=== PATIENT | male | born 1930 | race Caucasian/White ===

== ENCOUNTER 2018-06-09 07:13 | Observation (INO) | payer MEDICARE, BC ==
[2018-06-09] MEDS ORDERED: ASPIRIN 81 MG CHEWABLE TABLET PO ONE (07:22)
[2018-06-09] MEDS ORDERED: IPRATROPIUM/ALBUTEROL (0.5MG/3MG) NEB INH ONE (07:25)
--- NOTE | 2018-06-09 07:25 | Emergency Department Record ---
History of Present Illness - General Chief Complaint: Difficulty Breathing Stated Complaint: SHORTNESS AND BREATH Time Seen by Provider: 06/09/18 07:22 Source: Patient, RN notes reviewed - History of Present Illness Initial Comments: patient suddenly SOB this am and he said maybe slightly SOB last night and he recently had pneumonia and treated at [facility] and than to [facility] rehab and discharged from there one week ago to [facility]. Patient has a pacemaker but he is not sure if it a pacer defibrillator. Athletic Monitor Dr. Romero and primary is Dr whitney. Patient denies chest pain and abdominal pain and denies leg pain and no pedal edema but he has had pedal edema in the past and his DrMelissa wanted to double his lasix use to 20 mg BID form once a day. PMH CHF and COPD and he was given a script of doxy 100 mg bid which was stared last night. - Related Data Home Medications Medication Instructions Recorded Confirmed Last Taken Acetaminophen 325 mg PO Q6H PRN 06/09/18 06/09/18 Unknown Apixaban [Eliquis] 5 mg PO BID 06/09/18 06/09/18 06/08/18 20:00 Aspirin 81 mg PO DAILY 06/09/18 06/09/18 06/08/18 08:00 Atorvastatin Calcium 20 mg PO QHS 06/09/18 06/09/18 06/08/18 20:00 Diltiazem HCl [Diltiazem 12Hr ER] 120 mg PO DAILY 06/09/18 06/09/18 06/08/18 08: 00 Doxycycline Monohydrate 100 mg PO BID 06/09/18 06/09/18 Unknown Furosemide [Lasix] 20 mg PO BIDDIUR 06/09/18 06/09/18 06/08/18 14:00 Levothyroxine Sodium 112 mcg PO DAILY 06/09/18 06/09/18 06/08/18 06:00 Magnesium Hydroxide [Milk of 15 ml PO DAILY PRN 06/09/18 06/09/18 Unknown Magnesia] Melatonin 3 mg PO QHS 06/09/18 06/09/18 06/06/18 20:00 Metoprolol Tartrate 50 mg PO BID 06/09/18 06/09/18 06/08/18 20:00 Nitroglycerin 0.4MG [Nitrostat 0.4 mg SL Q5MIN PRN 06/09/18 06/09/18 Unknown 0.4MG] Olanzapine [Zyprexa] 2.5 mg PO BID 06/09/18 06/09/18 06/08/18 20:00 Trolamine Salicylate/Aloe Vera 1 applic TOP TID PRN 06/09/18 06/09/18 Unknown [Aspercreme 10% Cream] Allergies Allergy/AdvReac Type Severity Reaction Status Date / Time No Known Drug Allergies Allergy Verified 06/09/18 07:27 Review of Systems Reviewed: No additional complaints except as noted below Constitutional: Reports: As per HPI. Denies: Chills, Fever, Malaise, Night sweats, Weakness, Weight change Eyes: Reports: As per HPI. Denies: Eye discharge, Eye pain, Photophobia, Vision change ENT: Reports: As per HPI. Denies: Congestion, Dental pain, Ear pain, Epistaxis , Hearing loss, Throat pain Respiratory: Reports: As per HPI, Dyspnea. Denies: Cough, Hemoptysis, Stridor, Wheezes Cardiovascular: Reports: As per HPI. Denies: Arrhythmia, Chest pain, Dyspnea on exertion, Edema, Murmurs, Orthopnea, Palpitations, Paroxysmal nocturnal dyspnea, Rheumatic Fever, Syncope Endocrine: Reports: As per HPI. Denies: Fatigue, Heat or cold intolerance, Polydipsia, Polyuria Gastrointestinal: Reports: As per HPI. Denies: Abdominal pain, Constipation, Diarrhea, Hematemesis, Hematochezia, Melena, Nausea, Vomiting Genitourinary: Reports: As per HPI. Denies: Dysuria, Frequency, Hematuria, Incontinence, Retention, Testicular pain, Testicular mass, Urgency Musculoskeletal: Reports: As per HPI. Denies: Arthralgia, Back pain, Gout, Joint swelling, Myalgia, Neck pain Skin: Reports: As per HPI. Denies: Bruising, Change in color, Change in hair/ nails, Lesions, Pruritus, Rash Neurological: Reports: As per HPI. Denies: Abnormal gait, Confusion, Headache, Numbness, Paresthesias, Seizure, Tingling, Tremors, Vertigo, Weakness Psychiatric: Reports: As per HPI. Denies: Anxiety, Auditory hallucinations, Depression, Homicidal thoughts, Suicidal thoughts, Visual hallucinations Hematological/Lymphatic: Reports: As per HPI. Denies: Anemia, Blood Clots, Easy bleeding, Easy bruising, Swollen glands Physical Exam - General General Appearance: Alert, Oriented x3, Cooperative, Mild distress - Head Head exam: Normal inspection - Eye Eye exam: Normal appearance, PERRL Pupils: Normal accommodation - ENT ENT exam: Normal exam, Mucous membranes moist, Normal external ear exam, Normal orophraynx, TM's normal bilaterally Ear exam: Normal external inspection. negative: External canal tenderness Nasal Exam: Normal inspection. negative: Discharge, Sinus tenderness Mouth exam: Normal external inspection, Tongue normal Teeth exam: Normal inspection. negative: Dental caries Throat exam: Normal inspection. negative: Tonsillar erythema, Tonsillar exudate - Neck Neck exam: Normal inspection, Full ROM. negative: Tenderness - Respiratory Respiratory exam: Decreased breath sounds (more on the right side, no wheezing heard). negative: Respiratory distress - Cardiovascular Cardiovascular Exam: Regular rate, Normal rhythm, Normal heart sounds - GI/Abdominal GI/Abdominal exam: Soft, Normal bowel sounds. negative: Tenderness - Rectal Rectal exam: Deferred - exam: Deferred - Extremities Extremities exam: Normal inspection, Full ROM, Normal capillary refill. negative: Tenderness - Back Back exam: Reports: Normal inspection, Full ROM. Denies: Muscle spasm, Rash noted, Tenderness - Neurological Neurological exam: Alert, Normal gait, Oriented X3, Reflexes normal - Psychiatric Psychiatric exam: Normal affect, Normal mood - Skin Skin exam: Dry, Intact, Normal color, Warm Course - Reevaluation(s) Reevaluation #1: patient is breathing better when back from Xray. 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 Talked with patient anddaughter about doing a CTA with contrast and the use of dye and he has chronic kidney disease. He already is getting treated for a PE now with elliquis and with his kidney don't want to cause his kidney function to get worse. daughter and patient in agreement. Will discus with his bed rubber Dr Romero and daughter also said he had 1.5 liters of fluid removed from his lungs when in [facility] may . 06/09/18 09:29 06/09/18 11:17 Reevaluation #2: discussed case with Dr. Renato ARREGUIN and he recommended treating him here and if worse transfer to [facility]. No beds available 06/09/18 10:42 06/09/18 11:20 No chest pain and he states his breathing is back to normal. Reevaluation #3: talked to daughter and patient and they are willing to stay here and if worse they want to go to [facility]. 06/09/18 11:22 Reevaluation #4: discussed case with Franck LaAIDA and she acceppted to the floor. 06/09/18 11:31 Medical Decision Making - Data Complexity MDM Data: Labs Ordered and/or Reviewed (trop t .06, d dimer 5.42,bnp 7558), X- Ray Ordered and/or Reviewed (bilateral pleural effusion right moderate left mild and some are space disease and mild pulmonary congestion consistent with CHF) - Lab Data Result diagrams: 06/09/18 07:30 06/09/18 07:30 Disposition Clinical Impression: Pleural effusion, Infiltrate of lung present on chest x-ray, Troponin level elevated, D-dimer, elevated Dyspnea Qualifiers: Dyspnea type: shortness of breath Qualified Code(s): R06.02 - Shortness of breath; R06.00 - Dyspnea, unspecified; R06.01 - Orthopnea CHF (congestive heart failure) Qualifiers: Heart failure type: systolic Heart failure chronicity: acute Qualified Code(s) : I50.21 - Acute systolic (congestive) heart failure COPD (chronic obstructive pulmonary disease) Qualifiers: COPD type: COPD with acute exacerbation Qualified Code(s): J44.1 - Chronic obstructive pulmonary disease with (acute) exacerbation Atrial fibrillation Qualifiers: Atrial fibrillation type: chronic Qualified Code(s): I48.2 - Chronic atrial fibrillation CKD (chronic kidney disease) Qualifiers: Chronic kidney disease stage: stage 2 (mild) Qualified Code(s): N18.2 - Chronic kidney disease, stage 2 (mild) Decision to Admit: Admit from ER Condition: (1) Good Forms: Patient Portal Access Time of Disposition: 11:22 Quality - Quality Measures Quality Measures: N/A - Blood Pressure Screening Does Patient Have Any of the Following: No, Active Dx of HTN Blood Pressure Classification: Hypertensive Reading Systolic Measurement: 127 Diastolic Measurement: 97 Screening for High Blood Pressure: Patient Exclusion, Hx of HTN [G9744]
[2018-06-09] MEDS ORDERED: FUROSEMIDE IV 40MG/4ML VIAL IVP ONE (07:42)
[2018-06-09 08:01] LABS: BASO % 0.4 % (0-6); EOS % 5.2 % (0-6); GRAN % 70.9 % (47-80); HEMATOCRIT 42.5 % (42.0-52.0); HEMOGLOBIN 13.7 gm/dl (14.0-18.0); LYMPH % 12.8 % (16-45); MEAN CORPUSCULAR HEMOGLOBIN 31.2 pg (27-33); MEAN CORPUSCULAR HGB CONC 32.2 g/dl (32-36); MEAN PLATELET VOLUME 10.3 fl (7.4-10.4); MONO % 10.7 % (0-9); PLATELET COUNT 252 K/uL (130-400); RED BLOOD COUNT 4.38 M/uL (4.40-5.70); RED CELL DISTRIBUTION WIDTH 15.4 % (11.5-14.5); WHITE BLOOD COUNT W/O DIFF 7.8 K/uL (4.2-12.2)
[2018-06-09 08:09] LABS: CREATININE 1.3 mg/dL (0.7-1.2)
[2018-06-09 08:13] LABS: INFLUENZA A NEGATIVE (NEGATIVE); INFLUENZA B NEGATIVE (NEGATIVE)
[2018-06-09 08:18] LABS: INR 1.2; PARTIAL THROMBOPLASTIN TIME 32.5 SECONDS (24.5-39.1)
[2018-06-09] MEDS ORDERED: AZITHROMYCIN 500 MG TABLET PO ONE (10:41)
[2018-06-09] MEDS ORDERED: CEFTRIAXONE SODIUM 1 GM in 0.9 % SODIUM CHLORIDE 100ML 100 ML IVPB ONE (10:41)
[2018-06-09] MEDS ORDERED: NITROGLYCERIN 0.4MG SL TABLET #25 BTL SL PRN (11:45)
[2018-06-09] MEDS ORDERED: ACETAMINOPHEN 325 MG TAB PO PRN (12:14)
[2018-06-09] MEDS: LEVOTHYROXINE SOD 112 MCG TAB PO SCH (13:30)
[2018-06-09] MEDS: APIXABAN 5MG TABLET PO SCH ×2 (13:49→21:13)
[2018-06-09] MEDS: METOPROLOL TART 50 MG TABLET PO SCH ×2 (13:50→21:04)
[2018-06-09] MEDS: DILTIAZEM HCL 120 MG ER CAPSULE PO SCH (13:50)
[2018-06-09] MEDS: OLANZAPINE 5MG TABLET PO SCH ×2 (13:51→21:05)
[2018-06-09] MEDS ORDERED: LIDOCAINE 4% TOP PRN (14:16)
[2018-06-09] MEDS ORDERED: FUROSEMIDE IV 20MG/2ML VIAL IVP SCH (16:00)
[2018-06-09] MEDS ORDERED: ATORVASTATIN 20 MG TABLET PO SCH (22:00)
[2018-06-09] MEDS ORDERED: MELATONIN 5 MG TABLET PO SCH (22:00)
[2018-06-10] MEDS: LEVOTHYROXINE SOD 112 MCG TAB PO SCH (06:11)
[2018-06-10 06:45] LABS: BLOOD UREA NITROGEN 18 mg/dL (8-23); CREATININE 1.2 mg/dL (0.7-1.2); EST GLOMERULAR FILTRATION RATE > 60 mL/min; GLUCOSE,RANDOM 87 mg/dL (74-109)
--- NOTE | 2018-06-10 07:27 | RADIOLOGY REPORT ---
EXAM: CHEST, TWO VIEWS HISTORY: SHORTNESS OF BREATH THIS MORNING. DIAGNOSED WITH PNEUMONIA ONE WEEK AGO. TECHNIQUE: Upright AP and lateral views of the chest were obtained. Comparison: None. FINDINGS: A dual lead transvenous cardiac stimulator is in place via the left subclavian approach with lead tips in the right atrium and right ventricle respectively. There is opacification of the lower right hemithorax with costophrenic angle blunting consistent with moderate size pleural effusion. There is associated underlying air space disease. These obscure the right heart border limiting evaluation for heart size. Mild air space disease in the retrocardiac left lung base is also suggested associated with a small pleural effusion. The pulmonary vasculature is mildly prominent. No pneumothorax. IMPRESSION: 1. BILATERAL PLEURAL EFFUSIONS, MODERATE IN SIZE ON THE RIGHT AND SMALL ON THE LEFT. THERE IS ASSOCIATED AIR SPACE DISEASE IN EACH LUNG BASE CONSISTENT WITH ATELECTASIS OR INFILTRATE. 2. THE HEART SIZE IS DIFFICULT TO EVALUATE THE RIGHT HEART BORDER IS OBSCURED. THE PULMONARY VASCULATURE APPEARS MILDLY PROMINENT. A COMPONENT OF FLUID OVERLOAD/CHF CANNOT BE EXCLUDED. JOB NUMBER: [id number] [facility]
--- NOTE | 2018-06-10 09:44 | History & Physical ---
History of Present Illness - Date of Service Date of Service for History & Physical: 06/10/18 - History of Present Illness Admitting Diagnosis: chf. dyspnea. copd. right pleural effussion. trop t elevated. CKD History of Present Illness: Sd Bowen is an 87 y.o. male who presented to the [facility] ED on 2018 d/t worsening SOB. On 06/07/18, he was started on Doxycycline 100mg BID and was told to double his lasix dose to 20mg BID from daily by his PCP. His PCP also advised him to present to the ED should he develop a fever, SOB or chills. In the ED, pt denied having chest pain, abdominal pain or leg pain. Reports that recently he was treated for PNA as [facility]. From the hospital, he went to [facility] in [place] for therapy and then just moved to [facility] approximately 1 week ago. Pt reports that he follows with Dr. Glasgow at [facility] cardiology and was actually scheduled to have a RAVI on 06/10/18 at [facility] to monitor a thrombus in his atrial appendage for which he is on Eliquis 5mg BID. PMHx includes CHF, COPD and CKD. Reports having had 1.5L of Fluid removed from his lungs in the past. PCP: Dr. Kingsley Lozano Brokerage Coordinator: Dr. Stalin Glasgow ED Course: Vitals: T 97.1, BP 127/97, HR 102, RR 32, 92% on RA, wt. 141 EKG: Paced Rhythm, underlying Atrial Fibrillation CXR: Bilateral Pleural Effusions, likely atelectasis or infiltrate, CHF could not be excluded D-Dimer: 5.42, Creatinine 1.3, GFR 56, Troponin 0.060, Pro-BNP 7578 06/10/18: Today, pt is resting upright in bed, with daughter August at the bedside. He reports that he is no longer SOB. Denies having any chest pain or abdominal pain. Is able to discuss his medications and medical conditions without difficulty or lack of understanding. He and daughter report that he used to be on 40mg of Lasix daily but was taken off of it while at [facility] and then he filled up with fluid again. His biggest concern this morning is his neuropathic pain. States that his PCP took him off of his Gabapentin and was given a cream but is very unsure as to how often he should put the cream on and who is going to do it for him as he has trouble bending over to reach his feet. Travel Screening - Travel/Exposure Within Last 30 Days Have you traveled within the last 30 days?: No - Travel/Exposure Within Last Year Have you traveled outside the [place] in the last year?: No - Additonal Travel Details Have you been exposed to anyone with a communicable illness?: No - Travel Symptoms Symptom Screening: None Review of Systems Constitutional: Reports: As per HPI. Denies: Chills, Fever, Malaise, Night sweats, Weakness, Weight change Eyes: Reports: As per HPI. Denies: Eye discharge, Eye pain, Photophobia, Vision change ENT: Reports: As per HPI. Denies: Congestion, Dental pain, Ear pain, Epistaxis , Hearing loss, Throat pain Respiratory: Reports: As per HPI. Denies: Cough, Dyspnea, Hemoptysis, Stridor, Wheezes Cardiovascular: Reports: As per HPI. Denies: Arrhythmia, Chest pain, Dyspnea on exertion, Edema, Murmurs, Orthopnea, Palpitations, Syncope Endocrine: Reports: As per HPI. Denies: Fatigue, Heat or cold intolerance, Polydipsia, Polyuria Gastrointestinal: Reports: As per HPI. Denies: Abdominal pain, Constipation, Diarrhea, Hematemesis, Hematochezia, Melena, Nausea, Vomiting Genitourinary: Reports: As per HPI. Denies: Dysuria, Frequency, Hematuria, Incontinence, Retention, Testicular pain, Testicular mass, Urgency Musculoskeletal: Reports: As per HPI. Denies: Arthralgia, Back pain, Gout, Joint swelling, Myalgia, Neck pain Skin: Reports: As per HPI. Denies: Bruising, Change in color, Change in hair/ nails, Lesions, Pruritus, Rash Neurological: Reports: As per HPI. Denies: Abnormal gait, Confusion, Headache, Numbness, Paresthesias, Seizure, Tingling, Tremors, Vertigo, Weakness Psychiatric: Reports: As per HPI. Denies: Anxiety, Auditory hallucinations, Depression, Homicidal thoughts, Suicidal thoughts, Visual hallucinations Hematological/Lymphatic: Reports: As per HPI, Blood Clots (in atrial appendage) . Denies: Anemia, Easy bleeding, Easy bruising, Swollen glands Past Medical History - SOCIAL HISTORY Smoking Status: Former smoker - RESPIRATORY Hx Respiratory Disorders: Yes Hx Bronchitis: Yes Hx Dyspnea: Yes Hx Pneumonia: Yes - CARDIOVASCULAR Hx Abnormal EKG: Yes Hx Chest Pain: Yes Hx CHF: Yes Hx Irregular Heartbeat: Yes (A-fib) - NEURO Hx Neuro Disorders: No - GI Hx GI Disorders: No - Hx Genitourinary Disorders: No - ENDOCRINE Hx Endocrine Disorders: Yes Hx Thyroid Disease: Yes - MUSCULOSKELETAL Hx Musculoskeletal Disorders: Yes Comment:: increased weakness and decreased mobility - PSYCH Hx Psych Problems: Yes Hx Anxiety: Yes Comment:: restless at night - HEMATOLOGY/ONCOLOGY Hx Hematology/Oncology Disorders: No Family Medical History Any Significant Family History?: No Family Hx Comment (NOT TO BE USED IN PLACE OF ITEMS BELOW): Pt not sure H&P Meds/Allergies - Allergies Allergies: Allergies Allergy/AdvReac Type Severity Reaction Status Date / Time No Known Drug Allergies Allergy Verified 06/09/18 07:27 - Home Medications Home Medications Medication Instructions Recorded Confirmed Last Taken Acetaminophen 325 mg PO Q6H PRN 06/09/18 06/09/18 Unknown Apixaban [Eliquis] 5 mg PO BID 06/09/18 06/09/18 06/08/18 20:00 Aspirin 81 mg PO DAILY 06/09/18 06/09/18 06/08/18 08:00 Atorvastatin Calcium 20 mg PO QHS 06/09/18 06/09/18 06/08/18 20:00 Diltiazem HCl [Diltiazem 12Hr ER] 120 mg PO DAILY 06/09/18 06/09/18 06/08/18 08: 00 Doxycycline Monohydrate 100 mg PO BID 06/09/18 06/09/18 Unknown Furosemide [Lasix] 20 mg PO BIDDIUR 06/09/18 06/09/18 06/08/18 14:00 Levothyroxine Sodium 112 mcg PO DAILY 06/09/18 06/09/18 06/08/18 06:00 Magnesium Hydroxide [Milk of 15 ml PO DAILY PRN 06/09/18 06/09/18 Unknown Magnesia] Melatonin 3 mg PO QHS 06/09/18 06/09/18 06/06/18 20:00 Metoprolol Tartrate 50 mg PO BID 06/09/18 06/09/18 06/08/18 20:00 Nitroglycerin 0.4MG [Nitrostat 0.4 mg SL Q5MIN PRN 06/09/18 06/09/18 Unknown 0.4MG] Olanzapine [Zyprexa] 2.5 mg PO BID 06/09/18 06/09/18 06/08/18 20:00 Trolamine Salicylate/Aloe Vera 1 applic TOP TID PRN 06/09/18 06/09/18 Unknown [Aspercreme 10% Cream] Previous Rx's Medication Instructions Recorded Furosemide [Lasix] 20 mg PO BIDDIUR tablet 06/10/18 - Active Medications Active Medications: Current Medications Acetaminophen (Tylenol 325mg) 325 mg PO Q6H PRN PRN Reason: PAIN - MILD (1-4) Apixaban (Eliquis) 5 mg PO BID [facility] Last Admin: 06/09/18 21:13 Dose: 5 mg Aspirin (Ecotrin (Ec)) 325 mg PO DAILY [facility] Atorvastatin Calcium (Lipitor) 20 mg PO QHS [facility] Last Admin: 06/09/18 21:04 Dose: 20 mg Diltiazem HCl (Cardizem Cd) 120 mg PO DAILY [facility] Last Admin: 06/09/18 13:50 Dose: 120 mg Furosemide (Lasix) 20 mg PO BIDDIUR [facility] Levothyroxine Sodium (Synthroid) 112 mcg PO DAILYTHY [facility] Last Admin: 06/10/18 06:11 Dose: 112 mcg Melatonin (Melatonin) 2.5 mg PO QHS [facility] Last Admin: 06/09/18 21:05 Dose: 2.5 mg Metoprolol Tartrate (Lopressor) 50 mg PO BID [facility] Last Admin: 06/09/18 21:04 Dose: 50 mg Nitroglycerin (Nitrostat 0.4mg) 0.4 mg SL Q5MIN PRN PRN Reason: CHEST PAIN Olanzapine (Zyprexa) 2.5 mg PO BID [facility] Last Admin: 06/09/18 21:05 Dose: 2.5 mg Patient Own Med: (Lidocaine 4% Cream) 1 each TOP TID PRN PRN Reason: NEUROPATHIC PAIN Physical Exam - Vital Signs Vital Signs: Vital Signs - Last 24 Hrs Temp Pulse Pulse Pulse Pulse Resp BP 06/10/18 08:00 97.7 F 92 H 14 06/10/18 04:00 98 H 18 06/09/18 23:55 89 18 06/09/18 21:00 16 06/09/18 20:00 97.1 F L 74 16 06/09/18 15:10 84 20 06/09/18 14:54 18 06/09/18 14:40 97.8 F 69 16 06/09/18 13:14 98.2 F 95 H 16 06/09/18 12:57 93 H 16 104/66 06/09/18 09:57 101 H 21 BP Pulse Ox 06/10/18 08:00 129/77 95 06/10/18 04:00 133/86 94 L 06/09/18 23:55 122/78 92 L 06/09/18 21:00 06/09/18 20:00 111/63 96 06/09/18 15:10 98 06/09/18 14:54 06/09/18 14:40 97/59 98 06/09/18 13:14 112/63 97 06/09/18 12:57 98 06/09/18 09:57 109/68 96 - General General Appearance: Alert, Oriented x3, Cooperative, No acute distress - Head Head exam: Normal inspection - Eye Eye exam: Normal appearance, PERRL Pupils: Normal accommodation - ENT ENT exam: Normal exam, Mucous membranes moist Ear exam: Normal external inspection. negative: External canal tenderness Nasal Exam: Normal inspection. negative: Discharge, Sinus tenderness Mouth exam: Normal external inspection, Tongue normal Teeth exam: Normal inspection. negative: Dental caries Throat exam: Normal inspection. negative: Tonsillar erythema, Tonsillar exudate - Neck Neck exam: Normal inspection, Full ROM. negative: Tenderness - Respiratory Respiratory exam: Normal lung sounds bilaterally. negative: Accessory muscle use, Respiratory distress - Cardiovascular Cardiovascular Exam: Regular rate, Normal rhythm, Normal heart sounds - GI/Abdominal GI/Abdominal exam: Soft, Normal bowel sounds. negative: Tenderness - Rectal Rectal exam: Deferred - exam: Deferred - Extremities Extremities exam: Normal inspection, Full ROM, Normal capillary refill. negative: Pedal edema, Tenderness - Back Back exam: Reports: Normal inspection, Full ROM. Denies: Muscle spasm, Rash noted, Tenderness - Neurological Neurological exam: Alert, Oriented X3, Reflexes normal - Psychiatric Psychiatric exam: Normal affect, Normal mood - Skin Skin exam: Dry, Intact, Normal color, Warm Results - Labs Result Diagrams: 06/09/18 07:30 06/10/18 06:19 Labs Last 24 Hours: Laboratory Results - last 24 hr 06/09/18 06/09/18 06/10/18 15:44 23:40 06:19 Sodium Potassium Chloride Carbon Dioxide Anion Gap BUN Creatinine Estimated GFR Random Glucose Calcium Troponin T 0.057 H 0.056 H 0.064 H 06/10/18 06:19 Sodium 141 Potassium 3.8 Chloride 100 Carbon Dioxide 28.0 Anion Gap 13.0 BUN 18 Creatinine 1.2 Estimated GFR > 60 Random Glucose 87 Calcium 8.9 Troponin T - Imaging and Cardiology CT scan - chest Status: Report reviewed VTE H&P Assessment - Risk for VTE Risk for VTE: Yes Risk Level: High Risk Assessment Date: 06/10/18 Risk Assessment Time: 11:36 VTE Orders Placed or Will Be Placed: Yes Plan - Detailed Diagnosis and Plan (1) Dyspnea Current Visit: Yes Status: Acute Qualifiers: Dyspnea type: shortness of breath Qualified Code(s): R06.02 - Shortness of breath; R06.00 - Dyspnea, unspecified; R06.01 - Orthopnea Base Code: R06.00 - DYSPNEA, UNSPECIFIED Comment: 06/10/18: -RR 18, HR 98, BP 133/86, Temp 97.1, SpO2 -CXR: Bilateral pleural effusions, atelectasis or infiltrate in each lung base, CHF cannot be excluded -Received Lasix 40mg IV x 2 -BUN and Creatinine improved from 20 to 18 and 1.3 to 1.2 -Potassium stable at 3.8 -Lasix changed to 20mg PO BID (2) DVT prophylaxis Current Visit: Yes Status: Acute Base Code: SED9157 - Comment: 06/10/18: -High Risk -Already anticoagulated with Eliquis 5mg PO BID, will continue (3) Full code status Current Visit: Yes Status: Acute Base Code: Z78.9 - OTHER SPECIFIED HEALTH STATUS Comment: 06/10/18: -Full Code this admission (4) CKD (chronic kidney disease) Current Visit: Yes Status: Acute Qualifiers: Chronic kidney disease stage: stage 2 (mild) Qualified Code(s): N18.2 - Chronic kidney disease, stage 2 (mild) Base Code: N18.9 - CHRONIC KIDNEY DISEASE, UNSPECIFIED Comment: 06/10/18: -Creatinine improved from 1.3 to 1.2, GFR improved from 56 to >60 -[facility] records indicate Creatinine 1.4 - 1.5, GFR 45-50 -Reduce Lasix from 40mg IV BID to 20mg PO BID (5) D-dimer, elevated Current Visit: Yes Status: Acute Base Code: R79.89 - OTHER SPECIFIED ABNORMAL FINDINGS OF BLOOD CHEMISTRY Comment: 06/10/18: -Ddimer: 5.42 -Known thrombus on atrial appendage, D-dimer likely elevated d/t this -CTA declined in ER as risk with contrast dye to great -Was to have RAVI with [facility] cardiology today, pt to reschedule -Continue Eliquis 5mg PO BID (as per Cardiology) (6) Pleural effusion Current Visit: Yes Status: Acute Base Code: J90 - PLEURAL EFFUSION, NOT ELSEWHERE CLASSIFIED Comment: 06/10/18: -Hx of Pleural Effusion, has had 1.5 L removed -Lasix 40mg IV x 2 doses received -Changed to Lasix 20mg PO BID -RR 16 and 98% on RA with no reports of SOB (7) Troponin level elevated Current Visit: Yes Status: Acute Base Code: R74.8 - ABNORMAL LEVELS OF OTHER SERUM ENZYMES Comment: 06/10/18: -Hx of elevated troponins per [facility] records (0.08 on 05/17/18) -Trops x 4 remained stable and at baseline -Denies CP or SOB (8) CHF (congestive heart failure) Current Visit: Yes Status: Acute Qualifiers: Heart failure type: systolic Heart failure chronicity: acute Qualified Code(s): I50.21 - Acute systolic (congestive) heart failure Base Code: I50.9 - HEART FAILURE, UNSPECIFIED Comment: 06/10/18: -CXR: Unable to r/o CHF -Pro-BNP: 7578 on 06/09/18 -Weight loss of 4 lbs overnight -Lasix 40mg IV x 2 doses given, switched to Lasix 20mg PO BID -Potassium stable
[2018-06-10] MEDS: DILTIAZEM HCL 120 MG ER CAPSULE PO SCH (09:55)
[2018-06-10] MEDS: METOPROLOL TART 50 MG TABLET PO SCH (09:55)
[2018-06-10] MEDS: APIXABAN 5MG TABLET PO SCH (09:56)
[2018-06-10] MEDS ORDERED: ASPIRIN 325 MG TAB ENTERIC-COATED PO SCH (10:00)
[2018-06-10] MEDS ORDERED: FUROSEMIDE 20 MG TABLET PO SCH (10:00)
[2018-06-10] MEDS: OLANZAPINE 5MG TABLET PO SCH (10:03)
--- NOTE | 2018-06-10 10:33 | Discharge Summary ---
Providers Discharge Summary Date: 06/10/18 Date of admission: 06/09/18 12:24 Attending physician: PAT DOWNS Primary care physician: JANET LOZANO M.D. Physical Exam - Vital Signs Vital Signs: Vital Signs - Last 24 Hrs Temp Pulse Pulse Pulse Resp BP BP 06/10/18 08:00 97.7 F 92 H 14 129/77 06/10/18 04:00 98 H 18 133/86 06/09/18 23:55 89 18 122/78 06/09/18 21:00 16 06/09/18 20:00 97.1 F L 74 16 111/63 06/09/18 15:10 84 20 06/09/18 14:54 18 06/09/18 14:40 97.8 F 69 16 97/59 06/09/18 13:14 98.2 F 95 H 16 112/63 06/09/18 12:57 93 H 16 104/66 Pulse Ox 06/10/18 08:00 95 06/10/18 04:00 94 L 06/09/18 23:55 92 L 06/09/18 21:00 06/09/18 20:00 96 06/09/18 15:10 98 06/09/18 14:54 06/09/18 14:40 98 06/09/18 13:14 97 06/09/18 12:57 98 - General General Appearance: Alert, Oriented x3, Cooperative, No acute distress - Head Head exam: Normal inspection - Eye Eye exam: Normal appearance, PERRL Pupils: Normal accommodation - ENT ENT exam: Normal exam, Mucous membranes moist Ear exam: Normal external inspection. negative: External canal tenderness Nasal Exam: Normal inspection. negative: Discharge, Sinus tenderness Mouth exam: Normal external inspection, Tongue normal Teeth exam: Normal inspection. negative: Dental caries Throat exam: Normal inspection. negative: Tonsillar erythema, Tonsillar exudate - Neck Neck exam: Normal inspection, Full ROM. negative: Tenderness - Respiratory Respiratory exam: Normal lung sounds bilaterally. negative: Respiratory distress - Cardiovascular Cardiovascular Exam: Regular rate, Normal rhythm, Normal heart sounds Peripheral Pulses: 2+: Radial (R), Radial (L), Dorsalis Pedis (R), Dorsalis Pedis (L) - GI/Abdominal GI/Abdominal exam: Soft, Normal bowel sounds. negative: Tenderness - Rectal Rectal exam: Deferred - exam: Deferred - Extremities Extremities exam: Normal inspection, Full ROM, Normal capillary refill. negative: Pedal edema, Tenderness - Back Back exam: Reports: Normal inspection, Full ROM. Denies: Muscle spasm, Rash noted, Tenderness - Neurological Neurological exam: Alert, Normal gait, Oriented X3, Reflexes normal - Psychiatric Psychiatric exam: Normal affect, Normal mood - Skin Skin exam: Dry, Intact, Normal color, Warm Hospitalization - Hospitalization Admission Diagnosis: chf. dyspnea. copd. right pleural effussion. trop t elevated. CKD - Problem List/Discharge Diagnosis (1) Dyspnea Status: Acute Discharge Diagnosis: Dyspnea type: shortness of breath Qualified Code(s): R06.02 - Shortness of breath; R06.00 - Dyspnea, unspecified; R06.01 - Orthopnea Base Code: R06.00 - DYSPNEA, UNSPECIFIED Comment: 06/10/18: -RR 18, HR 98, BP 133/86, Temp 97.1, SpO2 -Received Lasix 40mg IV x 2, changed to Oral Lasix -Was prescribed Lasix 20mg PO BID by PCP on Thursday06/07/18, advised pt to return to this dose -BUN and Creatinine improved from 20 to 18 and 1.3 to 1.2 -Potassium stable at 3.8 -Instructed to F/u with PCP in 1 week (2) D-dimer, elevated Status: Acute Base Code: R79.89 - OTHER SPECIFIED ABNORMAL FINDINGS OF BLOOD CHEMISTRY Comment: 06/10/18: -Ddimer: 5.42 -Known thrombus on atrial appendage, D-dimer likely elevated d/t this -CTA declined in ER as risk with contrast dye to great -Was to have RAVI with [facility] today, pt to reschedule -Continue Eliquis 5mg PO BID (as per Cardiology) (3) DVT prophylaxis Status: Acute Base Code: MBS2906 - Comment: 06/10/18: -High Risk -Already anticoagulated with Eliquis 5mg PO BID, will continue (4) Full code status Status: Acute Base Code: Z78.9 - OTHER SPECIFIED HEALTH STATUS Comment: : -Full Code this admission (5) Pleural effusion Status: Acute Base Code: J90 - PLEURAL EFFUSION, NOT ELSEWHERE CLASSIFIED Comment: 06/10/18: -Hx of Pleural Effusion, has had 1.5 L removed -Lasix 40mg IV x 2 doses received -Changed to Lasix 20mg PO BID -RR 16 and 98% on RA with no reports of SOB - Hospitalization Course Disposition: Snf Facility Procedures: Imaging and X-Rays 06/09/18 07:33 CHEST 2 VIEWS [RAD] Stat Cardiology Procedures 06/09/18 07:22 EKG NOW 06/09/18 11:40 Board Winder .Continuous 06/09/18 11:43 EKG QDX2@0600 Abnormal Labs: Abnormal Lab Results 06/09/18 06/09/18 06/09/18 Range/Units 07:30 07:30 07:30 RBC 4.38 L (4.40-5.70) M/uL Hgb 13.7 L (14.0-18.0) gm/dl RDW 15.4 H (11.5-14.5) % Lymphocytes % 12.8 L (16-45) % Monocytes % 10.7 H (0-9) % D-Dimer 5.42 H (0-0.59) mg/L FEU Creatinine 1.3 H (0.7-1.2) mg/dL Troponin T 0.060 H (0-0.010) ng/mL NT-Pro-B Natriuret Pep 7578.00 H (<450) pg/mL 06/09/18 06/09/18 06/10/18 Range/Units 15:44 23:40 06:19 RBC (4.40-5.70) M/uL Hgb (14.0-18.0) gm/dl RDW (11.5-14.5) % Lymphocytes % (16-45) % Monocytes % (0-9) % D-Dimer (0-0.59) mg/L FEU Creatinine (0.7-1.2) mg/dL Troponin T 0.057 H 0.056 H 0.064 H (0-0.010) ng/mL NT-Pro-B Natriuret Pep (<450) pg/mL Condition at Discharge: (1) Good Discharge Medications - Discharge Medications Home Medications: Ambulatory Orders Acetaminophen 325 mg PO Q6H PRN 06/09/18 [Last Taken Unknown] Apixaban [Eliquis] 5 mg PO BID 06/09/18 [Last Taken 06/08/18 20:00] Aspirin 81 mg PO DAILY 06/09/18 [Last Taken 06/08/18 08:00] Atorvastatin Calcium 20 mg PO QHS 06/09/18 [Last Taken 06/08/18 20:00] Diltiazem HCl [Diltiazem 12Hr ER] 120 mg PO DAILY 06/09/18 [Last Taken 06/08/18 08:00] Doxycycline Monohydrate 100 mg PO BID 06/09/18 [Last Taken Unknown] Furosemide [Lasix] 20 mg PO BIDDIUR 06/09/18 [Last Taken 06/08/18 14:00] Levothyroxine Sodium 112 mcg PO DAILY 06/09/18 [Last Taken 06/08/18 06:00] Magnesium Hydroxide [Milk of Magnesia] 15 ml PO DAILY PRN 06/09/18 [Last Taken Unknown] Melatonin 3 mg PO QHS 06/09/18 [Last Taken 06/06/18 20:00] Metoprolol Tartrate 50 mg PO BID 06/09/18 [Last Taken 06/08/18 20:00] Nitroglycerin 0.4MG [Nitrostat 0.4MG] 0.4 mg SL Q5MIN PRN 06/09/18 [Last Taken Unknown] Olanzapine [Zyprexa] 2.5 mg PO BID 06/09/18 [Last Taken 06/08/18 20:00] Trolamine Salicylate/Aloe Vera [Aspercreme 10% Cream] 1 applic TOP TID PRN 06/09 [Last Taken Unknown] Furosemide [Lasix] 20 mg PO BIDDIUR tablet 06/10/18 [Last Taken Unknown] Discharge Plan - Discharge Instructions Activity at Discharge: Increase Activity as Tolerated, Resume Usual Activities As Tolerated Diet at Discharge: Advance to Usual Diet Additional Instructions: 2 Activity: Increase Activity as Tolerated Resume Usual Activities As Tolerated 2 Diet: Advance to Usual Diet 2 2 Follow Up: Follow up with your Primary Care Physician, Dr. Lozano, within the next week. Reschedule your RAVI appointment with Dr. Glasgow at [facility] 2 2 Additional: [Can use Lidocaine 4% cream prescribed during hospital visit at home , apply to affected areas twice a day Should your symptoms worsen again, return to the Emergency Department] Quality Measures - Quality Measures Quality Measures: Atrial Fibrillation & Atrial Flutter: Chronic Anticoagulation Therapy, Advance Directives, Documentation of Current Medications in Medical Record, Elder Maltreatment Screen and Follow-Up Plan, Heart Failure, Screening for High Blood Pressure and F/U Documented - Current Medications Quality Measure: Measure #130: Documentation of Current Medications Documentation of Current Medications: <Current Medications Documented/Reviewed> [V3663] - Blood Pressure Screening Quality Measure: Screening for High Blood Pressure and Follow-Up Documented Does Patient Have Any of the Following: No Blood Pressure Classification: Normal BP Reading Systolic Measurement: 104 Diastolic Measurement: 66 Screening for High Blood Pressure: < Normal BP, F/U Not Required > [G8783] - Atrial Fibrillation and Atrial Flutter Quality Measure: Atrial Fibrillation & Atrial Flutter: Chronic Anticoagulation Therapy Does Patient Have Any of the Following: No CHADS2 Risk Stratification: Age 75 or Greater, Heart Failure or Impaired LVSF Risk Stratification Summary: One or more high risk factors OR more than one moderate risk factor exists. [G8972] Anticoagulation Therapy: <Oral anticoagulant Prescribed> [P8937] - Heart Failure (PAT/ARB Therapy) Quality Measure: Heart Failure Left Ventricular Systolic Function: Unknown PAT Inhibitor or ARB Therapy for LVSD: Not Eligible - Heart Failure (Beta-antolin Therapy) Quality Measure: Heart Failure Left Ventricular Systolic Function: Unknown Beta-Antolin Therapy for LVEF < 40%: Not Eligible - Advance Directives Quality Measure: Measure #47: Care Plan Advance Directives Established: No Advance Directives Information Provided To Patient: Declined Advance Directives on File: Yes Advance Care Planning: <Care Plan/Decision Maker Documented; Discussed & Documented> [9873M] - Elder Abuse Suspicion Index Screening: Elder Abuse Suspicion Index Screening Rely on people for bathing, dressing, shopping, banking, etc: No Prevented from getting food, clothes, medication, etc: No Made to feel shamed or threatened by someone: No Forced to sign papers or use money against will: No Feel afraid, touched in ways not wanted or hurt physically: No Poor eye contact, withdrawn, malnourished, cuts or bruises: No Screening Result: Negative result EASI Reference Information: Elham WU, Sharif Palomino, Osvaldo Richards, Jose Juan David.Development and validation of a tool to assist physicians identification of elder abuse: The Elder Abuse Suspicion Index (EASI ). Journal of Elder Abuse and Neglect, 2008; 20 (3): 276-300. - Elder Maltreatment Screen Quality Measures: Elder Maltreatment Screen and Follow-Up Plan Elder Maltreatment Screen: <Negative, No Follow-Up Plan Required> [G8736]
== END 2018-06-10 12:25 ==
LOC: ER 07:13 → MEDSURG 12:24
PROVIDERS: ADMIT Internal Medicine; ATTEND Internal Medicine
DX: I50.21 Acute systolic (congestive) heart failure (principal); R06.02 Shortness of breath; J44.9 Chronic obstructive pulmonary disease, unspecified; J90 Pleural effusion, not elsewhere classified; N18.2 Chronic kidney disease, stage 2 (mild); R79.89 Other specified abnormal findings of blood chemistry; R74.8 Abnormal levels of other serum enzymes
CPT/HCPCS: 71046; 80048; 83880; 84484; 85025; 85379; 85610; 85730; 87400; 93005; 93010; 94640; 96365; 96366; 96374; 99220; 99285; J1940

== ENCOUNTER 2018-07-26 05:43 | Emergency (ER) | payer MEDICARE, BC ==
[2018-07-26] MEDS ORDERED: TRANEXAMIC ACID 1,000 MG/10 ML ML TOP ONE (05:44)
--- NOTE | 2018-07-26 06:11 | Emergency Department Record ---
History of Present Illness - General Chief complaint: Nosebleed/epistaxis Stated complaint: NOSE BLEED Time Seen by Provider: 07/26/18 05:44 Source: Patient Mode of Arrival: Ambulatory Limitations: No limitations - History of Present Illness Initial comments: 87 yo male presents with left sided nose bleed since 4:30am for [facility]. He is on Eliquis. Direct pressure [facility] the [facility] was unsuccessful in stopping the bleeding. He states his last nose bleed was 4 years ago. He is on Eliquis for his atrial fibrillation. MD complaint: Epistaxis Onset/Timin -: Hour(s) Location: Nose Severity: Moderate Quality: Other Consistency: Other Improves with: None Worsens with: None Context-Epistaxis: Other (Eliquis) Context- Ear: Other Associated Symptoms: Other - Related Data Home Medications Medication Instructions Recorded Confirmed Last Taken Furosemide [Lasix] 20 mg PO 1200 07/26/18 07/26/18 Unknown Allergies Allergy/AdvReac Type Severity Reaction Status Date / Time No Known Drug Allergies Allergy Verified 06/09/18 07:27 Travel Screening - Travel/Exposure Within Last 30 Days Have you traveled within the last 30 days?: No Review of Systems Constitutional: Denies: Chills, Fever, Malaise, Weakness Eyes: Denies: Eye discharge, Eye pain, Photophobia, Vision change ENT: Reports: Epistaxis. Denies: Congestion, Throat pain Respiratory: Denies: Cough Cardiovascular: Denies: Chest pain, Palpitations, Syncope Endocrine: Denies: Fatigue Gastrointestinal: Denies: Abdominal pain, Diarrhea, Nausea, Vomiting Genitourinary: Denies: Dysuria, Frequency Musculoskeletal: Denies: Arthralgia, Back pain, Myalgia Skin: Denies: Bruising, Change in color, Rash Neurological: Denies: Headache Psychiatric: Denies: Anxiety Hematological/Lymphatic: Denies: Easy bleeding, Easy bruising Past Medical History - SOCIAL HISTORY Smoking Status: Former smoker Alcohol Use: None Drug Use: None - RESPIRATORY Hx Respiratory Disorders: Yes Hx Bronchitis: Yes Hx Dyspnea: Yes Hx Pneumonia: Yes - CARDIOVASCULAR Hx Abnormal EKG: Yes Hx Chest Pain: Yes Hx CHF: Yes Hx Irregular Heartbeat: Yes (A-fib) - NEURO Hx Neuro Disorders: No - GI Hx GI Disorders: No - Hx Genitourinary Disorders: No - ENDOCRINE Hx Endocrine Disorders: Yes Hx Thyroid Disease: Yes - MUSCULOSKELETAL Hx Musculoskeletal Disorders: Yes Comment:: increased weakness and decreased mobility - PSYCH Hx Psych Problems: Yes Hx Anxiety: Yes Comment:: restless at night - HEMATOLOGY/ONCOLOGY Hx Hematology/Oncology Disorders: No Family Medical History Any Significant Family History?: No Family Hx Comment (NOT TO BE USED IN PLACE OF ITEMS BELOW): Pt not sure Physical Exam - General General Appearance: Alert, Oriented x3, Cooperative, No acute distress Limitations: No limitations - Head Head exam: Atraumatic, Normal inspection - Eye Eye exam: Normal appearance. negative: Conjunctival injection, Scleral icterus - ENT ENT exam: Normal exam Ear exam: Normal external inspection Nasal Exam: Active bleeding. negative: Dried blood Mouth exam: Normal external inspection Teeth exam: Normal inspection Throat exam: negative: Normal inspection (blood noted in the back of the throat) - Neck Neck exam: Normal inspection - Respiratory Respiratory exam: Normal lung sounds bilaterally - Cardiovascular Cardiovascular Exam: Regular rate Peripheral Pulses: 2+: Radial (R), Radial (L) - Extremities Extremities exam: negative: Normal inspection (scattered bruising) - Neurological Neurological exam: Alert, Oriented X3 - Psychiatric Psychiatric exam: Normal affect, Normal mood - Skin Skin exam: Dry, Intact, Normal color, Warm Course - Reevaluation(s) Reevaluation #1: The left nostril was noted to have brisk bleeding Cotton soaked in TXA was placed in the left nostril with pressure This continued to be ineffective after several minutes This was repeated with fresh TXA soaked cotton A Rhinorocket balloon soaked in TXA was placed 07/26/18 06:05 07/26/18 06:29 96% on room air. He is tolerating the Rhinorocket well but some persistent oozing 07/26/18 06:46 The patient continues to bleed in spite of rhinorocket and packing TXA soaked cotton in as well [facility] call contacted given [facility] will not be able to admit without ENT I TOMMIE Matta regarding ED to ED transfer for ENT consult if the bleeding does not stop No posterior pharynx bleeding at this time 07/26/18 06:51 Hgb is 10.7 He was 11.7 on 07/07/18 07/26/18 06:57 Medical Decision Making - Lab Data Result diagrams: 07/26/18 06:15 07/26/18 06:15 Disposition Disposition: Transfer Clinical Impression: Epistaxis Disposition: Acute Care Hospital Transfer Transfer To: [facility] Reason For Transfer: Uncontrolled epistaxis Accepting Physician: Paxton Andrew Discussed w/Accepting Physician: 06:51 Condition: (2) Stable Forms: Patient Portal Access Time of Disposition: 06:51 Quality - Quality Measures Quality Measures: N/A - Blood Pressure Screening Does Patient Have Any of the Following: No Blood Pressure Classification: Pre-Hypertensive BP Reading Systolic Measurement: 123 Diastolic Measurement: 75 Screening for High Blood Pressure: < Pre-Hypertensive BP, F/U Documented > [ G8950] Pre-Hypertensive Follow-up Interventions: Referral to alternative/primary care provider.
[2018-07-26 06:54] LABS: BASO % 0.4 % (0-6); EOS % 2.5 % (0-6); GRAN % 75.7 % (47-80); HEMATOCRIT 34.8 % (42.0-52.0); HEMOGLOBIN 10.7 gm/dl (14.0-18.0); MEAN CELL VOLUME 98.9 fl (81-97); MEAN CORPUSCULAR HEMOGLOBIN 30.3 pg (27-33); MEAN CORPUSCULAR HGB CONC 30.7 g/dl (32-36); MONO % 10.4 % (0-9); PLATELET COUNT 278 K/uL (130-400); RED BLOOD COUNT 3.52 M/uL (4.40-5.70); RED CELL DISTRIBUTION WIDTH 15.2 % (11.5-14.5); WHITE BLOOD COUNT W/O DIFF 9.2 K/uL (4.2-12.2)
[2018-07-26 07:00] LABS: CREATININE 1.3 mg/dL (0.7-1.2)
[2018-07-26 07:14] LABS: INR 1.2; PARTIAL THROMBOPLASTIN TIME 32.8 SECONDS (24.5-39.1); PROTHROMBIN TIME (PATIENT) 11.9 SECONDS (9.5-12.1)
== END 2018-07-26 07:30 | disposition short-term general hospital (02) ==
LOC: ER 05:43
DX: R04.0 Epistaxis (principal); I48.91 Unspecified atrial fibrillation; I50.9 Heart failure, unspecified; Z87.891 Personal history of nicotine dependence; Z79.01 Long term (current) use of anticoagulants
CPT/HCPCS: 30903; 80048; 85025; 85610; 85730; 99285

== ENCOUNTER 2018-08-14 12:04 | Emergency (ER) | payer MEDICARE, BC ==
--- NOTE | 2018-08-14 12:28 | Emergency Department Record ---
History of Present Illness - General Chief complaint: Weakness Stated complaint: FEELING FAINT Source: Patient Mode of Arrival: EMS Limitations: No limitations - History of Present Illness Initial comments: The patient is here due to generalized weakness about a half hour ago that now is better. The patient is on Eliquis and did have a nosebleed this AM. He went to [facility] at 4 am and had his nose cauterized. Since he had been doing well. The patient did have lab work done that was WNL's for him. Prior to coming to the ER he had weakness at [facility]. The patient and his brother state the weakness is a chronic issue for him and was no worse today than he normally has. The [facility] staff then sent him to the ER against his wishes. Presently the patient feels back to normal. He had no CP, SOB, MATHEW, SIFUENTES, AP or any further bleeding. 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 He does have a chronic R lung effusion on an xray 10 days ago. MD Complaint: Generalized weakness, Lack of energy Onset/Timin -: Minutes(s) Improves with: None Worsens with: None Associated Symptoms: Denies other symptoms - [place] Coma Scale Eye Response: (4) Open spontaneously Motor Response: (6) Obeys commands Verbal Response: (5) Oriented [place] Total: 15 - Related Data Home Medications Medication Instructions Recorded Confirmed Last Taken Apixaban [Eliquis] 5 g PO DAILY 08/14/18 08/14/18 08/14/18 Atorvastatin Calcium [Lipitor] 20 mg PO DAILY 08/14/18 08/14/18 08/14/18 Clopidogrel Bisulfate [Clopidogrel] 75 mg PO DAILY 08/14/18 08/14/18 08/14/18 Furosemide [Lasix] 20 mg PO DAILY 08/14/18 08/14/18 08/14/18 Omeprazole 40 mg PO DAILY 08/14/18 08/14/18 08/14/18 Allergies Allergy/AdvReac Type Severity Reaction Status Date / Time No Known Drug Allergies Allergy Verified 08/14/18 12:07 Travel Screening - Travel/Exposure Within Last 30 Days Have you traveled within the last 30 days?: No - Travel/Exposure Within Last Year Have you traveled outside the [place] in the last year?: No - Additonal Travel Details Have you been exposed to anyone with a communicable illness?: No - Travel Symptoms Symptom Screening: None Review of Systems Constitutional: Denies: Chills, Fever Eyes: Denies: Eye discharge ENT: Denies: Congestion Respiratory: Denies: Cough, Dyspnea Cardiovascular: Denies: Arrhythmia, Chest pain Endocrine: Reports: Fatigue Gastrointestinal: Denies: Nausea Genitourinary: Denies: Hematuria Musculoskeletal: Denies: Arthralgia Skin: Denies: Bruising Past Medical History - SOCIAL HISTORY Smoking Status: Former smoker Alcohol Use: None Drug Use: None - RESPIRATORY Hx Respiratory Disorders: Yes Hx Bronchitis: Yes Hx Dyspnea: Yes Hx Pneumonia: Yes - CARDIOVASCULAR Hx Abnormal EKG: Yes Hx Chest Pain: Yes Hx CHF: Yes Hx Irregular Heartbeat: Yes (A-fib) - NEURO Hx Neuro Disorders: No - GI Hx GI Disorders: No - Hx Genitourinary Disorders: No - ENDOCRINE Hx Endocrine Disorders: Yes Hx Thyroid Disease: Yes - MUSCULOSKELETAL Hx Musculoskeletal Disorders: Yes Comment:: increased weakness and decreased mobility - PSYCH Hx Psych Problems: Yes Hx Anxiety: Yes Comment:: restless at night - HEMATOLOGY/ONCOLOGY Hx Hematology/Oncology Disorders: No Family Medical History Any Significant Family History?: No Family Hx Comment (NOT TO BE USED IN PLACE OF ITEMS BELOW): Pt not sure Physical Exam - General General Appearance: Alert, Oriented x3, Cooperative, No acute distress - Head Head exam: Atraumatic, Normocephalic, Normal inspection - Eye Eye exam: Normal appearance, PERRL - ENT Nasal Exam: negative: Active bleeding Throat exam: Normal inspection. negative: Tonsillar erythema, Tonsillar exudate - Neck Neck exam: Normal inspection, Full ROM. negative: Tenderness - Respiratory Respiratory exam: Decreased breath sounds (R lower 1/2 of the lung (chronic) The patient has a known pleural effusion.). negative: Normal lung sounds bilaterally, Respiratory distress - Cardiovascular Cardiovascular Exam: Irregular rhythm. negative: Regular rate, Normal rhythm, Normal heart sounds - GI/Abdominal GI/Abdominal exam: Soft, Normal bowel sounds. negative: Tenderness - Extremities Extremities exam: Normal inspection, Full ROM, Normal capillary refill. negative: Tenderness - Neurological Neurological exam: Alert, Normal gait (The patient is ambulating with his walker normally with no problems or weakness.), Oriented X3. negative: Abnormal gait, Motor sensory deficit Course Vital Signs 08/14/18 12:17 Temperature 97.5 F L Pulse Rate 93 H Respiratory 20 Rate Blood Pressure 116/76 Pulse Ox 96 - Reevaluation(s) Reevaluation #1: The patient is doing very well at this time. He is at his baseline and states the weakness is NOT a new thing. Since he just had lab work 7 hours ago and his bleeding has stopped I see no need to repeat those tests. The patient states he would like to go home so we will facilitate that request. The patient does have a hx of a chronic R lung effusion on an xray 10 days ago. He is encouraged to see his PCP for recheck and to get scheduled for a pleuralcentesis. 08/14/18 12:36 08/14/18 13:01 Medical Decision Making - Data Complexity MDM Data: EKG Ordered and/or Reviewed - EKG Data -: EKG Interpreted by Me EKG: No Acute Changes, Unchanged From Previous Disposition Disposition: Discharge Clinical Impression: Weakness Disposition: Home, Self-Care Condition: (2) Stable Instructions: Weakness (ED) Additional Instructions: Please continue your regular medicines and return to the ER for any problems. Please see your doctor on about getting your R lung drained again. Forms: Patient Portal Access Time of Disposition: 12:38 Quality - Quality Measures Quality Measures: N/A - Blood Pressure Screening View Details: Yes Does Patient Have Any of the Following: Active Dx of HTN Blood Pressure Classification: Hypertensive Reading Systolic Measurement: 144 Diastolic Measurement: 71 Screening for High Blood Pressure: Patient Exclusion, Hx of HTN [G9744]
== END 2018-08-14 12:49 | disposition home or self-care (01) ==
LOC: ER 12:04
DX: R53.1 Weakness (principal); R42 Dizziness and giddiness; J91.8 Pleural effusion in other conditions classified elsewhere; I48.91 Unspecified atrial fibrillation; I50.9 Heart failure, unspecified; I10 Essential (primary) hypertension; Z87.891 Personal history of nicotine dependence; Z79.01 Long term (current) use of anticoagulants
CPT/HCPCS: 93005; 93010; 99284

== ENCOUNTER 2018-08-18 12:16 | Inpatient (IN) | payer MEDICARE, BC ==
--- NOTE | 2018-08-18 12:36 | Emergency Department Record ---
History of Present Illness - General Chief complaint: Fatigue and Weakness Stated complaint: WEAKNESS,MATHEW Time Seen by Provider: 08/18/18 12:26 Source: Patient, Family Mode of Arrival: Wheelchair Limitations: No limitations - History of Present Illness Initial comments: The patient is here due to weakness over the last 2 years with NINO. The symptoms seem to be getting worse. He was here in the ER 4 days ago and had a large R sided pleural effusion. He was instructed to go to [facility] for pluralcentesis which he has had there in the past if he gets worse but he decided to come here. 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 The patient denies any CP, fever, or chills, but he has had a cough. MD Complaint: Generalized weakness Onset/Timin -: Year(s) Location: Generalized Improves with: Other Worsens with: None - [place] Coma Scale Eye Response: (4) Open spontaneously Motor Response: (6) Obeys commands Verbal Response: (5) Oriented [place] Total: 15 - Related Data Allergies Allergy/AdvReac Type Severity Reaction Status Date / Time No Known Drug Allergies Allergy Verified 08/14/18 12:07 Travel Screening - Travel/Exposure Within Last 30 Days Have you traveled within the last 30 days?: No - Travel/Exposure Within Last Year Have you traveled outside the [place] in the last year?: No - Travel Symptoms Symptom Screening: Fatigue Review of Systems Constitutional: Denies: Chills, Fever, Malaise Eyes: Denies: Eye discharge ENT: Denies: Congestion Respiratory: Reports: Dyspnea. Denies: Cough Cardiovascular: Reports: Dyspnea on exertion. Denies: Arrhythmia, Chest pain Endocrine: Reports: Fatigue Gastrointestinal: Denies: Nausea Genitourinary: Denies: Dysuria Musculoskeletal: Denies: Arthralgia Skin: Denies: Bruising Past Medical History - SOCIAL HISTORY Smoking Status: Former smoker - RESPIRATORY Hx Respiratory Disorders: Yes Hx Bronchitis: Yes Hx Dyspnea: Yes Hx Pneumonia: Yes - CARDIOVASCULAR Hx Abnormal EKG: Yes Hx Chest Pain: Yes Hx CHF: Yes Hx Irregular Heartbeat: Yes (A-fib) - NEURO Hx Neuro Disorders: No - GI Hx GI Disorders: No - Hx Genitourinary Disorders: No - ENDOCRINE Hx Endocrine Disorders: Yes Hx Thyroid Disease: Yes - MUSCULOSKELETAL Hx Musculoskeletal Disorders: Yes Comment:: increased weakness and decreased mobility - PSYCH Hx Psych Problems: Yes Hx Anxiety: Yes Comment:: restless at night - HEMATOLOGY/ONCOLOGY Hx Hematology/Oncology Disorders: No Family Medical History Any Significant Family History?: No Family Hx Comment (NOT TO BE USED IN PLACE OF ITEMS BELOW): Pt not sure Physical Exam - General General Appearance: Alert, Oriented x3, Cooperative, No acute distress - Head Head exam: Atraumatic, Normocephalic, Normal inspection - Eye Eye exam: Normal appearance, PERRL - ENT Throat exam: Normal inspection. negative: Tonsillar erythema, Tonsillar exudate - Neck Neck exam: Normal inspection, Full ROM. negative: Tenderness - Respiratory Respiratory exam: Decreased breath sounds (R lower 2/3.). negative: Normal lung sounds bilaterally - Cardiovascular Cardiovascular Exam: Irregular rhythm - GI/Abdominal GI/Abdominal exam: Soft, Normal bowel sounds. negative: Tenderness - Extremities Extremities exam: Normal inspection, Full ROM, Normal capillary refill. negative: Tenderness - Neurological Neurological exam: Alert. negative: Motor sensory deficit Course Vital Signs 08/18/18 12:23 Temperature 97.6 F Pulse Rate 81 Respiratory 18 Rate Blood Pressure 101/59 Pulse Ox 93 L - Reevaluation(s) Reevaluation #1: The patient is doing better at this time on oxygen. I did discuss the need for diuresis and a thoracentesis but the patient will need to be off the Plavix and Eliquis for the appropriate amount of time before it can get done. I did discuss the need for admission overnight here and the patient does agree. I then did discuss the case with Lisa and she does agree to the plan to admit. 08/18/18 14:03 Medical Decision Making - Data Complexity MDM Data: Labs Ordered and/or Reviewed, X-Ray Ordered and/or Reviewed, EKG Ordered and/or Reviewed - Lab Data Result diagrams: 08/18/18 12:25 08/18/18 12:25 - EKG Data -: EKG Interpreted by Me (Vent paced at 70.) - Radiology Data Radiology results: Report reviewed (CXR: Large R sided effusion.) Disposition Disposition: Admit Clinical Impression: Dyspnea Qualifiers: Dyspnea type: unspecified Qualified Code(s): R06.00 - Dyspnea, unspecified CHF (congestive heart failure) Qualifiers: Heart failure type: unspecified Heart failure chronicity: unspecified Qualified Code(s): I50.9 - Heart failure, unspecified Disposition: Still a Patient at [facility] Decision to Admit: Admit from ER Decision to Admit Date: 08/18/18 Decision to Admit Time: 14:05 Accepting Physician: Amy Andrew Discussed w/Accepting Physician: 14:05 Condition: (2) Stable Forms: Patient Portal Access Time of Disposition: 14:05 Quality - Quality Measures Quality Measures: N/A - Blood Pressure Screening View Details: Yes Does Patient Have Any of the Following: No Blood Pressure Classification: Normal BP Reading Systolic Measurement: 101 Diastolic Measurement: 59 Screening for High Blood Pressure: < Normal BP, F/U Not Required > [[id number]]
[2018-08-18 12:49] LABS: BASO % 0.2 % (0-6); EOS % 0.5 % (0-6); HEMATOCRIT 35.1 % (42.0-52.0); HEMOGLOBIN 10.4 gm/dl (14.0-18.0); LYMPH % 7.3 % (16-45); MEAN CELL VOLUME 100.6 fl (81-97); MEAN CORPUSCULAR HEMOGLOBIN 29.7 pg (27-33); MEAN CORPUSCULAR HGB CONC 29.6 g/dl (32-36); MEAN PLATELET VOLUME 9.9 fl (7.4-10.4); PLATELET COUNT 293 K/uL (130-400); RED BLOOD COUNT 3.49 M/uL (4.40-5.70); RED CELL DISTRIBUTION WIDTH 16.4 % (11.5-14.5); WHITE BLOOD COUNT W/O DIFF 9.8 K/uL (4.2-12.2)
[2018-08-18 12:59] LABS: INR 1.4; PARTIAL THROMBOPLASTIN TIME 33.8 SECONDS (24.5-39.1); PROTHROMBIN TIME (PATIENT) 14.3 SECONDS (9.5-12.1)
[2018-08-18 13:09] LABS: CREATININE 1.9 mg/dL (0.7-1.2)
[2018-08-18] MEDS ORDERED: FUROSEMIDE IV 40MG/4ML VIAL IVP ONE (13:23)
[2018-08-18] MEDS ORDERED: ACETAMINOPHEN 325 MG TAB PO PRN (15:44)
[2018-08-18] MEDS: PANTOPRAZOLE SODIUM IV 40 MG VIAL IVP SCH (17:39)
[2018-08-18] MEDS: FUROSEMIDE IV 40MG/4ML VIAL IVP SCH (17:39)
[2018-08-18] MEDS: METOPROLOL TART 50 MG TABLET PO SCH (21:31)
[2018-08-18] MEDS: MELATONIN 5 MG TABLET PO SCH (21:31)
[2018-08-18] MEDS: OLANZAPINE 5MG TABLET PO SCH (21:31)
[2018-08-18] MEDS: DOCUSATE SODIUM 100 MG CAPSULE PO SCH (21:31)
[2018-08-19] MEDS: LEVOTHYROXINE SOD 112 MCG TAB PO SCH (06:38)
[2018-08-19] MEDS: BENZONATATE 100 MG CAPSULE PO PRN ×2 (06:38→20:30)
[2018-08-19 06:39] LABS: BASO % 0.3 % (0-6); EOS % 1.3 % (0-6); GRAN % 73.8 % (47-80); HEMOGLOBIN 9.8 gm/dl (14.0-18.0); MEAN CORPUSCULAR HGB CONC 29.7 g/dl (32-36); MEAN PLATELET VOLUME 10.1 fl (7.4-10.4); MONO % 14.6 % (0-9); PLATELET COUNT 241 K/uL (130-400); RED CELL DISTRIBUTION WIDTH 16.1 % (11.5-14.5)
[2018-08-19 06:44] LABS: MEAN CORPUSCULAR HEMOGLOBIN 29.6 pg (27-33)
[2018-08-19 06:50] LABS: CREATININE 1.6 mg/dL (0.7-1.2)
--- NOTE | 2018-08-19 07:20 | RADIOLOGY REPORT ---
EXAM: CHEST, TWO VIEWS HISTORY: WEAKNESS. DIFFICULTY IN BREATHING AND COUGH. TECHNIQUE: Upright PA and lateral views of the chest were obtained. Comparison: Two view chest radiographic examination dated 08/04/18. FINDINGS: A dual lead transvenous cardiac stimulator remains in place via the left subclavian approach with lead tips in the right atrium and right ventricle respectively. There is opacification of the lower half of the right hemithorax with costophrenic angle blunting consistent with pleural effusion and underlying air space disease. This pattern is stable. There is persistent lateral and apical pleural stripe thickening. Mild left costophrenic angle blunting persists consistent with small pleural effusion. Mild left apical pleural and parenchymal scarring. No pulmonary venous hypertension. IMPRESSION: 1. GROSSLY STABLE RADIOGRAPHIC APPEARANCE OF THE CHEST SINCE 08/04/18. 2. MODERATE TO LARGE RIGHT PLEURAL EFFUSION AND SMALL LEFT PLEURAL EFFUSION REDEMONSTRATED. 3. UNDERLYING RIGHT BASILAR AIR SPACE DISEASE IS AGAIN SUSPECTED. 4. RIGHT APICAL AND LATERAL PLEURAL STRIPE THICKENING PERSISTS CONSISTENT WITH FLUID OR SCARRING. 5. THE SUBTLE OPACITY AT THE MID LEFT HEMITHORAX LEVEL ON THE PRIOR EXAMINATION APPEARS LESS PRONOUNCED AND MAY JUST RELATED TO SUPERIMPOSITION OF NORMAL SHADOWS. JOB NUMBER: [id number] [facility]
[2018-08-19] MEDS: ALBUTEROL SULFATE (0.083%) 2.5 MG/3 ML NEB INH PRN ×2 (08:30→13:23)
[2018-08-19] MEDS: FUROSEMIDE IV 40MG/4ML VIAL IVP SCH ×2 (09:58→16:15)
[2018-08-19] MEDS: DOCUSATE SODIUM 100 MG CAPSULE PO SCH ×2 (09:58→21:39)
[2018-08-19] MEDS: ATORVASTATIN 20 MG TABLET PO SCH (09:58)
[2018-08-19] MEDS: METOPROLOL TART 50 MG TABLET PO SCH ×2 (09:58→21:40)
[2018-08-19] MEDS: PANTOPRAZOLE SODIUM IV 40 MG VIAL IVP SCH (09:59)
[2018-08-19] MEDS ORDERED: Non-Formulary MISC (Omeprazole [Omeprazole] 40 MG) PO SCH (10:00)
[2018-08-19] MEDS ORDERED: MAGNESIUM HYDROXIDE 30 ML UDC PO ONE (16:14)
--- NOTE | 2018-08-19 16:22 | History & Physical ---
History of Present Illness - Date of Service Date of Service for History & Physical: 08/19/18 - History of Present Illness Admitting Diagnosis: 1. Acute CHF with Dyspnea. History of Present Illness: Mr. Bowen presented to the ED on 08/18/18 for c/o weakness over the last 2 years with NINO. The symptoms seem to be getting worse. He was here in the ER 4 days ago and had a large R sided pleural effusion. He was instructed to go to [facility] for plural centesis which he has had there in the past if he gets worse but he decided to come here. 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 The patient denies any CP, fever, or chills, but he has had a cough. In the ED, his BP was 101/59, HR 81, RR 18, 93% on room air T 97.6F. He was placed on 2L and reported improved breathing. EKG demonstrated vent paced, rate 70. Labs revealed BNP 14,508, troponin 0.035, Hgb Pt. was informed that he needs diuresis and thoracentesis, but Dr. Oakley was told by admitting [facility] physician that pt would need to be off of eliquis for 2 days and plavix for 5 days. Plan to admit for observation for diuresis. 08/19/18: Pt. is sitting up in bed this morning, he verbalizes that he is irritated, frustrated with work of breathing. RR 16, 98% on 2L, started albuterol nebs q2h. Wt. loss of 5 pounds since admission weight. Plan to continue 40mg lasix IV, will continue to monitor. PCP: Dr. Lozano Travel Screening - Travel/Exposure Within Last 30 Days Have you traveled within the last 30 days?: No - Travel/Exposure Within Last Year Have you traveled outside the [place] in the last year?: No - Additonal Travel Details Have you been exposed to anyone with a communicable illness?: No - Travel Symptoms Symptom Screening: Fatigue Review of Systems Constitutional: Denies: Chills, Fever, Malaise Eyes: Denies: Eye discharge ENT: Denies: Congestion Respiratory: Reports: Dyspnea. Denies: Cough Cardiovascular: Reports: Dyspnea on exertion. Denies: Arrhythmia, Chest pain Endocrine: Reports: Fatigue Gastrointestinal: Denies: Nausea Genitourinary: Denies: Dysuria Musculoskeletal: Denies: Arthralgia Skin: Denies: Bruising Past Medical History - SOCIAL HISTORY Smoking Status: Former smoker - RESPIRATORY Hx Respiratory Disorders: Yes Hx Bronchitis: Yes Hx Dyspnea: Yes Hx Pneumonia: Yes - CARDIOVASCULAR Hx Abnormal EKG: Yes Hx Chest Pain: Yes Hx CHF: Yes Hx Irregular Heartbeat: Yes (A-fib) - NEURO Hx Neuro Disorders: No - GI Hx GI Disorders: No - Hx Genitourinary Disorders: No - ENDOCRINE Hx Endocrine Disorders: Yes Hx Thyroid Disease: Yes - MUSCULOSKELETAL Hx Musculoskeletal Disorders: Yes Comment:: increased weakness and decreased mobility - PSYCH Hx Psych Problems: Yes Hx Anxiety: Yes Comment:: restless at night - HEMATOLOGY/ONCOLOGY Hx Hematology/Oncology Disorders: No Family Medical History Any Significant Family History?: No Family Hx Comment (NOT TO BE USED IN PLACE OF ITEMS BELOW): Pt not sure H&P Meds/Allergies - Allergies Allergies: Allergies Allergy/AdvReac Type Severity Reaction Status Date / Time No Known Drug Allergies Allergy Verified 08/14/18 12:07 - Home Medications Home Medications Medication Instructions Recorded Confirmed Last Taken Aspirin 81 mg PO DAILY 08/18/18 08/18/18 Unknown Diltiazem HCl [Diltiazem ER] 120 mg PO DAILY 08/18/18 08/18/18 Unknown Hydrocodone/Acetaminophen 1 - 2 each PO Q4H PRN 08/18/18 08/18/18 Unknown [Hydrocodone-Acetamin 5-325 mg] Lidocaine 1 gm TP TID PRN 08/18/18 08/18/18 Unknown Magnesium Hydroxide [Milk of 1,200 mg PO BID PRN 08/18/18 08/18/18 Unknown Magnesia] - Active Medications Active Medications: Current Medications Acetaminophen (Tylenol 325mg) 650 mg PO Q6H PRN PRN Reason: PAIN - MILD(1-4)/FEVER Albuterol Sulfate (Albuterol Sulfate) 2.5 mg INH RESP.Q4H.WA PRN PRN Reason: DIFFICULTY IN BREATHING Last Admin: 08/19/18 13:23 Dose: 2.5 mg Atorvastatin Calcium (Lipitor) 20 mg PO DAILY SEVERIANO Last Admin: 08/19/18 09:58 Dose: 20 mg Benzonatate (Tessalon) 100 mg PO TID PRN PRN Reason: COUGH Last Admin: 08/19/18 06:38 Dose: 100 mg Docusate Sodium (Colace) 100 mg PO BID [facility] Last Admin: 08/19/18 09:58 Dose: 100 mg Furosemide (Lasix Iv) 40 mg IVP BIDDIUR [facility] Last Admin: 08/19/18 09:58 Dose: 40 mg Levothyroxine Sodium (Synthroid) 112 mcg PO DAILYTHY [facility] Last Admin: 08/19/18 06:38 Dose: 112 mcg Melatonin (Melatonin) 2.5 mg PO QHS [facility] Last Admin: 08/18/18 21:31 Dose: 2.5 mg Metoprolol Tartrate (Lopressor) 50 mg PO BID [facility] Last Admin: 08/19/18 09:58 Dose: 50 mg Olanzapine (Zyprexa) 5 mg PO QHS [facility] Last Admin: 08/18/18 21:31 Dose: 5 mg Pantoprazole Sodium (Protonix Iv) 40 mg IVP DAILY [facility] Last Admin: 08/19/18 09:59 Dose: 40 mg Physical Exam - Vital Signs Vital Signs: Vital Signs - Last 24 Hrs Temp Pulse Pulse Pulse Resp BP BP 08/19/18 15:44 98.3 F 118/65 08/19/18 13:26 82 24 08/19/18 13:25 76 24 08/19/18 12:00 98.3 F 87 18 118/65 08/19/18 09:00 16 08/19/18 08:30 97.8 F 97 H 93 H 28 H 114/72 08/19/18 04:07 97.9 F 107 H 20 97/59 08/19/18 00:40 81 16 120/78 08/18/18 21:00 70 16 08/18/18 20:00 97.9 F 81 18 122/65 08/18/18 17:44 97.7 F 87 16 108/65 Pulse Ox 08/19/18 15:44 08/19/18 13:26 98 08/19/18 13:25 98 08/19/18 12:00 98 08/19/18 09:00 08/19/18 08:30 98 08/19/18 04:07 93 L 08/19/18 00:40 96 08/18/18 21:00 08/18/18 20:00 97 08/18/18 17:44 99 - General General Appearance: Alert, Oriented x3, Cooperative, No acute distress Limitations: No limitations - Head Head exam: Atraumatic, Normocephalic, Normal inspection - Eye Eye exam: Normal appearance, PERRL - ENT Throat exam: Normal inspection. negative: Tonsillar erythema, Tonsillar exudate - Neck Neck exam: Normal inspection, Full ROM. negative: Tenderness - Respiratory Respiratory exam: Decreased breath sounds (R lower 2/3.), Wheezes. negative: Normal lung sounds bilaterally - Cardiovascular Cardiovascular Exam: Irregular rhythm - GI/Abdominal GI/Abdominal exam: Soft, Normal bowel sounds. negative: Tenderness - Extremities Extremities exam: Normal inspection, Full ROM, Normal capillary refill. negative: Tenderness - Neurological Neurological exam: Alert. negative: Motor sensory deficit Results - Labs Result Diagrams: 08/19/18 06:22 08/19/18 06:22 Labs Last 24 Hours: Laboratory Results - last 24 hr 08/19/18 08/19/18 06:22 06:22 WBC 8.0 RBC 3.30 L Hgb 9.8 L Hct 33.0 L MCV 100.0 H MCH 29.6 MCHC 29.7 L RDW 16.1 H Plt Count 241 MPV 10.1 Gran % 73.8 Lymphocytes % 10.0 L Monocytes % 14.6 H Eosinophils % 1.3 Basophils % 0.3 Sodium 139 Potassium 3.7 Chloride 97 L Carbon Dioxide 29.0 Anion Gap 13.0 BUN 48 H Creatinine 1.6 H Estimated GFR 44 Random Glucose 86 Calcium 8.7 L - Imaging and Cardiology Chest x-ray Status: Report reviewed, Image reviewed (Mod to large R pleural effusion, small L pleural effusion, underlying basilar air space disease) VTE H&P Assessment - Risk for VTE Risk for VTE: Yes Risk Level: Low Risk Assessment Date: 08/19/18 Risk Assessment Time: 16:23 VTE Orders Placed or Will Be Placed: No VTE Reason for No Prophylaxis: Contraindicated (holding for procedure) Plan - Detailed Diagnosis and Plan (1) Pleural effusion Current Visit: No Status: Acute Base Code: J90 - PLEURAL EFFUSION, NOT ELSEWHERE CLASSIFIED Comment: 08/19/18: -Hx of Pleural Effusion, has had 1.5 L removed -Lasix 40mg IV x 2 doses received -Plan to change to Lasix 20mg PO BID -RR 16 and 98% on RA -Holding anticoagulants for planned pleurocentesis (outside location) (2) CHF (congestive heart failure) Current Visit: Yes Status: Acute Qualifiers: Heart failure type: unspecified Heart failure chronicity: unspecified Qualified Code(s): I50.9 - Heart failure, unspecified Base Code: I50.9 - HEART FAILURE, UNSPECIFIED Comment: 08/19/18: -CXR: Unable to r/o CHF -Pro-BNP: 14,000 on 08/18 -Weight loss of 5 lbs overnight -Lasix 40mg IV x 2 doses given -Potassium stable (3) DVT prophylaxis Current Visit: No Status: Acute Base Code: [id number] - Comment: 08/19/18 -holding anticoagulation for procedure (plavix needs to be stopped for 5 days) (4) Do not resuscitate Current Visit: Yes Status: Acute Base Code: Z66 - DO NOT RESUSCITATE Comment: 08/19/18: Pt. is a DNR
[2018-08-19] MEDS: OLANZAPINE 5MG TABLET PO SCH (21:39)
[2018-08-19] MEDS: MELATONIN 5 MG TABLET PO SCH (21:39)
[2018-08-20 06:50] LABS: BASO % 0.2 % (0-6); EOS % 2.3 % (0-6); GRAN % 75.2 % (47-80); HEMATOCRIT 32.4 % (42.0-52.0); HEMOGLOBIN 9.6 gm/dl (14.0-18.0); LYMPH % 10.1 % (16-45); MEAN CELL VOLUME 99.1 fl (81-97); MEAN CORPUSCULAR HGB CONC 29.6 g/dl (32-36); MEAN PLATELET VOLUME 9.9 fl (7.4-10.4); MONO % 12.2 % (0-9); PLATELET COUNT 248 K/uL (130-400); RED BLOOD COUNT 3.27 M/uL (4.40-5.70); RED CELL DISTRIBUTION WIDTH 15.9 % (11.5-14.5); WHITE BLOOD COUNT W/O DIFF 8.7 K/uL (4.2-12.2)
[2018-08-20] MEDS: BENZONATATE 100 MG CAPSULE PO PRN (06:56)
[2018-08-20] MEDS: LEVOTHYROXINE SOD 112 MCG TAB PO SCH (06:56)
[2018-08-20 06:57] LABS: MEAN CORPUSCULAR HEMOGLOBIN 29.3 pg (27-33)
[2018-08-20 07:03] LABS: CREATININE 1.6 mg/dL (0.7-1.2)
[2018-08-20 07:04] LABS: ALB/GLOB RATIO 0.8 (1.1-1.8); ALBUMIN 2.9 g/dL (4.0-5.0); BILIRUBIN,TOTAL 0.6 mg/dL (0.2-1.0); TOTAL PROTEIN 6.4 g/dL (6.6-8.7)
[2018-08-20] MEDS: ALBUTEROL SULFATE (0.083%) 2.5 MG/3 ML NEB INH PRN (09:34)
[2018-08-20] MEDS: OXYMETAZOLINE HCL 15 ML BTL NASAL PRN ×2 (10:26→16:20)
[2018-08-20] MEDS: ATORVASTATIN 20 MG TABLET PO SCH (10:31)
[2018-08-20] MEDS: METOPROLOL TART 50 MG TABLET PO SCH (10:31)
[2018-08-20] MEDS: DOCUSATE SODIUM 100 MG CAPSULE PO SCH (10:31)
[2018-08-20] MEDS: PANTOPRAZOLE SODIUM IV 40 MG VIAL IVP SCH (10:31)
[2018-08-20] MEDS: FUROSEMIDE 20 MG TABLET PO SCH ×2 (10:31→16:16)
[2018-08-20] MEDS ORDERED: MORPHINE SULFATE 4 MG/ML VIAL IVP PRN (13:54)
--- NOTE | 2018-08-20 14:17 | RADIOLOGY REPORT ---
EXAM: CHEST, TWO VIEWS HISTORY: SHORTNESS OF BREATH. RIGHT PLEURAL EFFUSION. TECHNIQUE: Upright PA and lateral views of the chest were obtained. Comparison: Two view chest radiographic examination dated 08/18/18. FINDINGS: A dual lead transvenous cardiac stimulator remains in place via the left subclavian approach with lead tips in the right atrium. and right ventricle respectively. There is again noted opacification of the lower half of the right hemithorax with costophrenic angle blunting consistent with pleural effusion and underlying air space disease. This remains stable. There is associated lateral and apical pleural stripe thickening on the right as well , stable. Minor left costophrenic angle blunting persists consistent with small basilar pleural effusion. No left lung consolidation seen. Mild left apical pleural and parenchymal scarring redemonstrated. The right heart border remains obscured. No pulmonary venous hypertension is seen. IMPRESSION: STABLE RADIOGRAPHIC APPEARANCE OF THE CHEST WITH MULTIPLE FINDINGS DETAILED ABOVE. JOB NUMBER: [id number] MTDD
--- NOTE | 2018-08-20 17:56 | Discharge Summary ---
Providers Discharge Summary Date: 08/20/18 Date of admission: 08/20/18 14:42 Expected Date of Discharge: 08/20/18 Attending physician: PAT DOWNS Primary care physician: JANET LOZANO M.D. Physical Exam - Vital Signs Vital Signs: Vital Signs - Last 24 Hrs Temp Pulse Pulse Resp BP Pulse Ox 08/20/18 14:00 97.9 F 90 20 119/74 96 08/20/18 09:35 71 18 99 08/20/18 09:00 97.7 F 98 H 26 H 133/86 08/20/18 06:00 97.7 F 90 20 97/64 96 08/20/18 00:00 97.7 F 90 20 124/83 97 08/19/18 20:00 98.2 F 98 H 20 116/68 98 - General General Appearance: Alert, Oriented x3, Cooperative, Mild distress Limitations: No limitations - Head Head exam: Atraumatic, Normocephalic, Normal inspection - Eye Eye exam: Normal appearance, PERRL - ENT Throat exam: Normal inspection. negative: Tonsillar erythema, Tonsillar exudate - Neck Neck exam: Normal inspection, Full ROM. negative: Tenderness - Respiratory Respiratory exam: Decreased breath sounds (R lower 2/3.), Wheezes. negative: Normal lung sounds bilaterally - Cardiovascular Cardiovascular Exam: Irregular rhythm - GI/Abdominal GI/Abdominal exam: Soft, Normal bowel sounds. negative: Tenderness - Extremities Extremities exam: Normal inspection, Full ROM, Normal capillary refill. negative: Tenderness - Neurological Neurological exam: Alert. negative: Motor sensory deficit Hospitalization - Hospitalization Admission Diagnosis: 1. Acute CHF with Dyspnea. - Problem List/Discharge Diagnosis (1) Pleural effusion Current Visit: No Status: Acute Base Code: J90 - PLEURAL EFFUSION, NOT ELSEWHERE CLASSIFIED Comment: 08/20/18: -Hx of Pleural Effusion, has had 1.6 L removed -Lasix 20mg BID -RR 26 and 96% on 1L NC -Holding anticoagulants for potential throacentesis (outside location) (2) CHF (congestive heart failure) Current Visit: Yes Status: Acute Discharge Diagnosis: Heart failure type: unspecified Heart failure chronicity: unspecified Qualified Code(s): I50.9 - Heart failure, unspecified Base Code: I50.9 - HEART FAILURE, UNSPECIFIED Comment: 4/19/19: -Pro-BNP: 14,000 on 08/18 -Weight loss of 8 lbs overnight -lasix 20mg bid -Potassium stable (3) DVT prophylaxis Current Visit: No Status: Acute Base Code: [id number] - Comment: 08/20/18 -holding anticoagulation for procedure (plavix needs to be stopped for 5 days) (4) Do not resuscitate Current Visit: Yes Status: Acute Base Code: Z66 - DO NOT RESUSCITATE Comment: 08/20/18: Pt. is a DNR - Disposition Transfer to [facility]- Dr. Spencer to accept - Hospitalization Course Disposition: Acute Care Hospital Transfer Hospital Course: Mr. Bowen presented to the ED on 08/18/18 for c/o weakness over the last 2 years with NINO. The symptoms seem to be getting worse. He was here in the ER 4 days ago and had a large R sided pleural effusion. He was instructed to go to [facility] for plural centesis which he has had there in the past if he gets worse but he decided to come here. 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 The patient denies any CP, fever, or chills, but he has had a cough. In the ED, his BP was 101/59, HR 81, RR 18, 93% on room air T 97.6F. He was placed on 2L and reported improved breathing. EKG demonstrated vent paced, rate 70. Labs revealed BNP 14,508, troponin 0.035, Hgb Pt. was informed that he needs diuresis and thoracentesis, but Dr. Oakley was told by admitting [facility] physician that pt would need to be off of eliquis for 2 days and plavix for 5 days. Plan to admit for observation for diuresis. 08/19/18: Pt. is sitting up in bed this morning, he verbalizes that he is irritated, frustrated with work of breathing. RR 16, 98% on 2L, started albuterol nebs q2h. Wt. loss of 5 pounds since admission weight. Plan to continue 40mg lasix IV, will continue to monitor. 08/20/18: Pt. is resting in bed, he reports no improvement in his cough and work of breathing. Sats 96% on 1L NC, continuing lasix 20mg bid. Repeat chest xray demonstrates no further resolution of large right pleural effusion and small left pleural effusion. Due to no improvement in bilateral pleural effusions with 2 days of diuresis and 8lb wt. loss- will transfer to higher level of acuity. Dr. Spencer at [facility] to accept transfer. PCP: Dr. Lozano Procedures: Imaging and X-Rays 08/18/18 12:31 CHEST 2 VIEWS [RAD] Stat 08/20/18 11:48 CHEST 2 VIEWS [RAD] Stat Cardiology Procedures 08/18/18 12:39 EKG NOW 08/18/18 15:44 Distribution System Operator .Continuous EKG QDX2@0600 Abnormal Labs: Abnormal Lab Results 08/18/18 08/18/18 08/18/18 Range/Units 12:25 12:25 12:25 RBC 3.49 L (4.40-5.70) M/uL Hgb 10.4 L (14.0-18.0) gm/dl Hct 35.1 L (42.0-52.0) % MCV 100.6 H (81-97) fl MCHC 29.6 L (32-36) g/dl RDW 16.4 H (11.5-14.5) % Lymphocytes % 7.3 L (16-45) % Monocytes % 12.0 H (0-9) % PT 14.3 H (9.5-12.1) SECONDS Potassium 4.8 H (3.4-4.5) mmol/L Chloride 95 L (98-107) mmol/L Carbon Dioxide (22-29) mmol/L Anion Gap 18.0 H (7-16) BUN 48 H (8-23) mg/dL Creatinine 1.9 H (0.7-1.2) mg/dL Random Glucose 129 H (74-109) mg/dL Calcium (8.8-10.2) mg/dL Alkaline Phosphatase (40-129) U/L Troponin T (0-0.010) ng/mL NT-Pro-B Natriuret Pep 22825.00 H (<450) pg/mL Total Protein (6.6-8.7) g/dL Albumin (4.0-5.0) g/dL Albumin/Globulin Ratio (1.1-1.8) 08/18/18 08/19/18 08/19/18 Range/Units 12:25 06:22 06:22 RBC 3.30 L (4.40-5.70) M/uL Hgb 9.8 L (14.0-18.0) gm/dl Hct 33.0 L (42.0-52.0) % MCV 100.0 H (81-97) fl MCHC 29.7 L (32-36) g/dl RDW 16.1 H (11.5-14.5) % Lymphocytes % 10.0 L (16-45) % Monocytes % 14.6 H (0-9) % PT (9.5-12.1) SECONDS Potassium (3.4-4.5) mmol/L Chloride 97 L (98-107) mmol/L Carbon Dioxide (22-29) mmol/L Anion Gap (7-16) BUN 48 H (8-23) mg/dL Creatinine 1.6 H (0.7-1.2) mg/dL Random Glucose (74-109) mg/dL Calcium 8.7 L (8.8-10.2) mg/dL Alkaline Phosphatase (40-129) U/L Troponin T 0.035 H (0-0.010) ng/mL NT-Pro-B Natriuret Pep (<450) pg/mL Total Protein (6.6-8.7) g/dL Albumin (4.0-5.0) g/dL Albumin/Globulin Ratio (1.1-1.8) 08/20/18 08/20/18 Range/Units 06:28 06:28 RBC 3.27 L (4.40-5.70) M/uL Hgb 9.6 L (14.0-18.0) gm/dl Hct 32.4 L (42.0-52.0) % MCV 99.1 H (81-97) fl MCHC 29.6 L (32-36) g/dl RDW 15.9 H (11.5-14.5) % Lymphocytes % 10.1 L (16-45) % Monocytes % 12.2 H (0-9) % PT (9.5-12.1) SECONDS Potassium 3.3 L (3.4-4.5) mmol/L Chloride 94 L (98-107) mmol/L Carbon Dioxide 32.0 H (22-29) mmol/L Anion Gap (7-16) BUN 42 H (8-23) mg/dL Creatinine 1.6 H (0.7-1.2) mg/dL Random Glucose (74-109) mg/dL Calcium 8.6 L (8.8-10.2) mg/dL Alkaline Phosphatase 137 H (40-129) U/L Troponin T (0-0.010) ng/mL NT-Pro-B Natriuret Pep (<450) pg/mL Total Protein 6.4 L (6.6-8.7) g/dL Albumin 2.9 L (4.0-5.0) g/dL Albumin/Globulin Ratio 0.8 L (1.1-1.8) Condition at Discharge: (3) Guarded Discharge Diagnosis: Bilateral pleural effusions, CHF VTE Discharge VTE Reason For No Overlap Therapy: Contraindicated Discharge Medications - Discharge Medications Home Medications: Ambulatory Orders Acetaminophen 650 mg PO Q6H PRN 06/09/18 [Last Taken Unknown] Levothyroxine Sodium 112 mcg PO DAILY 06/09/18 [Last Taken 08/14/18] Melatonin 3 mg PO QHS 06/09/18 [Last Taken 08/14/18] Metoprolol Tartrate 50 mg PO BID 06/09/18 [Last Taken 08/14/18] Nitroglycerin 0.4MG [Nitrostat 0.4MG] 0.4 mg SL Q5MIN PRN 06/09/18 [Last Taken 08/14/18] Olanzapine [Zyprexa] 5 mg PO QHS 06/09/18 [Last Taken 08/14/18] Atorvastatin Calcium [Lipitor] 20 mg PO DAILY 08/14/18 [Last Taken 08/14/18] Omeprazole 40 mg PO DAILYAC 08/14/18 [Last Taken 08/14/18] Diltiazem HCl [Diltiazem 24Hr ER] 120 mg PO DAILY 08/18/18 [Last Taken Unknown] Hydrocodone/Acetaminophen [Hydrocodone-Acetamin 5-325 mg] 1 - 2 each PO Q4H PRN 08/18/18 [Last Taken Unknown] Lidocaine 1 gm TP TID PRN 08/18/18 [Last Taken Unknown] Magnesium Hydroxide [Milk of Magnesia] 1,200 mg PO BID PRN 08/18/18 [Last Taken Unknown] Acetaminophen [Tylenol 325Mg] 650 mg PO Q6H PRN tablet 08/20/18 [Last Taken Unknown] Albuterol Sulfate 0.083% [Neb] [Albuterol Sulfate] 2.5 mg INH RESP.Q4H.WA PRN nebulization solution 08/20/18 [Last Taken Unknown] Benzonatate [Tessalon Perles] 100 mg PO TID PRN capsule 08/20/18 [Last Taken Unknown] Docusate Sodium [Colace] 100 mg PO BID cap 08/20/18 [Last Taken Unknown] Furosemide [Lasix] 20 mg PO BIDDIUR tablet 08/20/18 [Last Taken Unknown] Morphine Sulfate 2 mg IVP Q4H PRN vial 08/20/18 [Last Taken Unknown] Oxymetazoline HCl [Afrin] 15 ml NA Q12H PRN btl 08/20/18 [Last Taken Unknown] Discharge Plan - Discharge Instructions Activity at Discharge: As Per Physical Therapy Diet at Discharge: Other (fluid restriction) Quality Measures - Quality Measures Quality Measures: Atrial Fibrillation & Atrial Flutter: Chronic Anticoagulation Therapy, Advance Directives, Documentation of Current Medications in Medical Record, Elder Maltreatment Screen and Follow-Up Plan, Heart Failure, Screening for High Blood Pressure and F/U Documented - Current Medications Quality Measure: Measure #130: Documentation of Current Medications Documentation of Current Medications: <Current Medications Documented/Reviewed> [G8460] - Blood Pressure Screening Quality Measure: Screening for High Blood Pressure and Follow-Up Documented Does Patient Have Any of the Following: Active Dx of HTN Blood Pressure Classification: Normal BP Reading Systolic Measurement: 118 Diastolic Measurement: 65 Screening for High Blood Pressure: Patient Exclusion, Hx of HTN [G9744] - Atrial Fibrillation and Atrial Flutter Quality Measure: Atrial Fibrillation & Atrial Flutter: Chronic Anticoagulation Therapy Does Patient Have Any of the Following: No CHADS2 Risk Stratification: Age 75 or Greater, Heart Failure or Impaired LVSF Risk Stratification Summary: One or more high risk factors OR more than one moderate risk factor exists. [G8972] Anticoagulation Therapy: Not Prescribed for Medical Reason [K8968] Medical Reason for NOT Prescribing Anticoagulant: Other Medical Reason - Heart Failure (PAT/ARB Therapy) Quality Measure: Heart Failure Left Ventricular Systolic Function: LV Ejection Fraction less than 40% [3021F] PAT Inhibitor or ARB Therapy for LVSD: Not Prescribed for Medical Reason [4010F with 1P] Medical Reason for NOT Prescribing: Other Medical Reason - Heart Failure (Beta-antolin Therapy) Quality Measure: Heart Failure Left Ventricular Systolic Function: LV Ejection Fraction less than 40% [3021F] Beta-Antolin Therapy for LVEF < 40%: <Beta-Antolin Therapy Prescribed> [M3804] - Advance Directives Quality Measure: Measure #47: Care Plan Advance Directives Established: No Advance Directives Information Provided To Patient: Declined Advance Directives on File: Yes Living Will: No Power of Television Reporter: No Advance Care Planning: <Care Plan/Decision Maker Documented; Discussed & Documented> [4593F] - Elder Abuse Suspicion Index Screening: Elder Abuse Suspicion Index Screening Rely on people for bathing, dressing, shopping, banking, etc: Yes Prevented from getting food, clothes, medication, etc: No Made to feel shamed or threatened by someone: No Forced to sign papers or use money against will: No Feel afraid, touched in ways not wanted or hurt physically: No Poor eye contact, withdrawn, malnourished, cuts or bruises: No Screening Result: Negative result EASI Reference Information: Elham WU, Sharif C, Osvaldo D, Jose Juan David.Development and validation of a tool to assist physicians identification of elder abuse: The Elder Abuse Suspicion Index (EASI ). Journal of Elder Abuse and Neglect, 2008; 20 (3): 276-300. - Elder Maltreatment Screen Quality Measures: Elder Maltreatment Screen and Follow-Up Plan Elder Maltreatment Screen: <Negative, No Follow-Up Plan Required> [G5639]
== END 2018-08-20 19:06 | disposition short-term general hospital (02) | DRG 292 ==
LOC: ER 12:16 → MEDSURG 14:27 → OBSVTOIN 08-20 14:42
PROVIDERS: ADMIT Internal Medicine; ATTEND Internal Medicine
DX: I50.9 Heart failure, unspecified (principal); J90 Pleural effusion, not elsewhere classified; R06.02 Shortness of breath; E03.9 Hypothyroidism, unspecified; I48.91 Unspecified atrial fibrillation; Z79.01 Long term (current) use of anticoagulants; Z66 Do not resuscitate; Z95.0 Presence of cardiac pacemaker
CPT/HCPCS: 71046; 80048; 80053; 83880; 84484; 85025; 85610; 85730; 93005; 93010; 94640; 94760; 94761; 96374; 99220; 99239; 99285; C9113; J1940; J7613

== ENCOUNTER 2018-08-30 13:49 | Inpatient (IN) | payer MEDICARE, BC ==
[2018-08-30] MEDS ORDERED: HYDROCODONE/APAP 5/325MG TABLET PO PRN (20:15)
[2018-08-30] MEDS: MELATONIN 5 MG TABLET PO SCH (21:40)
[2018-08-30] MEDS: ATORVASTATIN 20 MG TABLET PO SCH (21:41)
[2018-08-30] MEDS: CEPHALEXIN 250 MG CAPSULE PO SCH (21:42)
[2018-08-30] MEDS: METOPROLOL TART 50 MG TABLET PO SCH (21:42)
[2018-08-30] MEDS: SODIUM CHLORIDE NASAL SPRAY SCH (21:42)
[2018-08-30] MEDS: OLANZAPINE 5MG TABLET PO SCH (21:42)
[2018-08-30] MEDS ORDERED: ACETAMINOPHEN 325 MG TAB PO PRN (21:58)
[2018-08-30] MEDS ORDERED: [UNRECOGNIZED DRUG - OTHER] TOP SCH (22:00)
[2018-08-30] MEDS ORDERED: PETROLATUM TOP SCH (22:00)
[2018-08-30] MEDS: ACETAMINOPHEN 325 MG TAB PO PRN (22:05)
[2018-08-31] MEDS: SODIUM CHLORIDE NASAL SPRAY SCH ×8 (00:01→21:35)
[2018-08-31] MEDS ORDERED: 0.9 % SODIUM CHLORIDE 1,000 ML BAG IV ONE (03:00)
[2018-08-31] MEDS ORDERED: BENZONATATE 100 MG CAPSULE PO PRN (05:49)
[2018-08-31] MEDS ORDERED: NITROGLYCERIN 0.4MG SL TABLET #25 BTL SL PRN (05:51)
[2018-08-31] MEDS: PANTOPRAZOLE SODIUM 40 MG TABLET PO SCH (06:58)
[2018-08-31] MEDS: CEPHALEXIN 250 MG CAPSULE PO SCH ×3 (06:58→22:06)
[2018-08-31 07:39] LABS: HEMATOCRIT 31.6 % (42.0-52.0); HEMOGLOBIN 9.5 gm/dl (14.0-18.0); MEAN CELL VOLUME 98.8 fl (81-97); MEAN CORPUSCULAR HGB CONC 30.1 g/dl (32-36); MEAN PLATELET VOLUME 9.6 fl (7.4-10.4); PLATELET COUNT 309 K/uL (130-400); RED CELL DISTRIBUTION WIDTH 15.9 % (11.5-14.5); WHITE BLOOD COUNT W/O DIFF 13.4 K/uL (4.2-12.2)
[2018-08-31 07:40] LABS: MEAN CORPUSCULAR HEMOGLOBIN 29.6 pg (27-33)
[2018-08-31 07:55] LABS: CREATININE 1.6 mg/dL (0.7-1.2)
[2018-08-31] MEDS: LEVOTHYROXINE SOD 112 MCG TAB PO SCH (08:28)
[2018-08-31] MEDS: POTASSIUM CHLORIDE 10 MEQ TAB PO SCH (10:11)
[2018-08-31] MEDS: METOPROLOL TART 50 MG TABLET PO SCH ×2 (10:11→22:01)
[2018-08-31] MEDS: PETROLATUM TOP SCH ×2 (10:12→22:01)
[2018-08-31] MEDS: [UNRECOGNIZED DRUG - OTHER] TOP SCH ×2 (10:12→22:01)
[2018-08-31] MEDS: DILTIAZEM HCL 120 MG ER CAPSULE PO SCH (10:12)
[2018-08-31] MEDS: FUROSEMIDE 20 MG TABLET PO SCH ×2 (10:12→17:08)
--- NOTE | 2018-08-31 12:44 | Rehab Evaluation ---
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 PMH - Respiratory Hx Respiratory Disorders Yes Hx Bronchitis Yes Hx Dyspnea Yes Hx Pneumonia Yes Comment: CHF; PLEURAL EFFUSIONS PMH - Cardiovascular Hx Cardiovascular Disorders Yes Hx Abnormal EKG Yes Hx Chest Pain Yes Hx Congestive Heart Failure Yes Hx Irregular Heartbeat Yes: A-fib Hx Pacemaker/Defibrillator Yes: PACEMAKER PMH - Neuro Hx Neurological Disorders No PMH - GI Hx Gastrointestinal Disorders Yes Hx Gastroesophageal Reflux Yes PMH - Hx Genitourinary Disorders No PMH - Endocrine Hx Endocrine Disorders Yes Hx Diabetes No Hx Thyroid Disease Yes PMH - Musculoskeletal Hx Musculoskeletal Disorders Yes Comment: increased weakness and decreased mobility PMH - Psych Hx Psychiatric Problems Yes Hx Anxiety Yes Hx Depression Yes Comment: restless at night PMH - Hematology/Oncology Hx Hematology/Oncology No Disorders Comment: RECENT NOSE BLEEDS Premorbid Status: Detail (Pt lives in [facility] (assisted living). He has a walk in shower with a seat and grab bar and a standard height toilet with a grab bar. He has assist for self cares if needed but he would like to be Ind. Staff are responsible for all home mgmt, meal prep and laundry. He does ambulate to the dining room and uses a 4 wheeled walker.) Social History: Detail (Supportive daughter was present during evaluation.) Precautions: [place], Fall - Time With Patient Total Time Spent With Patient (Min): 30 Treatment Procedures: Detail (OT eval low complexity) Subjective Information - Subjective Information Per Patient, Other (Per daughter) Objective Data - Pain Pain Present: No - Mental Status Patient Orientation: Oriented x3 - Visual Perception Appears within normal limits for therapeutic activities (Pt does not wear glasses) - ROM Not within normal limits (Vaughn UE AROM WNL with exception of right shoulder which had a rotator cuff injury many years ago.) - Strength/Tone Not within normal limits (Vaughn UE strength 4/5 with exception of right shoulder which was 3-/5 due to premorbid rotator cuff injury.) - Coordination Appears within normal limits for therapeutic activities - Bed Mobility Independent (Ind with supine to sit) - Transfers Independent (Ind with sit to stand from EOB) - Balance Balance Sitting: Good Balance Standing: Fair - Sensation Deficit (Pt reports right hand IF and LF numbness which has been longstanding even after carpal tunnel surgery.) - Gait Detail (Pt ambulated several feet with 2 wheeled walker and CG assist.) - ADL's/IADL's Detail (Pt able to complete doffing of hospital pants and shirt and donning of PJ bottoms and shirt Indly although he was very short of breath and required rest breaks.) Therapy Assessment - Therapy Assessment Detail (Pt presents with significant shortness of breath and decreased endurance needed for safe and Ind ADLs and mobility.) Problem List - Problem List Occupational Therapy Problem List: Detail (1. Decreased activity tolerance needed for safe and Ind self cares. 2. Decreased Ind with total body showering.) Goals - Goals Occupational Therapy Goals: 1. Pt will demonstrate improved activity tolerance to allow safe and Ind self cares. 2. Pt will be safe and Ind with total body showering in sitting and standing. 3. Pt will be safe and Ind with functional mobility needed for ADLs. Prognosis - Prognosis Good Plan - Plan Occupational Therapy Plan: OT 2-4 days per week to address goals and problem list as above.
--- NOTE | 2018-08-31 14:28 | Rehab Evaluation ---
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 PMH - Respiratory Hx Respiratory Disorders Yes Hx Bronchitis Yes Hx Dyspnea Yes Hx Pneumonia Yes Comment: CHF; PLEURAL EFFUSIONS PMH - Cardiovascular Hx Cardiovascular Disorders Yes Hx Abnormal EKG Yes Hx Chest Pain Yes Hx Congestive Heart Failure Yes Hx Irregular Heartbeat Yes: A-fib Hx Pacemaker/Defibrillator Yes: PACEMAKER PMH - Neuro Hx Neurological Disorders No PMH - GI Hx Gastrointestinal Disorders Yes Hx Gastroesophageal Reflux Yes PMH - Hx Genitourinary Disorders No PMH - Endocrine Hx Endocrine Disorders Yes Hx Diabetes No Hx Thyroid Disease Yes PMH - Musculoskeletal Hx Musculoskeletal Disorders Yes Comment: increased weakness and decreased mobility PMH - Psych Hx Psychiatric Problems Yes Hx Anxiety Yes Hx Depression Yes Comment: restless at night PMH - Hematology/Oncology Hx Hematology/Oncology No Disorders Comment: RECENT NOSE BLEEDS Premorbid Status: Detail (Pt lives in [facility] (assisted living). He has a walk in shower with a seat and grab bar and a standard height toilet with a grab bar. He has assist for self cares if needed but he would like to be Ind. Staff are responsible for all home mgmt, meal prep and laundry. He does ambulate to the dining room and uses a 4 wheeled walker.) Social History: Detail (Supportive daughter was present during evaluation.) Precautions: [place], Fall - Time With Patient Total Time Spent With Patient (Min): 30 Treatment Procedures: Detail (Initial Evaluation) Subjective Information - Subjective Information Per Patient (The patient had no complaints of pain. The patient complained of fatigue with activity.) Objective Data - Mental Status Patient Orientation: Oriented x3 - Visual Perception Appears within normal limits for therapeutic activities - ROM Within normal limits (LE AROM is WNL.) - Strength/Tone Not within normal limits ( Bilateral LE strength: hip flexors 4-/5, hip abductors/adductors 4/5, knee extensors, knee flexors 4+/5, ankle musculature 4 + to 5/5 (seated)) - Bed Mobility Independent (The patient was independent with supine to and from sit transfer.) - Transfers Independent (The patient was independent/supervision with sit to and from stand transfer.) - Balance Balance Sitting: Good Balance Standing: Fair (The patient's balance using the Tinetti Assessment Tool is 18/28 which is in the high risk for falling category.) - Gait Detail (The patient ambulated with front wheeled walker 40 feet x 1 with supervision for safety. The patient was short of breath with ambulation.) Therapy Assessment - Therapy Assessment Detail (The patient exhibits decreased bilateral hip strength and standing balance. The patient exhibits shortness of breath with activity. Feel the patient will benefit from subacute Rehab to return to previous functional level. ) Problem List - Problem List Physical Therapy Problem List: Detail (1) Decreased hip strength bilaterally 2) Decreased standing balance 3) Decreased ability to complete prolonged physical activity.) Occupational Therapy Problem List: Detail (1. Decreased activity tolerance needed for safe and Ind self cares. 2. Decreased Ind with total body showering.) Goals - Goals Physical Therapy Goals: 1. The patient's balance will improve to moderate risk for falling category using Tinetti Assessment Tool. 2) The patient will ambulate with appropriate assistive device community distance as required in AFC. 3) Increase LE strength 1/3 muschle grade to increase stability of gait. 4) The patient will tolerate 30 minutes of physical activity with one rest period. Occupational Therapy Goals: 1. Pt will demonstrate improved activity tolerance to allow safe and Ind self cares. 2. Pt will be safe and Ind with total body showering in sitting and standing. 3. Pt will be safe and Ind with functional mobility needed for ADLs. Plan - Plan Physical Therapy Plan: PT 1-2 times a day for gait training, balance and LE strengthening and muscular endurance exercises. Occupational Therapy Plan: OT 2-4 days per week to address goals and problem list as above.
--- NOTE | 2018-08-31 15:55 | Occupational Therapy Tx Note ---
Occupational Therapy Tx Note - Treatment Note Tolerated: Good Total Time Spent With Patient: 18 (1 TE) Occupational Therapy Treatment Note: Detail (OT educ. Pt on diaphragmatic breathing with handout to increase cardiopulmonary capacity during functional ADLS, Pt verbalizes understanding with fair follow thru post educ. UB therapeutic exercises with yellow theraband and handout given to increase activity tolerance, cardiopulmonary capacity, and UB strength for functional TFs ; decreased strength and ROM R shoulder noted d/t rotator cuff tears per Pt. 5 reps per exercise this session. CGA SPT EOB > bedside chair.) Occupational Therapy Problem List: Detail (1. Decreased activity tolerance needed for safe and Ind self cares. 2. Decreased Ind with total body showering.) Occupational Therapy Goals: 1. Pt will demonstrate improved activity tolerance to allow safe and Ind self cares. 2. Pt will be safe and Ind with total body showering in sitting and standing. 3. Pt will be safe and Ind with functional mobility needed for ADLs. Prognosis: Good Occupational Therapy Plan: OT 2-4 days per week to address goals and problem list as above.
--- NOTE | 2018-08-31 20:01 | History & Physical ---
History of Present Illness - Date Date of Service for History & Physical: 08/31/18 - History of Present Illness Admitting Diagnosis: deconditioning due to heart failure. left epistaxis requiring cautery of the left sphenopalatine artery for persistent posterior epistaxis. CAD. CHF. SSS with pacemaker History of Present Illness: patient had a large pleural effusion on the right side from CHF and was transferred to [facility] for treatment and he had right sided thorancentesis and than discharged home and he developed a left severe nose bleed that required cautery of the left sphenopalpatine artery. He now is very weak and transferred to the swing bed at [facility] to get stronger. 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 Assistant Required: No Level of Education: College Preferred Method of Learning: Seeing Comprehension Ability: No Impairment Able to Read: Yes Able to Write: Yes Select best description of speech pattern: Clear Speech Ability to express ideas and wants: Understood Understanding verbal content: Understands - Psychosocial Well-Being Usual Living Arrangement: Alone - Physical Functioning Activity Level: Up with assist x1 Turning: Self ad hope ROM Ability: Moves all extremities Assistive Devices: 2 Wheel Walker Activity Level Comment: pt's own walker brought to [facility] per daughter today. walker tagged with pt id Ambulation Ability: Needs Assist Bed Mobility: Independent Transfer Ability: Needs Assist Bathing Ability: Needs Assist Personal Hygiene: Independent Dressing Ability: Independent Eating (Feeding) Ability: Independent Toileting Ability: Needs Assist Administer Own Medication: Needs Assist - Continence Bowel Pattern: Constipated Bladder Pattern: Normal - Dental Status Unable to examine: No Broken or loosely fitting full or partial dentures: No No natural teeth or tooth fragment(s) (edentulous): No Abnormal mouth tissue (ulcers, masses, oral lesions, etc.): No Obvious or likely cavity or broken natural teeth: No Inflamed or bleeding gums or loose natural teeth: No Mouth/facial pain, discomfort or difficulty chewing: No - Nutrition Screening Poor oral intake > 1 week: Yes Unplanned weight loss in specified time frame: No Nutrition Support via tube feedings or parenteral nutrition: No Pressure Ulcer: No Significantly underweight define as BMI <18.5 kg/m2: No Albumin <2.5mg/dL: No Persistent nausea/vomiting/diarrhea >3 days: No Difficulty chewing/swallowing/mouth sores: No Admitting Diagnosis: Yes Nutrition Risk Score: High Risk Review of Systems Reviewed: No additional complaints except as noted below Constitutional: Reports: As per HPI. Denies: Chills, Fever, Malaise, Night sweats, Weakness, Weight change Eyes: Reports: As per HPI. Denies: Eye discharge, Eye pain, Photophobia, Vision change ENT: Reports: As per HPI. Denies: Congestion, Dental pain, Ear pain, Epistaxis , Hearing loss, Throat pain Respiratory: Reports: As per HPI. Denies: Cough, Dyspnea, Hemoptysis, Stridor, Wheezes Cardiovascular: Reports: As per HPI. Denies: Arrhythmia, Chest pain, Dyspnea on exertion, Edema, Murmurs, Orthopnea, Palpitations, Paroxysmal nocturnal dyspnea, Rheumatic Fever, Syncope Endocrine: Reports: As per HPI. Denies: Fatigue, Heat or cold intolerance, Polydipsia, Polyuria Gastrointestinal: Reports: As per HPI. Denies: Abdominal pain, Constipation, Diarrhea, Hematemesis, Hematochezia, Melena, Nausea, Vomiting Genitourinary: Reports: As per HPI. Denies: Dysuria, Frequency, Hematuria, Incontinence, Retention, Testicular pain, Testicular mass, Urgency Musculoskeletal: Reports: As per HPI. Denies: Arthralgia, Back pain, Gout, Joint swelling, Myalgia, Neck pain Skin: Reports: As per HPI. Denies: Bruising, Change in color, Change in hair/ nails, Lesions, Pruritus, Rash Neurological: Reports: As per HPI. Denies: Abnormal gait, Confusion, Headache, Numbness, Paresthesias, Seizure, Tingling, Tremors, Vertigo, Weakness Psychiatric: Reports: As per HPI. Denies: Anxiety, Auditory hallucinations, Depression, Homicidal thoughts, Suicidal thoughts, Visual hallucinations Hematological/Lymphatic: Reports: As per HPI. Denies: Anemia, Blood Clots, Easy bleeding, Easy bruising, Swollen glands Past Medical History - SOCIAL HISTORY Smoking Status: Former smoker - SURGICAL HISTORY Past Surgical History: cervical neck. pacemaker. right knee. denies rotator cuff - RESPIRATORY Hx Respiratory Disorders: Yes Hx Bronchitis: Yes Hx Dyspnea: Yes Hx Pneumonia: Yes Comment:: CHF; PLEURAL EFFUSIONS - CARDIOVASCULAR Hx Cardio Disorders: Yes Hx Abnormal EKG: Yes Hx Chest Pain: Yes Hx CHF: Yes Hx Irregular Heartbeat: Yes (A-fib) Hx Pacemaker/Defib: Yes (PACEMAKER) - NEURO Hx Neuro Disorders: No - GI Hx GI Disorders: Yes Hx Reflux: Yes - Hx Genitourinary Disorders: No - ENDOCRINE Hx Endocrine Disorders: Yes Hx Diabetes: No Hx Thyroid Disease: Yes - MUSCULOSKELETAL Hx Musculoskeletal Disorders: Yes Comment:: increased weakness and decreased mobility - PSYCH Hx Psych Problems: Yes Hx Anxiety: Yes Hx Depression: Yes Comment:: restless at night - HEMATOLOGY/ONCOLOGY Hx Hematology/Oncology Disorders: No Comment:: RECENT NOSE BLEEDS Family Medical History Any Significant Family History?: No Family Hx Comment (NOT TO BE USED IN PLACE OF ITEMS BELOW): Pt not sure H&P Meds/Allergies - Allergies Allergies: Allergies Allergy/AdvReac Type Severity Reaction Status Date / Time No Known Drug Allergies Allergy Verified 08/14/18 12:07 - Home Medications Previous Rx's Medication Instructions Recorded Acetaminophen [Tylenol 325Mg] 650 mg PO Q6H PRN tablet 08/20/18 Albuterol Sulfate 0.083% [Neb] 2.5 mg INH RESP.Q4H.WA PRN 08/20/18 [Albuterol Sulfate] nebulization solution Benzonatate [Tessalon Perles] 100 mg PO TID PRN capsule 08/20/18 Docusate Sodium [Colace] 100 mg PO BID cap 08/20/18 Furosemide [Lasix] 20 mg PO BIDDIUR tablet 08/20/18 Morphine Sulfate 2 mg IVP Q4H PRN vial 08/20/18 Oxymetazoline HCl [Afrin] 15 ml NA Q12H PRN btl 08/20/18 - Active Medications Active Medications: Current Medications Acetaminophen (Tylenol 325mg) 650 mg PO Q6H PRN PRN Reason: PAIN - MILD (1-4) Last Admin: 08/30/18 22:05 Dose: 650 mg Hydrocodone Bitart/Acetaminophen (Mathews 5mg/325mg) 1 each PO Q4H PRN PRN Reason: PAIN - MILD TO MODERATE (1-7) Stop: 09/02/18 20:15 Albuterol Sulfate (Albuterol Sulfate) 2.5 mg INH RESP.Q4H PRN PRN Reason: DIFFICULTY IN BREATHING Aspirin (Aspirin Chewable) 81 mg PO DAILY SE[facility] Atorvastatin Calcium (Lipitor) 20 mg PO QHS [facility] Last Admin: 08/30/18 21:41 Dose: 20 mg Benzonatate (Tessalon) 100 mg PO TID PRN PRN Reason: COUGH Cephalexin HCl (Keflex) 250 mg PO Q8H [facility] Stop: 09/03/18 14:01 Last Admin: 08/31/18 14:24 Dose: 250 mg Clopidogrel Bisulfate (Plavix) 75 mg PO DAILY [facility] Diltiazem HCl (Cardizem Cd) 120 mg PO DAILY [facility] Last Admin: 08/31/18 10:12 Dose: 120 mg Furosemide (Lasix) 20 mg PO BIDDIUR [facility] Last Admin: 08/31/18 17:08 Dose: 20 mg Levothyroxine Sodium (Synthroid) 112 mcg PO DAILYTHY [facility] Last Admin: 08/31/18 08:28 Dose: 112 mcg Magnesium Hydroxide (Milk Of Magnesium) 30 ml PO DAILY PRN PRN Reason: INDIGESTION Melatonin (Melatonin) 2.5 mg PO QHS [facility] Last Admin: 08/30/18 21:40 Dose: 2.5 mg Metoprolol Tartrate (Lopressor) 50 mg PO BID [facility] Last Admin: 08/31/18 10:11 Dose: 50 mg Nitroglycerin (Nitrostat 0.4mg) 0.4 mg SL Q5MIN PRN PRN Reason: CHEST PAIN Olanzapine (Zyprexa) 5 mg PO QHS [facility] Last Admin: 08/30/18 21:42 Dose: 5 mg Pantoprazole Sodium (Protonix) 40 mg PO DAILYAC [facility] Last Admin: 08/31/18 06:58 Dose: 40 mg Petrolatum (Secura Oint) 2 gm TOP BID [facility] Last Admin: 08/31/18 10:12 Dose: 2 gm Potassium Chloride (Klor-Con) 10 meq PO DAILY [facility] Last Admin: 08/31/18 10:11 Dose: 10 meq Sodium Chloride (Sierra Nasal) 0.5 ml NA Q3H [facility] Last Admin: 08/31/18 18:01 Dose: 0.5 ml Physical Exam - Vital Signs Vital Signs: Vital Signs - Last 24 Hrs Temp Pulse Resp BP BP BP Pulse Ox 08/31/18 19:53 97.7 F 93 H 16 108/60 97 08/31/18 10:59 97.8 F 118/80 08/31/18 08:00 97.8 F 92 H 16 118/80 93 L 08/31/18 04:00 98.1 F 77 18 116/76 93 L 08/31/18 02:29 95 H 24 97/59 95 - General General Appearance: Alert, Oriented x3, Cooperative, No acute distress - Head Head exam: Normal inspection - Eye Eye exam: Normal appearance, PERRL Pupils: Normal accommodation - ENT ENT exam: Normal exam, Mucous membranes moist, Normal external ear exam, Normal orophraynx, TM's normal bilaterally Ear exam: Normal external inspection. negative: External canal tenderness Nasal Exam: Normal inspection. negative: Discharge, Sinus tenderness Mouth exam: Normal external inspection, Tongue normal Teeth exam: Normal inspection. negative: Dental caries Throat exam: Normal inspection. negative: Tonsillar erythema, Tonsillar exudate - Neck Neck exam: Normal inspection, Full ROM. negative: Tenderness - Respiratory Respiratory exam: Normal lung sounds bilaterally. negative: Respiratory distress - Cardiovascular Cardiovascular Exam: Regular rate, Normal rhythm, Normal heart sounds - GI/Abdominal GI/Abdominal exam: Soft, Normal bowel sounds. negative: Tenderness - Rectal Rectal exam: Deferred - exam: Deferred - Extremities Extremities exam: Normal inspection, Full ROM, Normal capillary refill. negative: Tenderness - Back Back exam: Reports: Normal inspection, Full ROM. Denies: Muscle spasm, Rash noted, Tenderness - Neurological Neurological exam: Alert, Normal gait, Oriented X3, Reflexes normal - Psychiatric Psychiatric exam: Normal affect, Normal mood - Skin Skin exam: Dry, Intact, Normal color, Warm H&P Results - Labs Result Diagrams: 08/31/18 07:34 08/31/18 07:34 Labs Last 24 Hours: Laboratory Results - last 24 hr 08/31/18 08/31/18 07:34 07:34 WBC 13.4 H RBC 3.20 L Hgb 9.5 L Hct 31.6 L MCV 98.8 H MCH 29.6 MCHC 30.1 L RDW 15.9 H Plt Count 309 MPV 9.6 Neutrophils % 87.0 H Eosinophils % Not Reportable Basophils % Not Reportable Lymphocytes 7.0 L Monocytes 6.0 Sodium 140 Potassium 4.0 Chloride 103 Carbon Dioxide 25.0 Anion Gap 12.0 BUN 37 H Creatinine 1.6 H Estimated GFR 44 Random Glucose 106 Calcium 8.8 Discharge Potential - Discharge Needs Community Services Used Prior to Admission: Home Health Nurse, Occupational Therapy, Physical Therapy, Transportation, [facility] Patient Discharge Plan Description: Return Home Community Services Needed at Discharge: Home Health Nurse, Occupational Therapy , Physical Therapy, Transportation, [facility] Plan - Swing Bed Certification Initial Certification Due: 08/30/18 14 Day Re-Cert Due: 09/13/18 44 Day Re-Cert Due: 10/13/18 74 Day Re-Cert Due: 11/12/18 - Detailed Diagnosis and Plan (1) Physical deconditioning Current Visit: Yes Status: Acute Base Code: R53.81 - OTHER MAL[place]ISE Priority: High (2) CHF (congestive heart failure) Current Visit: No Status: Acute Qualifiers: Heart failure type: systolic Heart failure chronicity: unspecified Qualified Code(s): I50.20 - Unspecified systolic (congestive) heart failure Base Code: I50.9 - HEART FAILURE, UNSPECIFIED Priority: High Comment: : -Pro-BNP: 14,000 on 08/18 -Weight loss of 8 lbs overnight -lasix 20mg bid -Potassium stable (3) Atrial fibrillation Current Visit: No Status: Acute Qualifiers: Atrial fibrillation type: chronic Qualified Code(s): I48.2 - Chronic atrial fibrillation Base Code: I48.91 - UNSPECIFIED ATRIAL FIBRILLATION Priority: Medium (4) CKD (chronic kidney disease) Current Visit: No Status: Acute Qualifiers: Chronic kidney disease stage: stage 2 (mild) Qualified Code(s): N18.2 - Chronic kidney disease, stage 2 (mild) Base Code: N18.9 - CHRONIC KIDNEY DISEASE, UNSPECIFIED Priority: Medium Comment: 06/10/18: -Creatinine improved from 1.3 to 1.2, GFR improved from 56 to >60 -[facility] records indicate Creatinine 1.4 - 1.5, GFR 45-50 -Reduce Lasix from 40mg IV BID to 20mg PO BID (5) COPD (chronic obstructive pulmonary disease) Current Visit: No Status: Acute Qualifiers: COPD type: COPD with acute exacerbation Qualified Code(s): J44.1 - Chronic obstructive pulmonary disease with (acute) exacerbation Base Code: J44.9 - CHRONIC OBSTRUCTIVE PULMONARY DISEASE, UNSPECIFIED (6) Epistaxis Current Visit: No Status: Acute Base Code: R04.0 - EPISTAXIS Priority: Medium (7) Pleural effusion Current Visit: No Status: Acute Base Code: J90 - PLEURAL EFFUSION, NOT ELSEWHERE CLASSIFIED Priority: Low Comment: 08/20/18: -Hx of Pleural Effusion, has had 1.6 L removed -Lasix 20mg BID -RR 26 and 96% on 1L NC -Holding anticoagulants for potential throacentesis (outside location)
[2018-08-31] MEDS: MELATONIN 5 MG TABLET PO SCH (21:59)
[2018-08-31] MEDS: OLANZAPINE 5MG TABLET PO SCH (21:59)
[2018-08-31] MEDS: ATORVASTATIN 20 MG TABLET PO SCH (21:59)
[2018-08-31] MEDS: ACETAMINOPHEN 325 MG TAB PO PRN (22:48)
[2018-09-01] MEDS: SODIUM CHLORIDE NASAL SPRAY SCH ×8 (03:03→21:14)
[2018-09-01] MEDS: CEPHALEXIN 250 MG CAPSULE PO SCH ×3 (06:46→21:08)
[2018-09-01] MEDS: LEVOTHYROXINE SOD 112 MCG TAB PO SCH (06:46)
[2018-09-01] MEDS: PANTOPRAZOLE SODIUM 40 MG TABLET PO SCH (06:46)
--- NOTE | 2018-09-01 08:22 | Occupational Therapy Tx Note ---
Occupational Therapy Tx Note - Treatment Note Tolerated: Good Total Time Spent With Patient: 45 (ADL) Occupational Therapy Treatment Note: Detail (S: Pt awake and willing to shower. O: Supine to sit Indly. Sit to stand and amb to shower seat with 4 wheeled walker with SBA. Pt doffed gown with assist to untie, doffed pants, underwear and slipper socks Indly. Pt completed total body showering in sitting and standing with CG assist for standing portion and assist to wash back. Provided verbal cues for pacing and breathing technique as pt was significantly short of breath. Pt dried self Indly and donned t-shirt with cues for modified technique due to right shoulder weakness. Sit to stand from shower seat with use of grab bar and amb to EOB with 4 wheeled walker and SBA. Pt donned underwear, sweat pants and tennis shoes with min assist to pull pants over right hip. Pt combed hair with min assist due to right shoulder weakness. Pt completed shaving with electric razor in sitting at EOB Indly. A: CG assist with showering, min assist with LE dressing, modified Ind with upper body dressing, pt very short of breath with self care activity.) Occupational Therapy Problem List: Detail (1. Decreased activity tolerance needed for safe and Ind self cares. 2. Decreased Ind with total body showering.) Occupational Therapy Goals: 1. Pt will demonstrate improved activity tolerance to allow safe and Ind self cares. 2. Pt will be safe and Ind with total body showering in sitting and standing. 3. Pt will be safe and Ind with functional mobility needed for ADLs. Prognosis: Good Occupational Therapy Plan: OT 2-4 days per week to address goals and problem list as above.
[2018-09-01] MEDS: MAGNESIUM HYDROXIDE 30 ML UDC PO PRN (10:46)
[2018-09-01] MEDS: POTASSIUM CHLORIDE 10 MEQ TAB PO SCH (10:47)
[2018-09-01] MEDS: DILTIAZEM HCL 120 MG ER CAPSULE PO SCH (10:47)
[2018-09-01] MEDS: METOPROLOL TART 50 MG TABLET PO SCH ×2 (10:47→21:09)
[2018-09-01] MEDS: FUROSEMIDE 20 MG TABLET PO SCH (10:48)
[2018-09-01] MEDS: [UNRECOGNIZED DRUG - OTHER] TOP SCH ×2 (11:30→21:15)
[2018-09-01] MEDS: PETROLATUM TOP SCH ×2 (11:30→21:15)
--- NOTE | 2018-09-01 16:59 | Physical Therapy Tx Note ---
Physical Therapy Tx Note - Treatment Note Tolerated: Good Total Time Spent With Patient: 30 Physical Therapy Tx Note: Detail (The patient was up in chair when PT arrived. The patient ambulated ambulated 35 feet x 2 with 4 wheeled walker with moderate shortness of breath. The patient was taken to Rehab department and completed the following in the parallel bars : standing squats, hip abduction and hip extension bilaterally x 10 reps, standing balance with feet apart, together and in tandem position. The patient required 4 rest periods due to shortness of breath and productive coughing spells. The patient's daughter was present for treatment. The patient was returned to room and left in bed with nursing staff and daughter present.) Physical Therapy Problem List: Detail (1) Decreased hip strength bilaterally 2) Decreased standing balance 3) Decreased ability to complete prolonged physical activity.) Physical Therapy Goals: 1. The patient's balance will improve to moderate risk for falling category using Tinetti Assessment Tool. 2) The patient will ambulate with appropriate assistive device community distance as required in AFC. 3) Increase LE strength 1/3 muschle grade to increase stability of gait. 4) The patient will tolerate 30 minutes of physical activity with one rest period. Physical Therapy Plan: PT 1-2 times a day for gait training, balance and LE strengthening and muscular endurance exercises.
[2018-09-01] MEDS: MELATONIN 5 MG TABLET PO SCH (21:08)
[2018-09-01] MEDS: OLANZAPINE 5MG TABLET PO SCH (21:09)
[2018-09-01] MEDS: ATORVASTATIN 20 MG TABLET PO SCH (21:18)
[2018-09-01] MEDS: ALBUTEROL SULFATE (0.083%) 2.5 MG/3 ML NEB INH PRN (22:41)
[2018-09-02] MEDS: SODIUM CHLORIDE NASAL SPRAY SCH ×6 (02:59→23:59)
[2018-09-02] MEDS: LEVOTHYROXINE SOD 112 MCG TAB PO SCH (07:57)
[2018-09-02] MEDS: PANTOPRAZOLE SODIUM 40 MG TABLET PO SCH (07:57)
[2018-09-02] MEDS: CEPHALEXIN 250 MG CAPSULE PO SCH ×3 (07:57→22:28)
--- NOTE | 2018-09-02 09:56 | Physical Therapy Tx Note ---
Physical Therapy Tx Note - Treatment Note Tolerated: Good Total Time Spent With Patient: 35 Physical Therapy Tx Note: Detail (The patient denied any increased fatigue after yesterday's exercises. The patient ambulated 50 feet x 1 with 4 wheeled walker with supervision for safety.The patient was taken to Rehab department and completed Nu step x 10 minutes. The patient then completed the following Red T-band exercises including: hamstring curls, hip abduction, LAQ, all x 15 reps, hip adduction squeezes x 15 reps and hip marching x 1 min. The patient required 2 rest periods today. Shortness of breath was less today. Patient was returned to room and left with daughter.) Physical Therapy Problem List: Detail (1) Decreased hip strength bilaterally 2) Decreased standing balance 3) Decreased ability to complete prolonged physical activity.) Physical Therapy Goals: 1. The patient's balance will improve to moderate risk for falling category using Tinetti Assessment Tool. 2) The patient will ambulate with appropriate assistive device community distance as required in AFC. 3) Increase LE strength 1/3 muschle grade to increase stability of gait. 4) The patient will tolerate 30 minutes of physical activity with one rest period. Physical Therapy Plan: PT 1-2 times a day for gait training, balance and LE strengthening and muscular endurance exercises.
[2018-09-02] MEDS ORDERED: FUROSEMIDE 40 MG TABLET PO SCH (10:00)
[2018-09-02] MEDS: MAGNESIUM HYDROXIDE 30 ML UDC PO PRN (10:19)
[2018-09-02] MEDS: METOPROLOL TART 50 MG TABLET PO SCH ×2 (10:20→22:24)
[2018-09-02] MEDS: DILTIAZEM HCL 120 MG ER CAPSULE PO SCH (10:20)
[2018-09-02] MEDS: POTASSIUM CHLORIDE 10 MEQ TAB PO SCH (10:20)
[2018-09-02] MEDS: FUROSEMIDE 20 MG TABLET PO SCH (10:22)
--- NOTE | 2018-09-02 13:44 | Physical Therapy Tx Note ---
Physical Therapy Tx Note - Treatment Note Tolerated: Good Total Time Spent With Patient: 25 Physical Therapy Tx Note: Detail (Patient was ambulating from bathroom to chair with nursing upon [facility] arrival. Patient states he's exhausted this afternoon. Patient agreeable to treatment. Patient transferred sit to and from stand CGA x1. Patient ambulated 50 feet with four wheeled walker CGA x1. Patient performed the following seated exercises x10 reps each: marching, heel raises, toe raises, LAQ, isometric hamstring sets, isometric hip abduction, adductor squeezes, and glut squeezes. Patient declined standing exercises. Patient reports feeling tired after treatment. Patient was left seated in chair with call light within reach.) Physical Therapy Problem List: Detail (1) Decreased hip strength bilaterally 2) Decreased standing balance 3) Decreased ability to complete prolonged physical activity.) Physical Therapy Goals: 1. The patient's balance will improve to moderate risk for falling category using Tinetti Assessment Tool. 2) The patient will ambulate with appropriate assistive device community distance as required in AFC. 3) Increase LE strength 1/3 muschle grade to increase stability of gait. 4) The patient will tolerate 30 minutes of physical activity with one rest period. Prognosis: Good Physical Therapy Plan: PT 1-2 times a day for gait training, balance and LE strengthening and muscular endurance exercises.
[2018-09-02] MEDS: MELATONIN 5 MG TABLET PO SCH (22:24)
[2018-09-02] MEDS: ATORVASTATIN 20 MG TABLET PO SCH (22:24)
[2018-09-02] MEDS: OLANZAPINE 5MG TABLET PO SCH (22:24)
[2018-09-02] MEDS: [UNRECOGNIZED DRUG - OTHER] TOP SCH (22:29)
[2018-09-02] MEDS: PETROLATUM TOP SCH (22:29)
[2018-09-02] MEDS: ACETAMINOPHEN 325 MG TAB PO PRN (22:40)
[2018-09-03] MEDS: SODIUM CHLORIDE NASAL SPRAY SCH ×8 (00:40→21:46)
[2018-09-03] MEDS: ALBUTEROL SULFATE (0.083%) 2.5 MG/3 ML NEB INH PRN ×3 (00:59→22:05)
[2018-09-03] MEDS: LEVOTHYROXINE SOD 112 MCG TAB PO SCH (06:41)
[2018-09-03] MEDS: CEPHALEXIN 250 MG CAPSULE PO SCH ×2 (06:41→14:50)
[2018-09-03] MEDS: PANTOPRAZOLE SODIUM 40 MG TABLET PO SCH (06:41)
[2018-09-03] MEDS: FUROSEMIDE 20 MG TABLET PO SCH (09:07)
[2018-09-03] MEDS: DILTIAZEM HCL 120 MG ER CAPSULE PO SCH (09:07)
[2018-09-03] MEDS: POTASSIUM CHLORIDE 10 MEQ TAB PO SCH (09:07)
[2018-09-03] MEDS: METOPROLOL TART 50 MG TABLET PO SCH ×2 (09:07→21:53)
--- NOTE | 2018-09-03 09:46 | Physical Therapy Tx Note ---
Physical Therapy Tx Note - Treatment Note Tolerated: Fair Total Time Spent With Patient: 20 Physical Therapy Tx Note: Detail (The patient complained of abdominal pain due to constipation. The patient ambulated with 4 wheeled walker 24 feet x 1. The patient was taken to Rehab department and completed hip abduction x 12 reps in the parallel bars. The patient required a rest period and requested to go to the Nu step. The patient completed the Nu step x 7 minutes with a break at the 5 minute [place]. The patient was returned to room via wheelchair. The patient exhibited increased shortness of breath today and increased overall fatigue. Patient was anxious ie: constipation.) Physical Therapy Problem List: Detail (1) Decreased hip strength bilaterally 2) Decreased standing balance 3) Decreased ability to complete prolonged physical activity.) Physical Therapy Goals: 1. The patient's balance will improve to moderate risk for falling category using Tinetti Assessment Tool. 2) The patient will ambulate with appropriate assistive device community distance as required in AFC. 3) Increase LE strength 1/3 muschle grade to increase stability of gait. 4) The patient will tolerate 30 minutes of physical activity with one rest period. Physical Therapy Plan: PT 1-2 times a day for gait training, balance and LE strengthening and muscular endurance exercises.
[2018-09-03] MEDS: MAGNESIUM HYDROXIDE 30 ML UDC PO PRN (09:47)
[2018-09-03] MEDS: POLYETHYLENE GLY 17 GM PACKET PO SCH ×2 (10:44→21:53)
[2018-09-03] MEDS ORDERED: BISACODYL 10 MG SUPP RC SCH (10:45)
[2018-09-03] MEDS: [UNRECOGNIZED DRUG - OTHER] TOP SCH ×3 (11:13→21:54)
[2018-09-03] MEDS: PETROLATUM TOP SCH ×3 (11:13→21:54)
[2018-09-03] MEDS: ACETAMINOPHEN 325 MG TAB PO PRN ×2 (12:04→21:51)
[2018-09-03] MEDS ORDERED: BISACODYL 10 MG SUPP RC PRN (12:45)
--- NOTE | 2018-09-03 15:10 | Occupational Therapy Tx Note ---
Occupational Therapy Tx Note - Treatment Note Tolerated: Fair Total Time Spent With Patient: 40 (ther ex) Occupational Therapy Treatment Note: Detail (S: Pt in bed, finishing breathing treatment. O: Supine to sit and amb 10 feet to wheelchair Indly with 4 wheeled walker. Pt transported to rehab gym via wheelchair. Pt transferred onto UBE with min assist and completed 1 min forward, rested for 1 1/2 min and completed 1 min reverse at 120 rpms. Pt reported significant fatigue with UBE. Pt transferred into wheelchair with CG assist. Pt completed hayley UE repetitive reaching activity with resisted clothespins x 25 each arm. Pt required assist with right shoulder flexion due to premorbid injury as he states he has "no rotator cuff". Pt provided with red theraputty and he was able to complete hayley rod pointer, rolling and pinch x 5 minutes. Pt transported back to room via wheelchair and transferred to EOB with SBA. A: Pt very fatigued with ther ex but improvement noted with shortness of breath.) Occupational Therapy Problem List: Detail (1. Decreased activity tolerance needed for safe and Ind self cares. 2. Decreased Ind with total body showering.) Occupational Therapy Goals: 1. Pt will demonstrate improved activity tolerance to allow safe and Ind self cares. 2. Pt will be safe and Ind with total body showering in sitting and standing. 3. Pt will be safe and Ind with functional mobility needed for ADLs. Prognosis: Good Occupational Therapy Plan: OT 2-4 days per week to address goals and problem list as above.
[2018-09-03] MEDS: ATORVASTATIN 20 MG TABLET PO SCH (21:51)
[2018-09-03] MEDS: OLANZAPINE 5MG TABLET PO SCH (21:52)
[2018-09-03] MEDS: MELATONIN 5 MG TABLET PO SCH (21:52)
[2018-09-04] MEDS: SODIUM CHLORIDE NASAL SPRAY SCH ×5 (00:46→11:59)
[2018-09-04] MEDS: PANTOPRAZOLE SODIUM 40 MG TABLET PO SCH (06:52)
[2018-09-04] MEDS: LEVOTHYROXINE SOD 112 MCG TAB PO SCH (06:52)
[2018-09-04] MEDS: [UNRECOGNIZED DRUG - OTHER] TOP SCH ×2 (10:58→21:08)
[2018-09-04] MEDS: POTASSIUM CHLORIDE 10 MEQ TAB PO SCH (10:58)
[2018-09-04] MEDS: METOPROLOL TART 50 MG TABLET PO SCH ×2 (10:58→21:06)
[2018-09-04] MEDS: PETROLATUM TOP SCH ×2 (10:58→21:08)
[2018-09-04] MEDS: FUROSEMIDE 20 MG TABLET PO SCH (10:58)
[2018-09-04] MEDS: DILTIAZEM HCL 120 MG ER CAPSULE PO SCH (10:59)
[2018-09-04] MEDS: POLYETHYLENE GLY 17 GM PACKET PO SCH ×2 (11:02→21:08)
[2018-09-04] MEDS: MAGNESIUM HYDROXIDE 30 ML UDC PO PRN (11:04)
[2018-09-04] MEDS: ATORVASTATIN 20 MG TABLET PO SCH (21:06)
[2018-09-04] MEDS: OLANZAPINE 5MG TABLET PO SCH (21:06)
[2018-09-04] MEDS: MELATONIN 5 MG TABLET PO SCH (21:07)
[2018-09-04] MEDS: ALBUTEROL SULFATE (0.083%) 2.5 MG/3 ML NEB INH PRN (21:59)
[2018-09-05] MEDS: ALBUTEROL SULFATE (0.083%) 2.5 MG/3 ML NEB INH PRN ×4 (01:48→23:50)
[2018-09-05] MEDS: PANTOPRAZOLE SODIUM 40 MG TABLET PO SCH (08:42)
[2018-09-05] MEDS: LEVOTHYROXINE SOD 112 MCG TAB PO SCH (08:42)
[2018-09-05] MEDS: FUROSEMIDE 20 MG TABLET PO SCH (10:28)
[2018-09-05] MEDS: PETROLATUM TOP SCH ×2 (10:28→22:17)
[2018-09-05] MEDS: POLYETHYLENE GLY 17 GM PACKET PO SCH ×3 (10:28→23:41)
[2018-09-05] MEDS: METOPROLOL TART 50 MG TABLET PO SCH ×2 (10:28→22:15)
[2018-09-05] MEDS: POTASSIUM CHLORIDE 10 MEQ TAB PO SCH (10:28)
[2018-09-05] MEDS: [UNRECOGNIZED DRUG - OTHER] TOP SCH ×2 (10:28→22:17)
[2018-09-05] MEDS: DILTIAZEM HCL 120 MG ER CAPSULE PO SCH (10:28)
[2018-09-05] MEDS ORDERED: FUROSEMIDE 20 MG TABLET PO ONE (18:59)
[2018-09-05] MEDS ORDERED: AZITHROMYCIN 500 MG TABLET PO ONE (19:01)
[2018-09-05] MEDS: SODIUM CHLORIDE NASAL SPRAY SCH ×8 (20:21→23:46)
[2018-09-05] MEDS: ACETAMINOPHEN 325 MG TAB PO PRN (22:13)
[2018-09-05] MEDS: MELATONIN 5 MG TABLET PO SCH (22:15)
[2018-09-05] MEDS: OLANZAPINE 5MG TABLET PO SCH (22:16)
[2018-09-05] MEDS: ATORVASTATIN 20 MG TABLET PO SCH (22:16)
[2018-09-06] MEDS: SODIUM CHLORIDE NASAL SPRAY SCH ×7 (01:23→22:02)
[2018-09-06] MEDS: LEVOTHYROXINE SOD 112 MCG TAB PO SCH (06:50)
[2018-09-06] MEDS: PANTOPRAZOLE SODIUM 40 MG TABLET PO SCH (06:50)
--- NOTE | 2018-09-06 07:59 | RADIOLOGY REPORT ---
EXAM: CHEST, TWO VIEWS HISTORY: SHORTNESS OF BREATH. TECHNIQUE: PA and lateral upright views of the chest were obtained. Comparison: 08/20/18. FINDINGS: A pacemaker is in place. The heart is partially obscured, but appears normal in size. The mediastinum and pulmonary vasculature are normal. There is a large right pleural effusion which appears similar to the previous examination. There is associated right basilar atelectasis. A tiny left pleural effusion is present and also appears similar. No definite acute infiltrates are identified. There is no pneumothorax. Degenerative changes are present within the spine and shoulders. There are no acute osseous abnormalities. IMPRESSION: 1. LARGE RIGHT PLEURAL EFFUSION WITH ASSOCIATED BASILAR ATELECTASIS. 2. TINY LEFT PLEURAL EFFUSION. JOB NUMBER: [id number] MTDD
[2018-09-06] MEDS: POTASSIUM CHLORIDE 10 MEQ TAB PO SCH (09:28)
[2018-09-06] MEDS: ASPIRIN 81 MG CHEWABLE TABLET PO SCH (09:28)
[2018-09-06] MEDS: FUROSEMIDE 20 MG TABLET PO SCH (09:28)
[2018-09-06] MEDS: DILTIAZEM HCL 120 MG ER CAPSULE PO SCH (09:28)
[2018-09-06] MEDS: POLYETHYLENE GLY 17 GM PACKET PO SCH ×2 (09:29→22:05)
[2018-09-06] MEDS: CLOPIDOGREL 75MG TABLET PO SCH (09:29)
[2018-09-06] MEDS: METOPROLOL TART 50 MG TABLET PO SCH ×2 (09:29→22:03)
[2018-09-06] MEDS: PETROLATUM TOP SCH ×2 (09:29→22:05)
[2018-09-06] MEDS: [UNRECOGNIZED DRUG - OTHER] TOP SCH ×2 (09:29→22:05)
[2018-09-06] MEDS: AZITHROMYCIN 500 MG TABLET PO SCH (09:30)
--- NOTE | 2018-09-06 10:54 | Physical Therapy Tx Note ---
Physical Therapy Tx Note - Treatment Note Tolerated: Good Total Time Spent With Patient: 30 Physical Therapy Tx Note: Detail (The patient was up in a chair when PT arrived. The patient ambulated with 4 wheeled walker a distance of 35 feet x 2 with minimal shortness of breath. The patient completed the Nu step x 10 minutes. The patient completed the following exercises in the parallel bars: squats, hip abduction, hip extension all x 10 reps, balance exercises: standing with varying bases of support feet together, feet in mid stride and on cushion with normal base of support and perturbations. The patient had two rest periods today. The patient had minimal shortness of breath with activity and pulse rate with exercise ranged in the 88 to 99 beats per minute. Will continue to progress activity as tolerated. Patient is still unable to ambulate distance required from his apartment to dining room.) Physical Therapy Problem List: Detail (1) Decreased hip strength bilaterally 2) Decreased standing balance 3) Decreased ability to complete prolonged physical activity.) Physical Therapy Goals: 1. The patient's balance will improve to moderate risk for falling category using Tinetti Assessment Tool. 2) The patient will ambulate with appropriate assistive device community distance as required in AFC. 3) Increase LE strength 1/3 muschle grade to increase stability of gait. 4) The patient will tolerate 30 minutes of physical activity with one rest period. Physical Therapy Plan: PT 1-2 times a day for gait training, balance and LE strengthening and muscular endurance exercises.
--- NOTE | 2018-09-06 13:55 | Occupational Therapy Tx Note ---
Occupational Therapy Tx Note - Treatment Note Tolerated: Fair Total Time Spent With Patient: 35 (ther ex) Occupational Therapy Treatment Note: Detail (S: Pt up in recliner, feeling very fatigued. O: Sit to stand with SBA and amb 8 feet to wheelchair with 4 wheeled walker before becoming too fatigued to ambulate further. Pt seated in wheelchair and transported to rehab gym. Pt completed vaughn UE endurance activities as follows: shoulder arc x 1 set each UE with left arm assisting right arm due to weakness. Red power web for vaughn hand/filling and stapling machine operator strengthening x 10 reps each hand and for supination/filling and stapling machine operator x 10 reps each UE. [place] box for vaughn coordination as pt reports left index finger "just stopped working" a couple of months ago. Vaughn bicep curls with 3# free weights x 10 reps x 2 sets. Pt very fatigued and short of breath with resistive activities. Pt transported back to room via wheelchair. Sit to stand from wheelchair with CG assist and amb 3 feet to chair with SBA. A: Significant shortness of breath continues although slightly improved overall.) Occupational Therapy Problem List: Detail (1. Decreased activity tolerance needed for safe and Ind self cares. 2. Decreased Ind with total body showering.) Occupational Therapy Goals: 1. Pt will demonstrate improved activity tolerance to allow safe and Ind self cares. 2. Pt will be safe and Ind with total body showering in sitting and standing. 3. Pt will be safe and Ind with functional mobility needed for ADLs. Prognosis: Good Occupational Therapy Plan: OT 2-4 days per week to address goals and problem list as above.
--- NOTE | 2018-09-06 15:00 | Physician Progress Note ---
Subjective - Date Date of Progress Note: 09/06/18 - Admitting Diagnosis Diagnosis: deconditioning due to heart failure. left epistaxis requiring cautery of the left sphenopalatine artery for persistent posterior epistaxis. CAD. CHF. SSS with pacemaker - Subjective Events since last encounter: Patient is SOB with exercise and it was noted he has decreased breath sounds on the right side of his lung. Chest xray revealed a pleural effusion similiar to the effusion he had about three weeks ago and went to [facility] and had it drained by Dr Ulises Miller pager [phone] and office number [phone] Miller and he said he will have the pleural effusion forever and he thinks his lung is trapped up and it has been drained twice and it is back again. He said if he gets SOB at rest he will drain it again but it probably will return in a couple of weeks. Currently patient is breathing well at rest and his pulse ox is good 94 % on room air and he had sounds of bronchitis with sputum production and some wheezing in his good left lung. He was started on azithromycin and he has breathing treatments available. today I am going to start oral prednisone 20 mg BID for 5 days and also will add trazodone 25 mg for sleep and he states he is having a hard time sleeping and anxiety maybe making things worse. Nursing Care Plan Problem List Activity Intolerance (Swing Bed) Start: 08/30/18 19:05 Freq: Status: Active Protocol: [place] 08/30/18 19:05 [facility] [place]Rec[place] 08/30/18 19:05 [facility] [id number][place] Altered Thought Process (Fall Risk) Start: 08/31/18 10:01 Freq: Status: Active Protocol: Created 08/31/18 10:01 [facility] [place]Rec: 08/31/18 10:01 [facility] [id number][place] Impaired Mobility (Fall Risk) Start: 08/31/18 10:01 Freq: Status: Active Protocol: Created 08/31/18 10:01 [facility]Rec: 08/31/18 10:01 [facility] [id number][place] Knowledge Deficit (Swing Bed) Start: 08/30/18 19:05 Freq: Status: Active Protocol: Created 08/30/18 19:05 [facility] [place]Rec: 08/30/18 19:05 [facility] [id number]) Pain (Swing Bed) Start: 08/30/18 19:05 Freq: Status: Active Protocol: Created 08/30/18 19:05 [facility] [place]Rec: 08/30/18 19:05 [facility] [id number]) Risk for Injury (Fall Risk) Start: 08/31/18 10:01 Freq: Status: Active Protocol: Created 08/31/18 10:01 [facility] [place]Rec: 08/31/18 10:01 [facility] [id number][place] General - Cognitive Patterns Speech: Normal Thought Process: Intact Thought Content: Normal - Communication Select best description of speech pattern: Clear Speech Ability to express ideas and wants: Understood Understanding verbal content: Understands - Mood and Behavior Patterns Appearance: Well Groomed Mood: Normal, Irritable Attitude: Cooperative Motor Activity: Calm Affect: Appropriate Hallucinations: Denies - Physical Functioning Activity Level: Up with assist x1 Turning: Self ad hope ROM Ability: Within Normal Limits, Moves all extremities Assistive Devices: 4 Wheel Walker Activity Level Comment: pt's own walker. walker tagged with pt id. [ End ] Ambulation Ability: Needs Assist Bed Mobility: Independent Transfer Ability: Needs Assist Bathing Ability: Independent Personal Hygiene: Independent Dressing Ability: Needs Assist Eating (Feeding) Ability: Independent Toileting Ability: Needs Assist Administer Own Medication: Independent - Continence Bowel Pattern: Normal for Patient Bladder Pattern: Normal Meds/Allergies - Allergies Allergies Allergy/AdvReac Type Severity Reaction Status Date / Time No Known Drug Allergies Allergy Verified 08/14/18 12:07 - Active Medications Current Medications Acetaminophen (Tylenol 325mg) 650 mg PO Q6H PRN PRN Reason: PAIN - MILD (1-4) Last Admin: 09/05/18 22:13 Dose: 650 mg Albuterol Sulfate (Albuterol Sulfate) 2.5 mg INH RESP.Q4H PRN PRN Reason: DIFFICULTY IN BREATHING Last Admin: 09/05/18 23:50 Dose: 2.5 mg Aspirin (Aspirin Chewable) 81 mg PO DAILY [facility] Last Admin: 09/06/18 09:28 Dose: 81 mg Atorvastatin Calcium (Lipitor) 20 mg PO QHS [facility] Last Admin: 09/05/18 22:16 Dose: 20 mg Azithromycin (Zithromax) 500 mg PO DAILY [facility] Last Admin: 09/06/18 09:30 Dose: 500 mg Benzonatate (Tessalon) 100 mg PO TID PRN PRN Reason: COUGH Bisacodyl (Dulcolax) 10 mg RC BID PRN PRN Reason: CONSTIPATION Clopidogrel Bisulfate (Plavix) 75 mg PO DAILY [facility] Last Admin: 09/06/18 09:29 Dose: 75 mg Diltiazem HCl (Cardizem Cd) 120 mg PO DAILY [facility] Last Admin: 09/06/18 09:28 Dose: 120 mg Furosemide (Lasix) 20 mg PO DAILY [facility] Last Admin: 09/06/18 09:28 Dose: 20 mg Levothyroxine Sodium (Synthroid) 112 mcg PO DAILYTHY [facility] Last Admin: 09/06/18 06:50 Dose: 112 mcg Magnesium Hydroxide (Milk Of Magnesium) 30 ml PO DAILY PRN PRN Reason: INDIGESTION Last Admin: 09/04/18 11:04 Dose: 30 ml Melatonin (Melatonin) 2.5 mg PO QHS [facility] Last Admin: 09/05/18 22:15 Dose: 2.5 mg Metoprolol Tartrate (Lopressor) 50 mg PO BID [facility] Last Admin: 09/06/18 09:29 Dose: 50 mg Nitroglycerin (Nitrostat 0.4mg) 0.4 mg SL Q5MIN PRN PRN Reason: CHEST PAIN Olanzapine (Zyprexa) 5 mg PO QHS [facility] Last Admin: 09/05/18 22:16 Dose: 5 mg Pantoprazole Sodium (Protonix) 40 mg PO DAILYAC [facility] Last Admin: 09/06/18 06:50 Dose: 40 mg Petrolatum (Secura Oint) 2 gm TOP BID [facility] Last Admin: 09/06/18 09:29 Dose: 2 gm Polyethylene Glycol (Miralax) 17 gm PO BID [facility] Last Admin: 09/06/18 09:29 Dose: Not Given Potassium Chloride (Klor-Con) 10 meq PO DAILY [facility] Last Admin: 09/06/18 09:28 Dose: 10 meq Sodium Chloride ([place] Nasal) 0.5 ml NA Q3H [facility] Last Admin: 09/06/18 09:28 Dose: 0.5 ml Objective - Vital Signs Vital Signs: Vital Signs - Last 24 Hrs Temp Pulse Pulse Resp BP BP BP 09/06/18 12:51 97.7 F 112/68 09/06/18 08:00 97.7 F 88 18 112/68 09/05/18 23:47 67 16 09/05/18 20:00 97.9 F 86 20 109/56 Pulse Ox 09/06/18 12:51 09/06/18 08:00 98 09/05/18 23:47 95 09/05/18 20:00 96 - General General Appearance: Alert, Oriented x3, Cooperative, No acute distress - Head Head exam: Normal inspection - Eye Eye exam: Normal appearance, PERRL Pupils: Normal accommodation - ENT ENT exam: Normal exam, Mucous membranes moist, Normal external ear exam, Normal orophraynx, TM's normal bilaterally Ear exam: Normal external inspection. negative: External canal tenderness Nasal Exam: Normal inspection. negative: Discharge, Sinus tenderness Mouth exam: Normal external inspection, Tongue normal Teeth exam: Normal inspection. negative: Dental caries Throat exam: Normal inspection. negative: Tonsillar erythema, Tonsillar exudate - Neck Neck exam: Normal inspection, Full ROM. negative: Tenderness - Respiratory Respiratory exam: Decreased breath sounds (especially on the right side with his pulmonary effusion,), Wheezes. negative: Respiratory distress - Cardiovascular Cardiovascular Exam: Regular rate, Normal rhythm, Normal heart sounds - GI/Abdominal GI/Abdominal exam: Soft, Normal bowel sounds. negative: Tenderness - Rectal Rectal exam: Deferred - exam: Deferred - Extremities Extremities exam: Normal inspection, Full ROM, Normal capillary refill. negative: Tenderness - Back Back exam: Reports: Normal inspection, Full ROM. Denies: Muscle spasm, Rash noted, Tenderness - Neurological Neurological exam: Alert, Normal gait, Oriented X3, Reflexes normal - Psychiatric Psychiatric exam: Normal affect, Normal mood - Skin Skin exam: Dry, Intact, Normal color, Warm H&P Results - Labs Result Diagrams: 08/31/18 07:34 08/31/18 07:34 Discharge Potential - Discharge Needs Community Services Used Prior to Admission: Home Health Nurse, Oxygen Therapy, Physical Therapy Patient Discharge Plan Description: Visiting Nurse, AFC/Assisted Living Community Services Needed at Discharge: Home Health Nurse, Physical Therapy Discharge Needs Comment: followed by [facility] - Swing Bed Certification Initial Certification Due: 08/30/18 14 Day Re-Cert Due: 09/13/18 44 Day Re-Cert Due: 10/13/18 74 Day Re-Cert Due: 11/12/18 - Detailed Diagnosis and Plan (1) Physical deconditioning Current Visit: Yes Status: Acute Base Code: R53.81 - OTHER MALA[place] Priority: High (2) CHF (congestive heart failure) Current Visit: No Status: Acute Qualifiers: Heart failure type: systolic Heart failure chronicity: unspecified Qualified Code(s): I50.20 - Unspecified systolic (congestive) heart failure Base Code: I50.9 - HEART FAILURE, UNSPECIFIED Priority: High Comment: 08/20/18: -Pro-BNP: 14,000 on 08/18 -Weight loss of 8 lbs overnight -lasix 20mg bid -Potassium stable (3) Atrial fibrillation Current Visit: No Status: Acute Qualifiers: Atrial fibrillation type: chronic Qualified Code(s): I48.2 - Chronic atrial fibrillation Base Code: I48.91 - UNSPECIFIED ATRIAL FIBRILLATION Priority: Medium Comment: patient has a watchman device to prevent the risk of CVA without anticoagualation. [facility] managing that Dr. 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, stage 2 (mild) Base Code: N18.9 - CHRONIC KIDNEY DISEASE, UNSPECIFIED Priority: Medium Comment: 06/10/18: -Creatinine improved from 1.3 to 1.2, GFR improved from 56 to >60 -[facility] records indicate Creatinine 1.4 - 1.5, GFR 45-50 -Reduce Lasix from 40mg IV BID to 20mg PO BID (5) COPD (chronic obstructive pulmonary disease) Current Visit: No Status: Acute Qualifiers: COPD type: COPD with acute exacerbation Qualified Code(s): J44.1 - Chronic obstructive pulmonary disease with (acute) exacerbation Base Code: J44.9 - CHRONIC OBSTRUCTIVE PULMONARY DISEASE, UNSPECIFIED (6) Epistaxis Current Visit: No Status: Acute Base Code: R04.0 - EPISTAXIS Priority: Medium (7) Pleural effusion Current Visit: No Status: Acute Base Code: J90 - PLEURAL EFFUSION, NOT ELSEW HERE CLASSIFIED Priority: Low Comment: 08/20/18: -Hx of Pleural Effusion, has had 1.6 L removed -Lasix 20mg BID -RR 26 and 96% on 1L NC -Holding anticoagulants for potential throacentesis (outside location) (8) Bronchitis Current Visit: Yes Status: Acute Base Code: J40 - BRONCHITIS, NOT SPECIFIED ACUTE OR CHRONIC Priority: High (9) COPD exacerbation Current Visit: Yes Status: Acute Base Code: J44.1 - CHRONIC OBSTRUCTIVE PULMONARY DISEASE W (ACUTE) EXACERBATION Priority: High - Disposition continue [id number] mg daily start prednisone 20 mg BID for 5 days start trazodone 25 mg at night to help with sleep.
[2018-09-06] MEDS: PREDNISONE 20 MG TAB PO SCH (17:47)
[2018-09-06] MEDS: TRAZODONE 50 MG TABLET PO SCH (22:02)
[2018-09-06] MEDS: MELATONIN 5 MG TABLET PO SCH (22:03)
[2018-09-06] MEDS: ATORVASTATIN 20 MG TABLET PO SCH (22:04)
[2018-09-06] MEDS: ACETAMINOPHEN 325 MG TAB PO PRN (22:04)
[2018-09-06] MEDS: OLANZAPINE 5MG TABLET PO SCH (22:04)
[2018-09-06] MEDS: ALBUTEROL SULFATE (0.083%) 2.5 MG/3 ML NEB INH PRN (22:14)
[2018-09-07] MEDS: SODIUM CHLORIDE NASAL SPRAY SCH ×7 (01:01→22:31)
[2018-09-07] MEDS: LEVOTHYROXINE SOD 112 MCG TAB PO SCH (06:49)
[2018-09-07] MEDS: PANTOPRAZOLE SODIUM 40 MG TABLET PO SCH (06:50)
[2018-09-07] MEDS: PREDNISONE 20 MG TAB PO SCH ×2 (08:30→18:16)
[2018-09-07] MEDS: ASPIRIN 81 MG CHEWABLE TABLET PO SCH (09:53)
[2018-09-07] MEDS: DILTIAZEM HCL 120 MG ER CAPSULE PO SCH (09:53)
[2018-09-07] MEDS: POTASSIUM CHLORIDE 10 MEQ TAB PO SCH (09:54)
[2018-09-07] MEDS: CLOPIDOGREL 75MG TABLET PO SCH (09:54)
[2018-09-07] MEDS: FUROSEMIDE 20 MG TABLET PO SCH (09:54)
[2018-09-07] MEDS: METOPROLOL TART 50 MG TABLET PO SCH ×2 (09:54→22:32)
[2018-09-07] MEDS: AZITHROMYCIN 500 MG TABLET PO SCH (09:55)
[2018-09-07] MEDS: POLYETHYLENE GLY 17 GM PACKET PO SCH ×2 (09:55→22:34)
[2018-09-07] MEDS: PETROLATUM TOP SCH ×2 (09:55→22:39)
[2018-09-07] MEDS: [UNRECOGNIZED DRUG - OTHER] TOP SCH ×2 (09:55→22:39)
--- NOTE | 2018-09-07 12:36 | Physical Therapy Tx Note ---
Physical Therapy Tx Note - Treatment Note Tolerated: Good Total Time Spent With Patient: 30 Physical Therapy Tx Note: Detail (The patient was up in chair when PT arrived. The patient ambulated with 4 wheeled walker 40 feet x 1, 50 feet x 1 with minimal shortness of breath. The patient was taken to Rehab department and completed the following: Nu step x 10 minutes, LE exercises: Squats, with 2# LAQ and marching, green band hip abduction, hamstring curls and hip adductor squeezes all x 20 reps. The patient required 2 rest periods. Increased shortness of breath was noted with LE exercises.) Physical Therapy Problem List: Detail (1) Decreased hip strength bilaterally 2) Decreased standing balance 3) Decreased ability to complete prolonged physical activity.) Physical Therapy Goals: 1. The patient's balance will improve to moderate risk for falling category using Tinetti Assessment Tool. 2) The patient will ambulate with appropriate assistive device community distance as required in AFC. 3) Increase LE strength 1/3 muschle grade to increase stability of gait. 4) The patient will tolerate 30 minutes of physical activity with one rest period. Physical Therapy Plan: PT 1-2 times a day for gait training, balance and LE strengthening and muscular endurance exercises.
--- NOTE | 2018-09-07 14:52 | Occupational Therapy Tx Note ---
Occupational Therapy Tx Note - Treatment Note Tolerated: Fair Total Time Spent With Patient: 40 (THER EX) Occupational Therapy Treatment Note: Detail (S: Pt up in chair, visiting with brother. O: Pt amb approx. 50 feet with 4 wheeled walker and then was seated in wheelchair. He was transported to rehab gym via wheelchair. Pt completed hayley shoulder passive nelda exercises for shoulder flexion, ab/adduction and horizontal ab/adduction with focus on scapular stabilization. Pt completed green theraputty for hayley massage operator, rolling, pinch and finger extension x 5 min each hand. Pt completed hayley UE repetitive overhead reach with resisted clothespins. He required assist from left UE to lift right UE due to premorbid rotator cuff injury. Pt completed hayley massage operator strengthening with hand helper and 2 green rubber bands x 5 reps x 2 sets. Pt completed 1 min of passive pulleys to gently stretch shoulders. Pt transported back to room via wheelchair and transferred to recliner with SBA. A: Pt demonstrated significantly less shortness of breath today. He was very fatigued after session.) Occupational Therapy Problem List: Detail (1. Decreased activity tolerance needed for safe and Ind self cares. 2. Decreased Ind with total body showering.) Occupational Therapy Goals: 1. Pt will demonstrate improved activity tolerance to allow safe and Ind self cares. 2. Pt will be safe and Ind with total body showering in sitting and standing. 3. Pt will be safe and Ind with functional mobility needed for ADLs. Prognosis: Good Occupational Therapy Plan: OT 2-4 days per week to address goals and problem list as above.
[2018-09-07] MEDS: ATORVASTATIN 20 MG TABLET PO SCH (22:31)
[2018-09-07] MEDS: OLANZAPINE 5MG TABLET PO SCH (22:32)
[2018-09-07] MEDS: TRAZODONE 50 MG TABLET PO SCH (22:32)
[2018-09-07] MEDS: MELATONIN 5 MG TABLET PO SCH (22:33)
[2018-09-07] MEDS: ACETAMINOPHEN 325 MG TAB PO PRN (22:34)
[2018-09-08] MEDS: SODIUM CHLORIDE NASAL SPRAY SCH ×8 (04:01→22:20)
[2018-09-08] MEDS: PANTOPRAZOLE SODIUM 40 MG TABLET PO SCH (07:03)
[2018-09-08] MEDS: LEVOTHYROXINE SOD 112 MCG TAB PO SCH (07:03)
[2018-09-08] MEDS: PREDNISONE 20 MG TAB PO SCH ×2 (08:15→19:10)
[2018-09-08] MEDS: MAGNESIUM HYDROXIDE 30 ML UDC PO PRN (08:15)
[2018-09-08] MEDS: POTASSIUM CHLORIDE 10 MEQ TAB PO SCH (09:44)
[2018-09-08] MEDS: AZITHROMYCIN 500 MG TABLET PO SCH (09:44)
[2018-09-08] MEDS: METOPROLOL TART 50 MG TABLET PO SCH ×2 (09:44→22:21)
[2018-09-08] MEDS: FUROSEMIDE 20 MG TABLET PO SCH (09:44)
[2018-09-08] MEDS: CLOPIDOGREL 75MG TABLET PO SCH (09:44)
[2018-09-08] MEDS: DILTIAZEM HCL 120 MG ER CAPSULE PO SCH (09:44)
[2018-09-08] MEDS: ASPIRIN 81 MG CHEWABLE TABLET PO SCH (09:44)
[2018-09-08] MEDS: POLYETHYLENE GLY 17 GM PACKET PO SCH ×2 (09:46→22:23)
[2018-09-08] MEDS: PETROLATUM TOP SCH ×2 (11:33→22:23)
[2018-09-08] MEDS: [UNRECOGNIZED DRUG - OTHER] TOP SCH ×2 (11:33→22:23)
--- NOTE | 2018-09-08 13:56 | Physical Therapy Tx Note ---
Physical Therapy Tx Note - Treatment Note Tolerated: Good Total Time Spent With Patient: 45 Physical Therapy Tx Note: Detail (Patient states he's tired this morning. Patient transferred sit to and from stand SBA x1. Patient ambulated 30 feet with four wheeled walker SBA x1. Patient transferred sit to and from stand x2 SBA x1. Patient performed the following standing exercises x10 reps each: heel raises, toe raises, hip abduction, hip extension, and hamstring curls. Patient required seated rest breaks with standing exercises due to fatigue. Patient transferred sit to and from stand SBA x1. Patient performed Nustep L1 x8 minutes seat 11, arms 11. Patient transferred sit to and from stand x2 SBA x1. Patient performed the following exercises seated on edge of mat x10-15 reps each: rowing with yellow theraband, shoulder extension with yellow theraband, sh oulder ER with yellow theraband left, shoulder ER left ROM, shoulder IR with yellow theraband, shoulder adduction with yellow theraband, LAQ, seated marching, hip adductor squeezes with ball, pulleys shoulder flexion and abduction, and sit to and from stand x5. Patient transferred sit to and from stand SBA x1. Patient tolerated treatment well. Patient displays decreased strength and endurance with sit to and from stand exercise, LAQ, standing hip abduction, standing hip extension, standing hamstring curls, and shoulder external rotation. Patient reports UE and LE fatigued after treatment. Patient was left seated in chair with call light within reach.) Physical Therapy Problem List: Detail (1) Decreased hip strength bilaterally 2) Decreased standing balance 3) Decreased ability to complete prolonged physical activity.) Physical Therapy Goals: 1. The patient's balance will improve to moderate risk for falling category using Tinetti Assessment Tool. 2) The patient will ambulate with appropriate assistive device community distance as required in AFC. 3) Increase LE strength 1/3 muschle grade to increase stability of gait. 4) The patient will tolerate 30 minutes of physical activity with one rest period. Prognosis: Good Physical Therapy Plan: PT 1-2 times a day for gait training, balance and LE strengthening and muscular endurance exercises.
[2018-09-08] MEDS: MELATONIN 5 MG TABLET PO SCH (22:20)
[2018-09-08] MEDS: OLANZAPINE 5MG TABLET PO SCH (22:20)
[2018-09-08] MEDS: TRAZODONE 50 MG TABLET PO SCH (22:22)
[2018-09-08] MEDS: ATORVASTATIN 20 MG TABLET PO SCH (22:22)
[2018-09-08] MEDS: ACETAMINOPHEN 325 MG TAB PO PRN (22:47)
[2018-09-09] MEDS: SODIUM CHLORIDE NASAL SPRAY SCH ×6 (02:04→21:04)
[2018-09-09] MEDS: LEVOTHYROXINE SOD 112 MCG TAB PO SCH (06:20)
[2018-09-09] MEDS: PANTOPRAZOLE SODIUM 40 MG TABLET PO SCH (06:20)
[2018-09-09 06:58] LABS: ABSOLUTE NEUTROPHIL COUNT 12.34; HEMATOCRIT 32.3 % (42.0-52.0); HEMOGLOBIN 9.5 gm/dl (14.0-18.0); LYMPH % 6.1 % (16-45); MEAN CELL VOLUME 98.8 fl (81-97); MEAN CORPUSCULAR HGB CONC 29.4 g/dl (32-36); MEAN PLATELET VOLUME 9.9 fl (7.4-10.4); MONO % 5.6 % (0-9); PLATELET COUNT 356 K/uL (130-400); RED BLOOD COUNT 3.27 M/uL (4.40-5.70); RED CELL DISTRIBUTION WIDTH 15.6 % (11.5-14.5)
[2018-09-09 07:11] LABS: CREATININE 1.5 mg/dL (0.7-1.2)
[2018-09-09 09:48] LABS: HYPOCHROMIA 1+
[2018-09-09] MEDS: POTASSIUM CHLORIDE 10 MEQ TAB PO SCH (09:50)
[2018-09-09] MEDS: DILTIAZEM HCL 120 MG ER CAPSULE PO SCH (09:50)
[2018-09-09] MEDS: ASPIRIN 81 MG CHEWABLE TABLET PO SCH (09:50)
[2018-09-09] MEDS: FUROSEMIDE 20 MG TABLET PO SCH (09:50)
[2018-09-09] MEDS: PREDNISONE 20 MG TAB PO SCH ×2 (09:50→17:54)
[2018-09-09] MEDS: METOPROLOL TART 50 MG TABLET PO SCH ×2 (09:50→21:11)
[2018-09-09] MEDS: AZITHROMYCIN 500 MG TABLET PO SCH (09:51)
[2018-09-09] MEDS: CLOPIDOGREL 75MG TABLET PO SCH (09:51)
[2018-09-09] MEDS: POLYETHYLENE GLY 17 GM PACKET PO SCH ×2 (09:54→21:07)
[2018-09-09] MEDS: [UNRECOGNIZED DRUG - OTHER] TOP SCH ×2 (09:54→21:07)
[2018-09-09] MEDS: PETROLATUM TOP SCH ×2 (09:54→21:07)
--- NOTE | 2018-09-09 10:22 | Physical Therapy Tx Note ---
Physical Therapy Tx Note - Treatment Note Tolerated: Good Total Time Spent With Patient: 35 Physical Therapy Tx Note: Detail (Patient was reclined in bed upon WARP TENSION TESTER arrival. Patient states feeling good today. Patient transferred supine to sit independently. Patient doffed shirt with assistance, donned shirt independently. Patient doffed and donned pants independently. Patient donned shoes independently, needed assistance to tie shoes. Patient displays shortness of breath with dressing. Patient transferred sit to and from stand SBA x1. Patient ambulated 52 feet with four wheeled walker SBA x1. Patient transferred sit to and from stand SBA x1. Patient performed the Nustep L1 x8 minutes seat 11, arms 11. Patient transferred sit to and from stand x2 SBA x1. Patient performed the following exercises in parallel bars marching x4 lengths, sidestepping x2 lengths each, and butt kicks x4 lengths. Patient required standing rest break and seated break with standing exercises due to fatigue and shortness of breath. Patient performed LAQ x10 bilateral and adductor squeezes x15 reps seated in wheelchair. Patient transferred sit to and from stand SBA x1. Patient reports feeling tired after treatment. Patient was left seated on edge of bed with nurse in room.) Physical Therapy Problem List: Detail (1) Decreased hip strength bilaterally 2) Decreased standing balance 3) Decreased ability to complete prolonged physical activity.) Physical Therapy Goals: 1. The patient's balance will improve to moderate risk for falling category using Tinetti Assessment Tool. 2) The patient will ambulate with appropriate assistive device community distance as required in AFC. 3) Increase LE strength 1/3 muschle grade to increase stability of gait. 4) The patient will tolerate 30 minutes of physical activity with one rest period. Prognosis: Good Physical Therapy Plan: PT 1-2 times a day for gait training, balance and LE strengthening and muscular endurance exercises.
--- NOTE | 2018-09-09 14:14 | Physical Therapy Tx Note ---
Physical Therapy Tx Note - Treatment Note Tolerated: Good Total Time Spent With Patient: 30 Physical Therapy Tx Note: Detail (Patient was reclined in bed upon DIRECTOR MBA arrival. Patient states he's tired this afternoon. Patient transferred supine to sitting independently. Patient transferred sit to and from stand SBA x1. Patient ambulated 14 feet with four wheeled walker SBA x1. Patient transferred sit to and from stand SBA x1. Patient performed the following exercises seated in chair x10-20 reps each: marching, LAQ, isometric hamstring sets, isometric hip abduction, adductor squeezes, glut squeezes, abdominal isometrics, heel raises, and toe raises. Patient tolerated treatment well. Patient displays shortness of breath with ambulation, and with some seated exercises. Patient reports feeling tired after treatment. Patient was left seated in chair with call light within reach.) Physical Therapy Problem List: Detail (1) Decreased hip strength bilaterally 2) Decreased standing balance 3) Decreased ability to complete prolonged physical activity.) Physical Therapy Goals: 1. The patient's balance will improve to moderate risk for falling category using Tinetti Assessment Tool. 2) The patient will ambul ate with appropriate assistive device community distance as required in AFC. 3) Increase LE strength 1/3 muschle grade to increase stability of gait. 4) The patient will tolerate 30 minutes of physical activity with one rest period. Prognosis: Good Physical Therapy Plan: PT 1-2 times a day for gait training, balance and LE strengthening and muscular endurance exercises.
[2018-09-09] MEDS: MELATONIN 5 MG TABLET PO SCH (21:04)
[2018-09-09] MEDS: ATORVASTATIN 20 MG TABLET PO SCH (21:05)
[2018-09-09] MEDS: OLANZAPINE 5MG TABLET PO SCH (21:06)
[2018-09-09] MEDS: TRAZODONE 50 MG TABLET PO SCH (21:06)
[2018-09-09] MEDS: ACETAMINOPHEN 325 MG TAB PO PRN (21:06)
[2018-09-10] MEDS: SODIUM CHLORIDE NASAL SPRAY SCH ×7 (02:46→21:15)
[2018-09-10] MEDS: PANTOPRAZOLE SODIUM 40 MG TABLET PO SCH (06:11)
[2018-09-10] MEDS: LEVOTHYROXINE SOD 112 MCG TAB PO SCH (06:11)
[2018-09-10] MEDS: FUROSEMIDE 20 MG TABLET PO SCH (10:32)
[2018-09-10] MEDS: AZITHROMYCIN 500 MG TABLET PO SCH (10:32)
[2018-09-10] MEDS: DILTIAZEM HCL 120 MG ER CAPSULE PO SCH (10:32)
[2018-09-10] MEDS: CLOPIDOGREL 75MG TABLET PO SCH (10:32)
[2018-09-10] MEDS: ASPIRIN 81 MG CHEWABLE TABLET PO SCH (10:32)
[2018-09-10] MEDS: METOPROLOL TART 50 MG TABLET PO SCH ×2 (10:32→21:14)
[2018-09-10] MEDS: PETROLATUM TOP SCH ×2 (10:38→21:15)
[2018-09-10] MEDS: [UNRECOGNIZED DRUG - OTHER] TOP SCH ×2 (10:38→21:15)
[2018-09-10] MEDS: PREDNISONE 20 MG TAB PO SCH ×2 (10:39→17:33)
[2018-09-10] MEDS: POLYETHYLENE GLY 17 GM PACKET PO SCH ×2 (10:39→21:15)
--- NOTE | 2018-09-10 10:45 | Physical Therapy Tx Note ---
Physical Therapy Tx Note - Treatment Note Tolerated: Good Total Time Spent With Patient: 50 Physical Therapy Tx Note: Detail (The patient had increased shortness of breath this am. Patient was up in chair and PT assisted patient with combing and wetting down his hair. Patient also had increased complaints of R shoulder pain. The patient ambulated with front wheeled walker a distance of 67 feet x 1. The patient was taken via wheelchair to Rehab department. The patient completed the following exercises: Nu step x 11 minutes, no resistance, in parallell bars marching 4 lengths, side stepping 4 lengths, step ups , hip flexion, hip extension, hip abduction, toe raises and heel raises all x 10 reps; seated with 2# LAQ, green band hip abduction and hamstring curls all x 10 reps, and hip adductor squeezes x 20 reps. The patient was returned to room. The patient ambu lated with increased distance this am. The patient had some difficulty with sit to and from stand transfer from wheelchair due Shoulder soreness. Patient will not be seen this pm due to an appointment.) Physical Therapy Problem List: Detail (1) Decreased hip strength bilaterally 2) Decreased standing balance 3) Decreased ability to complete prolonged physical activity.) Physical Therapy Goals: 1. The patient's balance will improve to moderate risk for falling category using Tinetti Assessment Tool. 2) The patient will ambulate with appropriate assistive device community distance as required in AFC. 3) Increase LE strength 1/3 muschle grade to increase stability of gait. 4) The patient will tolerate 30 minutes of physical activity with one rest period. Physical Therapy Plan: PT 1-2 times a day for gait training, balance and LE strengthening and muscular endurance exercises.
--- NOTE | 2018-09-10 12:04 | Physician Progress Note ---
Subjective - Date Date of Progress Note: 09/10/18 - Admitting Diagnosis Diagnosis: deconditioning due to heart failure. left epistaxis requiring cautery of the left sphenopalatine artery for persistent posterior epistaxis. CAD. CHF. SSS with pacemaker - Subjective Nursing Care Plan Problem List Activity Intolerance (Swing Bed) Start: 08/30/18 19:05 Freq: Status: Active Protocol: Created 08/30/18 19:05 [facility] (Rec: 08/30/18 19:05 [facility] [id number]) Altered Thought Process (Fall Risk) Start: 08/31/18 10:01 Freq: Status: Active Protocol: Created 08/31/18 10:01 [facility] (Rec: 08/31/18 10:01 [facility] [id number]) Impaired Mobility (Fall Risk) Start: 08/31/18 10:01 Freq: Status: Active Protocol: Created 08/31/18 10:01 [facility] (Rec: 08/31/18 10:01 [facility] [id number]) Knowledge Deficit (Swing Bed) Start: 08/30/18 19:05 Freq: Status: Active Protocol: Created 08/30/18 19:05 [facility] (Rec: 08/30/18 19:05 [facility] [id number]) Pain (Swing Bed) Start: 08/30/18 19:05 Freq: Status: Active Protocol: Created 08/30/18 19:05 [facility] (Rec: 08/30/18 19:05 [facility] [id number]) Risk for Injury (Fall Risk) Start: 08/31/18 10:01 Freq: Status: Active Protocol: Created 08/31/18 10:01 [facility] (Rec: 08/31/18 10:01 [facility] [id number]) Subjective: 09/10/18: Patient A&O x 4, sitting comfortably in chair. Patient denies symptoms at rest, continues to have dyspnea with exertion. Has been improving with strength and endurance with PT/OT. Previously noted pleural effusion continues to be monitored, no worsening of SOB, VS remain stable, no need for supplemental oxygen at this time. Patient followed up with ENT earlier this week, no nilesh tional treatment needed for epistaxis at this time. - Subjective Detail Comment: No additional complaints except as noted below General - Cognitive Patterns Speech: Normal Thought Process: Intact Thought Content: Normal - Communication Select best description of speech pattern: Clear Speech Ability to express ideas and wants: Understood Understanding verbal content: Understands - Mood and Behavior Patterns Appearance: Well Groomed Mood: Normal, Irritable Attitude: Cooperative Motor Activity: Calm Affect: Appropriate Hallucinations: Denies - Physical Functioning Activity Level: Up with assist x1 Turning: Self ad hope ROM Ability: Moves all extremities Assistive Devices: 4 Wheel Walker Activity Level Comment: pt's own walker. walker tagged with pt id. [ End ] Ambulation Ability: Needs Assist Bed Mobility: Independent Transfer Ability: Needs Assist Bathing Ability: Independent Personal Hygiene: Independent Dressing Ability: Independent Eating (Feeding) Ability: Independent Toileting Ability: Independent Administer Own Medication: Independent - Continence Bowel Pattern: Normal for Patient Bladder Pattern: Normal Meds/Allergies - Allergies Allergies Allergy/AdvReac Type Severity Reaction Status Date / Time No Known Drug Allergies Allergy Verified 08/14/18 12:07 - Active Medications Current Medications Acetaminophen (Tylenol 325mg) 650 mg PO Q6H PRN PRN Reason: PAIN - MILD (1-4) Last Admin: 09/09/18 21:06 Dose: 650 mg Documented by: Albuterol Sulfate (Albuterol Sulfate) 2.5 mg INH RESP.Q4H PRN PRN Reason: DIFFICULTY IN BREATHING Last Admin: 09/06/18 22:14 Dose: 2.5 mg Documented by: Aspirin (Aspirin Chewable) 81 mg PO DAILY [facility] Last Admin: 09/10/18 10:32 Dose: 81 mg Documented by: Atorvastatin Calcium (Lipitor) 20 mg PO QHS [facility] Last Admin: 09/09/18 21:05 Dose: 20 mg Documented by: Azithromycin (Zithromax) 500 mg PO DAILY [facility] Stop: 09/12/18 10:01 Last Admin: 09/10/18 10:32 Dose: 500 mg Documented by: Benzonatate (Tessalon) 100 mg PO TID PRN PRN Reason: COUGH Bisacodyl (Dulcolax) 10 mg RC BID PRN PRN Reason: CONSTIPATION Clopidogrel Bisulfate (Plavix) 75 mg PO DAILY [facility] Last Admin: 09/10/18 10:32 Dose: 75 mg Documented by: Diltiazem HCl (Cardizem Cd) 120 mg PO DAILY [facility] Last Admin: 09/10/18 10:32 Dose: 120 mg Documented by: Furosemide (Lasix) 20 mg PO DAILY [facility] Last Admin: 09/10/18 10:32 Dose: 20 mg Documented by: Levothyroxine Sodium (Synthroid) 112 mcg PO DAILYTHY [facility] Last Admin: 09/10/18 06:11 Dose: 112 mcg Documented by: Magnesium Hydroxide (Milk Of Magnesium) 30 ml PO DAILY PRN PRN Reason: INDIGESTION Last Admin: 09/08/18 08:15 Dose: 30 ml Documented by: Melatonin (Melatonin) 2.5 mg PO QHS [facility] Last Admin: 09/09/18 21:04 Dose: 2.5 mg Documented by: Metoprolol Tartrate (Lopressor) 50 mg PO BID [facility] Last Admin: 09/10/18 10:32 Dose: 50 mg Documented by: Nitroglycerin (Nitrostat 0.4mg) 0.4 mg SL Q5MIN PRN PRN Reason: CHEST PAIN Olanzapine (Zyprexa) 5 mg PO QHS [facility] Last Admin: 09/09/18 21:06 Dose: 5 mg Documented by: Pantoprazole Sodium (Protonix) 40 mg PO DAILYAC [facility] Last Admin: 09/10/18 06:11 Dose: 40 mg Documented by: Petrolatum (Secura Oint) 2 gm TOP BID [facility] Last Admin: 09/10/18 10:38 Dose: 2 gm Documented by: Polyethylene Glycol (Miralax) 17 gm PO BID [facility] Last Admin: 09/10/18 10:39 Dose: Not Given Documented by: Potassium Chloride (Klor-Con) 10 meq PO DAILY [facility] Last Admin: 09/09/18 09:50 Dose: 10 meq Documented by: Prednisone (Prednisone 20mg) 20 mg PO BIDWM [facility] Stop: 09/11/18 08:01 Last Admin: 09/10/18 10:39 Dose: 20 mg Documented by: Sodium Chloride ([place] Nasal) 0.5 ml NA Q3H [facility] Last Admin: 09/10/18 10:39 Dose: 0.5 ml Documented by: Trazodone HCl (Desyrel) 25 mg PO QHS [facility] Last Admin: 09/09/18 21:06 Dose: 25 mg Documented by: Objective - Vital Signs Vital Signs: Vital Signs - Last 24 Hrs Temp Pulse Resp BP Pulse Ox 09/10/18 08:00 97.5 F L 75 16 119/61 98 09/09/18 20:00 97.7 F 82 22 130/77 97 - General General Appearance: Alert, Oriented x3, Cooperative, No acute distress - Head Head exam: Normal inspection - Eye Eye exam: Normal appearance, PERRL Pupils: Normal accommodation - ENT ENT exam: Normal exam, Mucous membranes moist, Normal external ear exam, Normal orophraynx Ear exam: Normal external inspection. negative: External canal tenderness Nasal Exam: Normal inspection. negative: Discharge, Sinus tenderness Mouth exam: Normal external inspection, Tongue normal Teeth exam: Normal inspection. negative: Dental caries Throat exam: Normal inspection. negative: Tonsillar erythema, Tonsillar exudate - Neck Neck exam: Normal inspection, Full ROM. negative: Tenderness - Respiratory Respiratory exam: Decreased breath sounds (especially on the right side with his pulmonary effusion). negative: Respiratory distress - Cardiovascular Cardiovascular Exam: Regular rate, Normal rhythm, Normal heart sounds Peripheral Pulses: 2+: Radial (R), Radial (L), Dorsalis Pedis (R), Dorsalis Pedis (L) - GI/Abdominal GI/Abdominal exam: Soft, Normal bowel sounds. negative: Tenderness - Rectal Rectal exam: Deferred - exam: Deferred - Extremities Extremities exam: Normal inspection, Full ROM, Normal capillary refill, Pedal edema (1+ bilaterally). negative: Tenderness - Back Back exam: Reports: Normal inspection, Full ROM. Denies: Muscle spasm, Rash noted, Tenderness - Neurological Neurological exam: Alert, Oriented X3 - Psychiatric Psychiatric exam: Normal affect, Normal mood - Skin Skin exam: Dry, Intact, Normal color, Warm H&P Results - Labs Result Diagrams: 09/09/18 06:30 09/09/18 06:30 Discharge Potential - Discharge Needs Community Services Used Prior to Admission: Home Health Nurse, Oxygen Therapy, Physical Therapy Patient Discharge Plan Description: Visiting Nurse, AFC/Assisted Living Community Services Needed at Discharge: Home Health Nurse, Physical Therapy Discharge Needs Comment: followed by [facility] - Swing Bed Certification Initial Certification Due: 08/30/18 14 Day Re-Cert Due: 09/13/18 44 Day Re-Cert Due: 10/13/18 74 Day Re-Cert Due: 11/12/18 - Detailed Diagnosis and Plan (1) Physical deconditioning Current Visit: Yes Status: Acute Base Code: R53.81 - OTHER MALAISE Priority: High Comment: 09/10/18: -Physical deconditioning noted due to CHF and multilple hospitalizations recently -Continued progress with PT/OT (2) Pleural effusion Current Visit: No Status: Acute Base Code: J90 - PLEURAL EFFUSION, NOT ELSEWHERE CLASSIFIED Priority: Low Comment: 09/10/18: -Hx of recurrent pleural Effusion, requiring pulmonlogy intervention and drainage -Lasix 20mg daily -RR 16 and 94% on RA -Pulmonlogist contacted (Dr. Miller [phone]), does not recommend further drainage unless SOB progresses -Continue to monitor (3) CHF (congestive heart failure) Current Visit: No Status: Acute Qualifiers: Heart failure type: systolic Heart failure chronicity: unspecified Qualified Code(s): I50.20 - Unspecified systolic (congestive) heart failure Base Code: I50.9 - HEART FAILURE, UNSPECIFIED Priority: High Comment: 09/10/18: -Pro-BNP: 14,000 on 08/18 -lasix 20mg daily -Potassium 5.0, holding daily potassium supplement x 2 days, will recheck potassium at that time (4) Epistaxis Current Visit: No Status: Acute Base Code: R04.0 - EPISTAXIS Priority: Medium Comment: 09/10/18: -Recurrent epistaxis requiring ENT intervention and cauderization -No symptoms at this time -ENT follow-up 09/08/18 with no further interventions recommended (5) DVT prophylaxis Current Visit: No Status: Acute Base Code: [id number] - Comment: 09/10/18 -Holding additional anticoagulation due to recent epistaxis requiring ENT intervention -Continue Plavix and ASA (6) Full code status Current Visit: No Status: Acute Base Code: Z78.9 - OTHER SPECIFIED HEALTH STATUS Comment: 09/10/18: -Full Code this admission
[2018-09-10] MEDS: ALBUTEROL SULFATE (0.083%) 2.5 MG/3 ML NEB INH PRN (18:14)
[2018-09-10] MEDS ORDERED: FUROSEMIDE 20 MG TABLET PO ONE (18:41)
[2018-09-10] MEDS: TRAZODONE 50 MG TABLET PO SCH (21:11)
[2018-09-10] MEDS: OLANZAPINE 5MG TABLET PO SCH (21:12)
[2018-09-10] MEDS: MELATONIN 5 MG TABLET PO SCH (21:13)
[2018-09-10] MEDS: ATORVASTATIN 20 MG TABLET PO SCH (21:13)
[2018-09-11] MEDS: SODIUM CHLORIDE NASAL SPRAY SCH ×7 (02:56→20:53)
[2018-09-11] MEDS: PANTOPRAZOLE SODIUM 40 MG TABLET PO SCH (06:11)
[2018-09-11] MEDS: LEVOTHYROXINE SOD 112 MCG TAB PO SCH (06:11)
[2018-09-11 06:33] LABS: CREATININE 1.4 mg/dL (0.7-1.2)
[2018-09-11] MEDS: PREDNISONE 20 MG TAB PO SCH (08:15)
[2018-09-11] MEDS: AZITHROMYCIN 500 MG TABLET PO SCH (09:09)
[2018-09-11] MEDS: CLOPIDOGREL 75MG TABLET PO SCH (09:09)
[2018-09-11] MEDS: DILTIAZEM HCL 120 MG ER CAPSULE PO SCH (09:09)
[2018-09-11] MEDS: [UNRECOGNIZED DRUG - OTHER] TOP SCH ×2 (09:10→21:31)
[2018-09-11] MEDS: PETROLATUM TOP SCH ×2 (09:10→21:31)
[2018-09-11] MEDS: ASPIRIN 81 MG CHEWABLE TABLET PO SCH (09:10)
[2018-09-11] MEDS: FUROSEMIDE 20 MG TABLET PO SCH (09:10)
[2018-09-11] MEDS: METOPROLOL TART 50 MG TABLET PO SCH ×2 (09:10→21:00)
[2018-09-11] MEDS: POLYETHYLENE GLY 17 GM PACKET PO SCH ×2 (09:11→21:29)
[2018-09-11] MEDS: POTASSIUM CHLORIDE 10 MEQ TAB PO SCH (09:12)
[2018-09-11] MEDS: ALBUTEROL SULFATE (0.083%) 2.5 MG/3 ML NEB INH PRN (15:41)
[2018-09-11] MEDS: OLANZAPINE 5MG TABLET PO SCH ×2 (20:42→21:32)
[2018-09-11] MEDS: MELATONIN 5 MG TABLET PO SCH ×2 (20:42→21:31)
[2018-09-11] MEDS: ATORVASTATIN 20 MG TABLET PO SCH ×2 (20:43→21:32)
[2018-09-11] MEDS: TRAZODONE 50 MG TABLET PO SCH ×2 (20:43→21:30)
[2018-09-11] MEDS: ACETAMINOPHEN 325 MG TAB PO PRN (20:50)
[2018-09-12] MEDS: SODIUM CHLORIDE NASAL SPRAY SCH ×7 (06:00→21:55)
[2018-09-12] MEDS: LEVOTHYROXINE SOD 112 MCG TAB PO SCH (07:34)
[2018-09-12] MEDS: PANTOPRAZOLE SODIUM 40 MG TABLET PO SCH (07:34)
[2018-09-12] MEDS: DILTIAZEM HCL 120 MG ER CAPSULE PO SCH (10:00)
[2018-09-12] MEDS: FUROSEMIDE 20 MG TABLET PO SCH (10:00)
[2018-09-12] MEDS: CLOPIDOGREL 75MG TABLET PO SCH (10:00)
[2018-09-12] MEDS: ASPIRIN 81 MG CHEWABLE TABLET PO SCH (10:00)
[2018-09-12] MEDS: METOPROLOL TART 50 MG TABLET PO SCH ×2 (10:00→21:53)
[2018-09-12] MEDS: POLYETHYLENE GLY 17 GM PACKET PO SCH ×2 (10:01→21:58)
[2018-09-12] MEDS: AZITHROMYCIN 500 MG TABLET PO SCH (10:01)
[2018-09-12] MEDS: PETROLATUM TOP SCH ×2 (10:01→21:55)
[2018-09-12] MEDS: [UNRECOGNIZED DRUG - OTHER] TOP SCH ×2 (10:01→21:55)
[2018-09-12] MEDS: ALBUTEROL SULFATE (0.083%) 2.5 MG/3 ML NEB INH PRN ×2 (10:07→13:18)
[2018-09-12] MEDS: LORAZEPAM 0.5 MG TABLET PO PRN ×2 (12:26→21:54)
[2018-09-12] MEDS ORDERED: FUROSEMIDE 20 MG TABLET PO ONE (16:00)
[2018-09-12] MEDS: ATORVASTATIN 20 MG TABLET PO SCH (21:52)
[2018-09-12] MEDS: TRAZODONE 50 MG TABLET PO SCH (21:52)
[2018-09-12] MEDS: MELATONIN 5 MG TABLET PO SCH (21:53)
[2018-09-12] MEDS: OLANZAPINE 5MG TABLET PO SCH (21:54)
[2018-09-12] MEDS: ACETAMINOPHEN 325 MG TAB PO PRN (21:57)
[2018-09-13] MEDS: PANTOPRAZOLE SODIUM 40 MG TABLET PO SCH (06:27)
[2018-09-13] MEDS: SODIUM CHLORIDE NASAL SPRAY SCH ×9 (06:34→23:40)
[2018-09-13] MEDS: LEVOTHYROXINE SOD 112 MCG TAB PO SCH (06:37)
[2018-09-13] MEDS: FUROSEMIDE 20 MG TABLET PO SCH (09:20)
[2018-09-13] MEDS: METOPROLOL TART 50 MG TABLET PO SCH ×2 (09:20→21:18)
[2018-09-13] MEDS: CLOPIDOGREL 75MG TABLET PO SCH (09:20)
[2018-09-13] MEDS: ASPIRIN 81 MG CHEWABLE TABLET PO SCH (09:20)
[2018-09-13] MEDS: DILTIAZEM HCL 120 MG ER CAPSULE PO SCH (09:20)
[2018-09-13] MEDS: POLYETHYLENE GLY 17 GM PACKET PO SCH ×2 (09:21→21:28)
[2018-09-13] MEDS: [UNRECOGNIZED DRUG - OTHER] TOP SCH ×2 (09:21→21:28)
[2018-09-13] MEDS: PETROLATUM TOP SCH ×2 (09:21→21:28)
--- NOTE | 2018-09-13 10:59 | Physical Therapy Tx Note ---
Physical Therapy Tx Note - Treatment Note Tolerated: Fair Total Time Spent With Patient: 25 Physical Therapy Tx Note: Detail (The patient complained of difficulty breathing today. The patient continues to c/o R shoulder pain. The patient was in chair when PT arrived and exhibited shortness of breath and required verbal cue pursed lip breathing. The patient required minimal assist with lower body dressing. The patient ambulated with 4 wheeled walker a distance of 35 feet x 2 with supervision of safety. The patient was taken to Rehab Dept. The patient completed the following: Nu step x 8 min with 2 rest periods due to shortness of breath, balance exercises in the parallel bars perturbations with varying bases of support. The patient required frequent rest periods today due to shortness of breath. O2 sat levels decreased to as low as 87 with exercises and improved to 90-93 with pursed lip breathing techniques within 15 seconds. The patient was returned to room with call light within place.) Physical Therapy Problem List: Detail (1) Decreased hip strength bilaterally 2) Decreased standing balance 3) Decreased ability to complete prolonged physical activity.) Physical Therapy Goals: 1. The patient's balance will improve to moderate risk for falling category using Tinetti Assessment Tool. 2) The patient will ambulate with appropriate assistive device community distance as required in AFC. 3) Increase LE strength 1/3 muschle grade to increase stability of gait. 4) The patient will tolerate 30 minutes of physical activity with one rest period. Physical Therapy Plan: PT 1-2 times a day for gait training, balance and LE strengthening and muscular endurance exercises.
--- NOTE | 2018-09-13 11:28 | Swing Bed Certification/Recert ---
Initial Certification Due: 08/30/18 14 Day Re-Cert Due: 09/13/18 44 Day Re-Cert Due: 10/13/18 74 Day Re-Cert Due: 11/12/18 CERTIFICATION CERTIFICATION OF PATIENT ADMISSION Required at time of admission. Due: 08/30/18 I certify that SNF services are required to be given on an inpatient basis because of the above named patient's need for group home care on a continuing basis for the condition(s) for which he/she was receiving inpatient hospital services prior to his/her transfer to the SNF. The patient's current needs for skilled care includes: [] Loretat Campuzano, N.P. 09/13/18 RE-CERTIFICATION RE-CERTIFICATION OF PATIENT ADMISSION Required on or before the 14th day. Due: 09/13/18 I certify that that continued SNF inpatient care is necessary for the following reason(s): [deconditioning due to CHF] I estimate that the additional period of SNF inpatient care will be [1-2 weeks] Plans for post-SNF care are: [Other: ] Continued SNF Care is for the same condition(s) for which the patient received inpatient hospital services: [Y/N] Loretta Campuzano, N.P. 09/13/18
--- NOTE | 2018-09-13 12:46 | RADIOLOGY REPORT ---
EXAM: CHEST, TWO VIEWS HISTORY: WORSENING SHORTNESS OF BREATHING. TECHNIQUE: Upright PA and lateral views of the chest were obtained. Comparison: Two views of the chest dated 09/05/18. FINDINGS: A dual lead transvenous cardiac stimulator remains in place via the left subclavian approach with lead tips in the right atrium and right ventricle respectively. There is persistent opacification of the lower right hemithorax consistent with large pleural effusion and underlying air space disease. Pleural stripe thickening is again noted in the right apex consistent with pleural scarring, pleural fluid, or less likely mass. Pleural and parenchymal scarring redemonstrated in the left apex. Left costophrenic angle blunting consistent with small pleural effusion is not significantly changed in the interval. Minor linear scarring versus atelectasis redemonstrated in the left lung base. The heart is likely stable in size. No pulmonary venous hypertension noted. IMPRESSION: 1. STABLE RADIOGRAPHIC APPEARANCE OF THE CHEST GIVEN DIFFERENCES IN TECHNIQUE. 2. LARGE RIGHT BASILAR PLEURAL EFFUSION REDEMONSTRATED WITH UNDERLYING BASILAR AIR SPACE DISEASE. 3. PLEURAL BASED OPACITY IN THE RIGHT APEX REDEMONSTRATED, DISCUSSED ABOVE. 4. SMALL LEFT BASILAR PLEURAL EFFUSION. LINEAR ATELECTASIS VERSUS SCARRING PERSISTS IN THE LEFT LUNG BASE. JOB NUMBER: [id number] [facility]
--- NOTE | 2018-09-13 14:00 | Occupational Therapy Tx Note ---
Occupational Therapy Tx Note - Treatment Note Occupational Therapy Treatment Note: Detail (Pt feeling very short of breath and exhausted this afternoon. He was returning to bed upon OT arrival therefore treatment was held this afternoon.) Occupational Therapy Problem List: Detail (1. Decreased activity tolerance needed for safe and Ind self cares. 2. Decreased Ind with total body showering.) Occupational Therapy Goals: 1. Pt will demonstrate improved activity tolerance to allow safe and Ind self cares. 2. Pt will be safe and Ind with total body showering in sitting and standing. 3. Pt will be safe and Ind with functional mobility needed for ADLs. Occupational Therapy Plan: OT 2-4 days per week to address goals and problem list as above.
[2018-09-13] MEDS: ALPRAZOLAM 0.25 MG TABLET PO PRN ×2 (15:12→23:41)
[2018-09-13] MEDS: ALBUTEROL SULFATE (0.083%) 2.5 MG/3 ML NEB INH PRN (20:40)
[2018-09-13] MEDS: OLANZAPINE 5MG TABLET PO SCH (21:18)
[2018-09-13] MEDS: ACETAMINOPHEN 325 MG TAB PO PRN (21:18)
[2018-09-13] MEDS: ATORVASTATIN 20 MG TABLET PO SCH (21:19)
[2018-09-13] MEDS: TRAZODONE 50 MG TABLET PO SCH (21:21)
[2018-09-13] MEDS: MELATONIN 5 MG TABLET PO SCH (21:22)
[2018-09-14] MEDS: PANTOPRAZOLE SODIUM 40 MG TABLET PO SCH (06:53)
[2018-09-14] MEDS: LEVOTHYROXINE SOD 112 MCG TAB PO SCH (06:53)
[2018-09-14] MEDS: SODIUM CHLORIDE NASAL SPRAY SCH ×3 (07:00→20:41)
[2018-09-14 07:02] LABS: BLOOD UREA NITROGEN 41 mg/dL (8-23); CREATININE 1.2 mg/dL (0.7-1.2); EST GLOMERULAR FILTRATION RATE > 60 mL/min; GLUCOSE,RANDOM 84 mg/dL (74-109)
[2018-09-14] MEDS: ASPIRIN 81 MG CHEWABLE TABLET PO SCH (09:58)
[2018-09-14] MEDS: FUROSEMIDE 20 MG TABLET PO SCH (09:58)
[2018-09-14] MEDS: CLOPIDOGREL 75MG TABLET PO SCH (09:58)
[2018-09-14] MEDS: POLYETHYLENE GLY 17 GM PACKET PO SCH ×3 (09:59→20:47)
[2018-09-14] MEDS: METOPROLOL TART 50 MG TABLET PO SCH ×3 (09:59→21:47)
[2018-09-14] MEDS: DILTIAZEM HCL 120 MG ER CAPSULE PO SCH (09:59)
--- NOTE | 2018-09-14 13:01 | Physician Progress Note ---
Subjective - Date Date of Progress Note: 09/14/18 - Admitting Diagnosis Diagnosis: deconditioning due to heart failure. left epistaxis requiring cautery of the left sphenopalatine artery for persistent posterior epistaxis. CAD. CHF. SSS with pacemaker - Subjective Nursing Care Plan Problem List Activity Intolerance (Swing Bed) Start: 08/30/18 19:05 Freq: Status: Active Protocol: Created 08/30/18 19:05 [facility] (Rec: 08/30/18 19:05 [facility] [place] [id number]) Altered Thought Process (Fall Risk) Start: 08/31/18 10:01 Freq: Status: Active Protocol: Created 08/31/18 10:01 [facility] (Rec: 08/31/18 10:01 [facility] [id number]) Impaired Mobility (Fall Risk) Start: 08/31/18 10:01 Freq: Status: Active Protocol: Created 08/31/18 10:01 [facility] (Rec: 08/31/18 10:01 [facility] [place] [id number]) Knowledge Deficit (Swing Bed) Start: 08/30/18 19:05 Freq: Status: Active Protocol: Created 08/30/18 19:05 [facility] (Rec: 08/30/18 19:05 [facility] [id number]) Pain (Swing Bed) Start: 08/30/18 19:05 Freq: Status: Active Protocol: Created 08/30/18 19:05 [facility] (Rec: 08/30/18 19:05 [facility] [id number]) Risk for Injury (Fall Risk) Start: 08/31/18 10:01 Freq: Status: Active Protocol: Created 08/31/18 10:01 [facility] (Rec: 08/31/18 10:01 [facility] [place] [id number]) Subjective: Reports SOB with activity and that he can't "catch his breath". - Subjective Detail Constitutional: Reports: Weakness Respiratory: Reports: Dyspnea General - Cognitive Patterns Speech: Normal Thought Process: Intact Thought Content: Normal - Communication Select best description of speech pattern: Clear Speech Ability to express ideas and wants: Understood Understanding verbal content: Understands - Mood and Behavior Patterns Appearance: Well Groomed Mood: Normal, Irritable Attitude: Cooperative Motor Activity: Calm Affect: Appropriate Hallucinations: Denies - Physical Functioning Activity Level: Up with assist x1 Turning: With partial assist ROM Ability: Moves all extremities Assistive Devices: 4 Wheel Walker Activity Level Comment: pt's own walker. walker tagged with pt id. [ End ] Ambulation Ability: Dependent Bed Mobility: Independent Transfer Ability: Independent Bathing Ability: Independent Personal Hygiene: Independent Dressing Ability: Independent Eating (Feeding) Ability: Independent Toileting Ability: Independent Administer Own Medication: Independent - Continence Bowel Pattern: No Bowel Movement Bladder Pattern: Normal Meds/Allergies - Allergies Allergies Allergy/AdvReac Type Severity Reaction Status Date / Time No Known Drug Allergies Allergy Verified 08/14/18 12:07 - Active Medications Current Medications Acetaminophen (Tylenol 325mg) 650 mg PO Q6H PRN PRN Reason: PAIN - MILD (1-4) Last Admin: 09/13/18 21:18 Dose: 650 mg Documented by: Albuterol Sulfate (Albuterol Sulfate) 2.5 mg INH RESP.Q4H PRN PRN Reason: DIFFICULTY IN BREATHING Last Admin: 09/13/18 20:40 Dose: 2.5 mg Documented by: Alprazolam (Xanax) 0.25 mg PO Q8H PRN PRN Reason: ANXIETY Last Admin: 09/13/18 23:41 Dose: 0.25 mg Documented by: Aspirin (Aspirin Chewable) 81 mg PO DAILY [facility] Last Admin: 09/14/18 09:58 Dose: 81 mg Documented by: Atorvastatin Calcium (Lipitor) 20 mg PO QHS [facility] Last Admin: 09/13/18 21:19 Dose: 20 mg Documented by: Benzonatate (Tessalon) 100 mg PO TID PRN PRN Reason: COUGH Last Admin: 09/11/18 20:42 Dose: 100 mg Documented by: Bisacodyl (Dulcolax) 10 mg RC BID PRN PRN Reason: CONSTIPATION Clopidogrel Bisulfate (Plavix) 75 mg PO DAILY [facility] Last Admin: 09/14/18 09:58 Dose: 75 mg Documented by: Diltiazem HCl (Cardizem Cd) 120 mg PO DAILY [facility] Last Admin: 09/14/18 09:59 Dose: 120 mg Documented by: Furosemide (Lasix) 20 mg PO DAILY [facility] Last Admin: 09/14/18 09:58 Dose: 20 mg Documented by: Levothyroxine Sodium (Synthroid) 112 mcg [facility] Last Admin: 09/14/18 06:53 Dose: 112 mcg Documented by: Magnesium Hydroxide (Milk Of Magnesium) 30 ml PO DAILY PRN PRN Reason: INDIGESTION Last Admin: 09/08/18 08:15 Dose: 30 ml Documented by: Melatonin (Melatonin) 2.5 mg PO QHS [facility] Last Admin: 09/13/18 21:22 Dose: 2.5 mg Documented by: Metoprolol Tartrate (Lopressor) 50 mg PO BID [facility] Last Admin: 09/14/18 09:59 Dose: 50 mg Documented by: Nitroglycerin (Nitrostat 0.4mg) 0.4 mg SL Q5MIN PRN PRN Reason: CHEST PAIN Olanzapine (Zyprexa) 5 mg PO QHS [facility] Last Admin: 09/13/18 21:18 Dose: 5 mg Documented by: Pantoprazole Sodium (Protonix) 40 mg PO DAILYAC [facility] Last Admin: 09/14/18 06:53 Dose: 40 mg Documented by: Petrolatum (Secura Oint) 2 gm TOP BID [facility] Last Admin: 09/13/18 21:28 Dose: 2 gm Documented by: Polyethylene Glycol (Miralax) 17 gm PO BID [facility] Last Admin: 09/14/18 09:59 Dose: Not Given Documented by: Potassium Chloride (Klor-Con) 10 meq PO DAILY [facility] Last Admin: 09/11/18 09:12 Dose: Not Given Documented by: Sodium Chloride ([place] Nasal) 0.5 ml NA Q3H [facility] Last Admin: 09/14/18 07:00 Dose: 0.5 ml Documented by: Trazodone HCl (Desyrel) 25 mg PO QHS [facility] Last Admin: 09/13/18 21:21 Dose: 25 mg Documented by: Objective - Vital Signs Vital Signs: Vital Signs - Last 24 Hrs Temp Pulse Pulse Resp BP BP Pulse Ox 09/14/18 08:00 97.5 F L 82 15 136/75 96 09/13/18 20:38 82 20 94 L 09/13/18 20:00 98.5 F 93 H 16 132/85 98 - Respiratory Respiratory exam: Decreased breath sounds H&P Results - Labs Result Diagrams: 09/09/18 06:30 09/14/18 06:27 Labs Last 24 Hours: Laboratory Results - last 24 hr 09/14/18 06:27 Sodium 145 Potassium 3.8 Chloride 110 H Carbon Dioxide 26.0 Anion Gap 9.0 BUN 41 H Creatinine 1.2 Estimated GFR > 60 Random Glucose 84 Calcium 8.6 L - Chest X-Ray In Last 90 Days Chest X-Ray Within Last 90 Days: Yes Status: Report reviewed Discharge Potential - Discharge Needs Community Services Used Prior to Admission: Home Health Nurse, Oxygen Therapy, Physical Therapy Patient Discharge Plan Description: Visiting Nurse, AFC/Assisted Living Community Services Needed at Discharge: Home Health Nurse, Physical Therapy Discharge Needs Comment: followed by [facility] - Swing Bed Certification Initial Certification Due: 08/30/18 14 Day Re-Cert Due: 09/13/18 44 Day Re-Cert Due: 10/13/18 74 Day Re-Cert Due: 11/12/18 - Detailed Diagnosis and Plan (1) Physical deconditioning Current Visit: Yes Status: Acute Base Code: R53.81 - OTHER MALAISE Priority: High Comment: 09/14/18: -Physical deconditioning noted due to CHF and multilple hospitalizations recently -Continued progress with PT/OT (2) DVT prophylaxis Current Visit: No Status: Acute Base Code: [id number] - Comment: 09/14/18 -Holding additional anticoagulation due to recent epistaxis requiring ENT intervention -Continue Plavix and ASA (3) Dyspnea Current Visit: No Status: Acute Qualifiers: Dyspnea type: unspecified Qualified Code(s): R06.00 - Dyspnea, unspecified Base Code: R06.00 - DYSPNEA, UNSPECIFIED Comment: 09/14/18 -C/o dyspnea, RR 15 -O2 sats decreased to high 80s during shower this a.m. 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
--- NOTE | 2018-09-14 13:18 | Occupational Therapy Tx Note ---
Occupational Therapy Tx Note - Treatment Note Tolerated: Good Total Time Spent With Patient: 51 (3 ADL) Occupational Therapy Treatment Note: Detail (S: Pt sleeping in bed upon arrival (9:00am), agreeable to therapy but appears lethargic and requires increased time to become alert and bring self to EOB. O: Sit-stand to 4ww with MIN, fxl mobility with 4ww with CGA, MIN for stand-sit to low shower bench for controlled descent. Pt appears SOB, SpO2 89%, AMARA Pandey notified, HR 101. Pt doffs and dons UB with MIN to pull pullover shirt over head, LB with increased time and CGA for standing pant mgmt. Pt showers with MIN overall, assist to wash back of head d/t R shoulder impairement, to wash feet in seated, and CGA for standing to wash brandon area and buttocks. Pt requires 3 rest breaks while showering, initiated by therapist when Pt appearing SOB and overexerted, further education on pacing, self-initiating rest breaks, and deep/pursed lip breathing (PLB). SpO2 decreased to 86% just post shower, Pt recognizes this low reading and self- initiates rest and PLB, AMARA Pandey notified. Fxl amb. with CGA to EOB where Pt takes 2 min rest with 2L O2 NC, SpO2 returns to 94%. Shaves face with electric razor with setup assist at EOB. Pt L leg wounds bleeding throughout session, AMARA Pandey notifed and redressing wounds post Tx. A: Pt reports feeling increased SOB this date with activity and appears more lethargic. P: Continue POC with focus on increased activity tolerance overall and Pt self-initiation of energy conservation strategies.) Occupational Therapy Problem List: Detail (1. Decreased activity tolerance needed for safe and Ind self cares. 2. Decreased Ind with total body showering.) Occupational Therapy Goals: 1. Pt will demonstrate improved activity tolerance to allow safe and Ind self cares. 2. Pt will be safe and Ind with total body showering in sitting and standing. 3. Pt will be safe and Ind with functional mobility needed for ADLs. Occupational Therapy Plan: OT 2-4 days per week to address goals and problem list as above.
--- NOTE | 2018-09-14 13:40 | Physical Therapy Tx Note ---
Physical Therapy Tx Note - Treatment Note Tolerated: Poor Total Time Spent With Patient: 15 Physical Therapy Tx Note: Detail (The patient was sitting on the edge of bed when PT arrived. The patient was on 2 L of O2 and ambulated 25 feet x 2 with a rest period due to shortness of breath. The patient exhibited some confusion in following simple commands ie: turning to sit on seat on walker. The patient requested to lie down after ambulation, refusing further activity. RN was notified of the patient's difficulty with completing PT session.) Physical Therapy Problem List: Detail (1) Decreased hip strength bilaterally 2) Decreased standing balance 3) Decreased ability to complete prolonged physical activity.) Physical Therapy Goals: 1. The patient's balance will improve to moderate risk for falling category using Tinetti Assessment Tool. 2) The patient will ambulate with appropriate assistive device community distance as required in AFC. 3) Increase LE strength 1/3 muscle grade to increase stability of gait. 4) The patient will tolerate 30 minutes of physical activity with one rest period. Physical Therapy Plan: PT 1-2 times a day for gait training, balance and LE strengthening and muscular endurance exercises.
[2018-09-14] MEDS: ALBUTEROL SULFATE (0.083%) 2.5 MG/3 ML NEB INH PRN (20:24)
[2018-09-14] MEDS: [UNRECOGNIZED DRUG - OTHER] TOP SCH (20:40)
[2018-09-14] MEDS: PETROLATUM TOP SCH (20:40)
[2018-09-14] MEDS: ACETAMINOPHEN 325 MG TAB PO PRN (20:41)
[2018-09-14] MEDS: TRAZODONE 50 MG TABLET PO SCH ×2 (20:43→21:48)
[2018-09-14] MEDS: ATORVASTATIN 20 MG TABLET PO SCH ×2 (20:45→21:47)
[2018-09-14] MEDS: MELATONIN 5 MG TABLET PO SCH ×2 (20:46→21:47)
[2018-09-14] MEDS: OLANZAPINE 5MG TABLET PO SCH ×2 (20:46→21:46)
[2018-09-14] MEDS ORDERED: ZINC OXIDE 28.35 GM TUBE TOP PRN (22:00)
[2018-09-14] MEDS ORDERED: ZINC OXIDE 28.35 GM TUBE TOP ONE (22:14)
[2018-09-15] MEDS: SODIUM CHLORIDE NASAL SPRAY SCH ×8 (02:59→22:15)
[2018-09-15] MEDS: LEVOTHYROXINE SOD 112 MCG TAB PO SCH (06:56)
[2018-09-15] MEDS: PANTOPRAZOLE SODIUM 40 MG TABLET PO SCH (06:56)
[2018-09-15] MEDS: [UNRECOGNIZED DRUG - OTHER] TOP SCH ×3 (07:50→22:15)
[2018-09-15] MEDS: PETROLATUM TOP SCH ×3 (07:50→22:15)
[2018-09-15] MEDS: METOPROLOL TART 50 MG TABLET PO SCH ×2 (10:31→22:15)
[2018-09-15] MEDS: POTASSIUM CHLORIDE 10 MEQ TAB PO SCH ×3 (10:31→17:14)
[2018-09-15] MEDS: DILTIAZEM HCL 120 MG ER CAPSULE PO SCH (10:32)
[2018-09-15] MEDS: FUROSEMIDE 20 MG TABLET PO SCH ×2 (10:32→17:11)
[2018-09-15] MEDS: ASPIRIN 81 MG CHEWABLE TABLET PO SCH (10:32)
[2018-09-15] MEDS: CLOPIDOGREL 75MG TABLET PO SCH (10:32)
--- NOTE | 2018-09-15 12:22 | Occupational Therapy Tx Note ---
Occupational Therapy Tx Note - Treatment Note Tolerated: Good Total Time Spent With Patient: 65 (1 ADL, 2 TE, 1 TA) Occupational Therapy Treatment Note: Detail (S:Pt supine in bed, agreeable to OT Tx, refusing a breathing treatment from respiratory but agreeable to one later after therapy. O: Pt on 2L O2 NC, at rest SpO2 99%, HR 80 maintained >96%, HR increased to 101 throughout Tx. Pt reports SOB and L abdomen pain decreased since this morning. MIN assist LB dressing Pt doff/dons L sock and shoe with assist to tie laces, assist to thread toes over R sock, place foot in shoe, and tie laces. MIN assist to don button up to thread R UE and for buttons. SPT EOB > WC with 4WW CGA and verbal instruction for safe FWW use - locking brakes and always having it in front of self during fxl mob, and for hand placement during TF. Therapist pushes Pt >< therapy gym. Pullys x12 reps each arm to increase and maintain ROM R shoulder and increase UE strength, ball toss x3 min and with beach ball x4 min with 3 rest breaks, reaching within obtainable range with R UE to obtain cones, transfering hands, and stacking them with L hand to increase fxl use with R UE, verbal instruction for technique with exercises and OT monitoring vitals and fatigue, initiating rest breaks. Functional mobility with 4ww ~18 ft x2 CGA and verbal cues for safe technique. No SOB noted throughout Tx. A: Pt tolerates session well this date and appears motivated during therapy, very minimal SOB throughout on 2L O2 NC. Therapist returned Pt to bedroom and notified nursing that he is ready for respiratory breathing Tx. P: Continue POC, monitoring SOB and fatigue, and progress as tolerated.) Occupational Therapy Problem List: Detail (1. Decreased activity tolerance needed for safe and Ind self cares. 2. Decreased Ind with total body showering.) Occupational Therapy Goals: 1. Pt will demonstrate improved activity tolerance to allow safe and Ind self cares. 2. Pt will be safe and Ind with total body showering in sitting and standing. 3. Pt will be safe and Ind with functional mobility needed for ADLs. Prognosis: Good Occupational Therapy Plan: OT 2-4 days per week to address goals and problem list as above.
[2018-09-15] MEDS: ALBUTEROL SULFATE (0.083%) 2.5 MG/3 ML NEB INH PRN ×2 (13:43→23:44)
[2018-09-15] MEDS: POLYETHYLENE GLY 17 GM PACKET PO SCH ×2 (14:29→22:15)
--- NOTE | 2018-09-15 16:17 | Physical Therapy Tx Note ---
Physical Therapy Tx Note - Treatment Note Total Time Spent With Patient: 0 Physical Therapy Tx Note: Detail (Patient refused therapy.) Physical Therapy Problem List: Detail (1) Decreased hip strength bilaterally 2) Decreased standing balance 3) Decreased ability to complete prolonged physical activity.) Physical Therapy Goals: 1. The patient's balance will improve to moderate risk for falling category using Tinetti Assessment Tool. 2) The patient will ambulate with appropriate assistive device community distance as required in AFC. 3) Increase LE strength 1/3 muscle grade to increase stability of gait. 4) The patient will tolerate 30 minutes of physical activity with one rest period. Physical Therapy Plan: PT 1-2 times a day for gait training, balance and LE strengthening and muscular endurance exercises.
[2018-09-15] MEDS: MELATONIN 5 MG TABLET PO SCH (22:13)
[2018-09-15] MEDS: TRAZODONE 50 MG TABLET PO SCH (22:13)
[2018-09-15] MEDS: OLANZAPINE 5MG TABLET PO SCH (22:13)
[2018-09-15] MEDS: ATORVASTATIN 20 MG TABLET PO SCH (22:14)
[2018-09-15] MEDS: ACETAMINOPHEN 325 MG TAB PO PRN (22:19)
[2018-09-16] MEDS: SODIUM CHLORIDE NASAL SPRAY SCH ×8 (01:25→21:56)
[2018-09-16] MEDS: LEVOTHYROXINE SOD 112 MCG TAB PO SCH (06:28)
[2018-09-16] MEDS: PANTOPRAZOLE SODIUM 40 MG TABLET PO SCH (06:29)
[2018-09-16] MEDS: PETROLATUM TOP SCH ×2 (09:27→21:55)
[2018-09-16] MEDS: [UNRECOGNIZED DRUG - OTHER] TOP SCH ×2 (09:27→21:55)
[2018-09-16] MEDS: METOPROLOL TART 50 MG TABLET PO SCH ×2 (09:33→21:50)
[2018-09-16] MEDS: ACETAMINOPHEN 325 MG TAB PO PRN ×2 (09:33→21:49)
[2018-09-16] MEDS: POTASSIUM CHLORIDE 10 MEQ TAB PO SCH (09:33)
[2018-09-16] MEDS: CLOPIDOGREL 75MG TABLET PO SCH (09:33)
[2018-09-16] MEDS: FUROSEMIDE 20 MG TABLET PO SCH ×2 (09:34→15:50)
[2018-09-16] MEDS: ASPIRIN 81 MG CHEWABLE TABLET PO SCH (09:35)
[2018-09-16] MEDS: DILTIAZEM HCL 120 MG ER CAPSULE PO SCH (09:43)
--- NOTE | 2018-09-16 12:50 | Physician Progress Note ---
Subjective - Date Date of Progress Note: 09/17/18 - Admitting Diagnosis Diagnosis: deconditioning due to heart failure. left epistaxis requiring cautery of the left sphenopalatine artery for persistent posterior epistaxis. CAD. CHF. SSS with pacemaker - Subjective Nursing Care Plan Problem List Activity Intolerance (Swing Bed) Start: 08/30/18 19:05 Freq: Status: Active Protocol: Created 08/30/18 19:05 [facility] (Rec: 08/30/18 19:05 [facility] [place] [id number]) Altered Thought Process (Fall Risk) Start: 08/31/18 10:01 Freq: Status: Active Protocol: Created 08/31/18 10:01 [facility] (Rec: 08/31/18 10:01 [facility] [id number]) Impaired Mobility (Fall Risk) Start: 08/31/18 10:01 Freq: Status: Active Protocol: Created 08/31/18 10:01 [facility] (Rec: 08/31/18 10:01 [facility] [place] [id number]) Knowledge Deficit (Swing Bed) Start: 08/30/18 19:05 Freq: Status: Active Protocol: Created 08/30/18 19:05 [facility] (Rec: 08/30/18 19:05 [facility] [id number]) Pain (Swing Bed) Start: 08/30/18 19:05 Freq: Status: Active Protocol: Created 08/30/18 19:05 [facility] (Rec: 08/30/18 19:05 [facility] [id number]) Risk for Injury (Fall Risk) Start: 08/31/18 10:01 Freq: Status: Active Protocol: Created 08/31/18 10:01 [facility] (Rec: 08/31/18 10:01 [facility] [place] [id number]) Subjective: Reports increase SOB. Staff reports desaturating to high 80s with ambulation. Discussed possible need for thoracentesis and possibility of needing to send to [facility] for direct admission to speed up scheduling of procedure. Pt refused to go, stating that he did not want to be admitted to [facility]. Requested that an outpatient appointment be set up and verbalized understanding of having to wait for an appointment. Discussed possibility of respiratory failure and , pt verbalized understanding. Also discussed Full code status. Pt requested to remain a full code at this time. Plans discussed with pt's daughter. - Subjective Detail Comment: No additional complaints except as noted below Respiratory: Reports: Dyspnea General - Cognitive Patterns Speech: Normal Thought Process: Intact Thought Content: Normal - Communication Select best description of speech pattern: Clear Speech Ability to express ideas and wants: Understood Understanding verbal content: Understands - Mood and Behavior Patterns Appearance: Well Groomed Mood: Normal, Irritable Attitude: Cooperative Motor Activity: Calm Affect: Appropriate Hallucinations: Denies - Physical Functioning Activity Level: Up as tolerated, Up with assist x1 Turning: With partial assist ROM Ability: Within Normal Limits, Moves all extremities Assistive Devices: 4 Wheel Walker Activity Level Comment: pt's own walker. walker tagged with pt id. [ End ] Ambulation Ability: Needs Assist Bed Mobility: Needs Assist Transfer Ability: Needs Assist Bathing Ability: Needs Assist Personal Hygiene: Independent Dressing Ability: Independent Eating (Feeding) Ability: Independent Toileting Ability: Independent Administer Own Medication: Independent - Continence Bowel Pattern: No Bowel Movement Bladder Pattern: Normal Meds/Allergies - Allergies Allergies Allergy/AdvReac Type Severity Reaction Status Date / Time No Known Drug Allergies Allergy Verified 08/14/18 12:07 - Active Medications Current Medications Acetaminophen (Tylenol 325mg) 650 mg PO Q6H PRN PRN Reason: PAIN - MILD (1-4) Last Admin: 09/16/18 09:33 Dose: 650 mg Documented by: Albuterol Sulfate (Albuterol Sulfate) 2.5 mg INH RESP.Q4H PRN PRN Reason: DIFFICULTY IN BREATHING Last Admin: 09/15/18 23:44 Dose: 2.5 mg Documented by: Aspirin (Aspirin Chewable) 81 mg PO DAILY [facility] Last Admin: 09/16/18 09:35 Dose: 81 mg Documented by: Atorvastatin Calcium (Lipitor) 20 mg PO QHS [facility] Last Admin: 09/15/18 22:14 Dose: 20 mg Documented by: Benzonatate (Tessalon) 100 mg PO TID PRN PRN Reason: COUGH Last Admin: 09/11/18 20:42 Dose: 100 mg Documented by: Bisacodyl (Dulcolax) 10 mg RC BID PRN PRN Reason: CONSTIPATION Clopidogrel Bisulfate (Plavix) 75 mg PO DAILY [facility] Last Admin: 09/16/18 09:33 Dose: 75 mg Documented by: Diltiazem HCl (Cardizem Cd) 120 mg PO DAILY [facility] Last Admin: 09/16/18 09:43 Dose: 120 mg Documented by: Furosemide (Lasix) 20 mg PO BIDDIUR [facility] Last Admin: 09/16/18 09:34 Dose: 20 mg Documented by: Levothyroxine Sodium (Synthroid) 112 mcg PO DAILYTHY [facility] Last Admin: 09/16/18 06:28 Dose: 112 mcg Documented by: Magnesium Hydroxide (Milk Of Magnesium) 30 ml PO DAILY PRN PRN Reason: INDIGESTION Last Admin: 09/08/18 08:15 Dose: 30 ml Documented by: Melatonin (Melatonin) 2.5 mg PO QHS [facility] Last Admin: 09/15/18 22:13 Dose: 2.5 mg Documented by: Metoprolol Tartrate (Lopressor) 50 mg PO BID [facility] Last Admin: 09/16/18 09:33 Dose: 50 mg Documented by: Nitroglycerin (Nitrostat 0.4mg) 0.4 mg SL Q5MIN PRN PRN Reason: CHEST PAIN Olanzapine (Zyprexa) 5 mg PO QHS [facility] Last Admin: 09/15/18 22:13 Dose: 5 mg Documented by: Pantoprazole Sodium (Protonix) 40 mg PO DAILYAC [facility] Last Admin: 09/16/18 06:29 Dose: 40 mg Documented by: Petrolatum (Secura Oint) 2 gm TOP BID [facility] Last Admin: 09/16/18 09:27 Dose: Not Given Documented by: Polyethylene Glycol (Miralax) 17 gm PO BID [facility] Last Admin: 09/15/18 22:15 Dose: Not Given Documented by: Potassium Chloride (Klor-Con) 10 meq PO DAILY [facility] Last Admin: 09/16/18 09:33 Dose: 10 meq Documented by: Sodium Chloride ([place] Nasal) 0.5 ml NA Q3H [facility] Last Admin: 09/16/18 09:36 Dose: 0.5 ml Documented by: Trazodone HCl (Desyrel) 25 mg PO QHS [facility] Last Admin: 09/15/18 22:13 Dose: 25 mg Documented by: Zinc Oxide (Desitin) 10 gm TOP BID PRN PRN Reason: RASH Last Admin: 09/14/18 22:15 Dose: 1 gm Documented by: Objective - Vital Signs Vital Signs: Vital Signs - Last 24 Hrs Temp Pulse Pulse Resp BP Pulse Ox 09/16/18 10:25 88 18 93 L 09/16/18 08:45 16 93 L 09/15/18 23:45 16 09/15/18 20:00 97 F L 74 18 122/70 94 L 09/15/18 13:43 88 18 - General General Appearance: Alert, Oriented x3, Mild distress - Respiratory Respiratory exam: Accessory muscle use, Decreased breath sounds H&P Results - Labs Result Diagrams: 09/09/18 06:30 09/17/18 06:24 Discharge Potential - Discharge Needs Community Services Used Prior to Admission: Home Health Nurse, Oxygen Therapy, Physical Therapy Patient Discharge Plan Description: Visiting Nurse, AFC/Assisted Living Community Services Needed at Discharge: Home Health Nurse, Physical Therapy Discharge Needs Comment: followed by [facility] - Swing Bed Certification Initial Certification Due: 08/30/18 14 Day Re-Cert Due: 09/13/18 44 Day Re-Cert Due: 10/13/18 74 Day Re-Cert Due: 11/12/18 - Detailed Diagnosis and Plan (1) Dyspnea Current Visit: No Status: Acute Qualifiers: Dyspnea type: unspecified Qualified Code(s): R06.00 - Dyspnea, unspecified Base Code: R06.00 - DYSPNEA, UNSPECIFIED Comment: 09/16/18 -C/o dyspnea, RR 15-18 -92-93% on RA -CXR done on 09/13/18 to evaluate chronic Pleural Effusion which showed no changes -Last thoracentesis on 08/22/18 -Interventional Radiology to do Thoracentesis at [facility] on 09/17/18 in the a.m. -Lasix increased from 20mg daily to BID (2) Physical deconditioning Current Visit: Yes Status: Acute Base Code: R53.81 - OTHER MALAISE Priority: High Comment: 09/16/18: -Physical deconditioning noted due to CHF and multilple hospitalizations recently -Continued progress with PT/OT (3) DVT prophylaxis Current Visit: Yes Status: Acute Base Code: [id number] - Comment: 09/16/18 -Holding additional anticoagulation due to recent epistaxis requiring ENT intervention -Continue Plavix and ASA (4) Full code status Current Visit: Yes Status: Acute Base Code: Z78.9 - OTHER SPECIFIED HEALTH STATUS Comment: 09/16/18: -Full Code this admission
--- NOTE | 2018-09-16 14:17 | Physical Therapy Tx Note ---
Physical Therapy Tx Note - Treatment Note Tolerated: Fair Total Time Spent With Patient: 35 Physical Therapy Tx Note: Detail (Pt sitting up in recliner upon arrival; agreeable to participate w/therapy. Sit to stand at four wheeled walker w/CGA; ambulated out into hallway about 35 feet w/CGA. Rested leaning on wall for a minute, then returned to bedside recliner. Moderately short of breath, recovered after 2-3 minutes rest. Performed 10 reps each: marching, knee e xtension w/yellow t-band, knee flexion w/yellow t-band, hip abduction and adduction w/yellow t-band, ankle plantarflexion w/yellow t-band. Performed 5 reps each of L shoulder flexion, B elbow flexion, B rowing, shoulder IR, ER w/yellow theraband. Agreed to try another walk; ambulated w/four wheeled walker from bedside chair to hallway to next room door (about 20 feet) and back to bed. Assisted to remove shoes and don socks; placed call light and bedside table in reach. Left in bed w/HOB elevated; nrsg arrived in room.) Physical Therapy Problem List: Detail (1) Decreased hip strength bilaterally 2) Decreased standing balance 3) Decreased ability to complete prolonged physical activity.) Physical Therapy Goals: 1. The patient's balance will improve to moderate risk for falling category using Tinetti Assessment Tool. 2) The patient will ambulate with appropriate assistive device community distance as required in AFC. 3) Increase LE strength 1/3 muscle grade to increase stability of gait. 4) The patient will tolerate 30 minutes of physical activity with one rest period. Physical Therapy Plan: PT 1-2 times a day for gait training, balance and LE strengthening and muscular endurance exercises.
[2018-09-16] MEDS: POLYETHYLENE GLY 17 GM PACKET PO SCH ×2 (15:43→21:55)
[2018-09-16] MEDS: TRAZODONE 50 MG TABLET PO SCH (21:51)
[2018-09-16] MEDS: ATORVASTATIN 20 MG TABLET PO SCH (21:51)
[2018-09-16] MEDS: OLANZAPINE 5MG TABLET PO SCH (21:52)
[2018-09-16] MEDS: MELATONIN 5 MG TABLET PO SCH (21:54)
[2018-09-17] MEDS: SODIUM CHLORIDE NASAL SPRAY SCH ×7 (02:21→22:04)
[2018-09-17 07:02] LABS: BLOOD UREA NITROGEN 33 mg/dL (8-23); CREATININE 1.1 mg/dL (0.7-1.2); EST GLOMERULAR FILTRATION RATE > 60 mL/min; GLUCOSE,RANDOM 88 mg/dL (74-109)
[2018-09-17] MEDS: LEVOTHYROXINE SOD 112 MCG TAB PO SCH (07:02)
[2018-09-17] MEDS: PANTOPRAZOLE SODIUM 40 MG TABLET PO SCH (07:02)
[2018-09-17 09:01] LABS: INR 1.1; PROTHROMBIN TIME (PATIENT) 11.4 SECONDS (9.5-12.1)
[2018-09-17] MEDS: DILTIAZEM HCL 120 MG ER CAPSULE PO SCH (09:33)
[2018-09-17] MEDS: FUROSEMIDE 20 MG TABLET PO SCH ×2 (09:33→16:04)
[2018-09-17] MEDS: POTASSIUM CHLORIDE 10 MEQ TAB PO SCH (09:33)
[2018-09-17] MEDS: CLOPIDOGREL 75MG TABLET PO SCH (09:33)
[2018-09-17] MEDS: ASPIRIN 81 MG CHEWABLE TABLET PO SCH (09:33)
[2018-09-17] MEDS: PETROLATUM TOP SCH (09:34)
[2018-09-17] MEDS: POLYETHYLENE GLY 17 GM PACKET PO SCH (09:34)
[2018-09-17] MEDS: METOPROLOL TART 50 MG TABLET PO SCH ×2 (09:34→22:05)
[2018-09-17] MEDS: [UNRECOGNIZED DRUG - OTHER] TOP SCH (09:34)
[2018-09-17] MEDS: MAGNESIUM HYDROXIDE 30 ML UDC PO PRN (09:36)
--- NOTE | 2018-09-17 12:30 | ULTRASOUND REPORT ---
EXAM: ULTRASOUND GUIDED RIGHT THORACENTESIS HISTORY: RECURRENT RIGHT PLEURAL EFFUSION. TECHNIQUE: The procedure for ultrasound guided right thoracentesis was discussed in detail with the patient including risks, alternatives, and possible complications. Informed consent was obtained. A suitable site for catheter placement was determined using ultrasound guidance. The right lower posterior chest was prepped and draped in the usual sterile fashion. The skin and subcutaneous tissues were anesthetized with 5 ml of 1% buffered Lidocaine. A 5 Sammarinese thoracentesis catheter was inserted into the pleural space without difficulty. 800 ml of clear jaye fluid were removed without difficulty. Drainage was stopped when the patient began feeling discomfort. The catheter was removed and hemostasis achieved. The skin was cleansed and bandaged appropriately. The patient tolerated the procedure well and there were no immediate complications. The patient was sent to the X-ray Department for post procedure chest x-ray. IMPRESSION: UNEVENTFUL ULTRASOUND GUIDED RIGHT THORACENTESIS WITH REMOVAL OF 800 ML OF CLEAR JAYE COLORED FLUID. JOB NUMBER: [id number] MTDD
--- NOTE | 2018-09-17 12:34 | RADIOLOGY REPORT ---
EXAM: CHEST, TWO VIEWS HISTORY: STATUS POST RIGHT THORACENTESIS. TECHNIQUE: PA and lateral upright views of the chest were obtained. Comparison: 09/13/18. FINDINGS: There has been interval decrease in size of the right pleural effusion consistent with recent thoracentesis. There is no pneumothorax. A small effusion persists. There is chronic elevation of the right hemidiaphragm with right basilar atelectasis. A tiny left pleural effusion also persists. The lungs are emphysematous. The heart is enlarged. A pacemaker is in place. There is no pulmonary vascular congestion or acute pulmonary infiltrate. IMPRESSION: 1. INTERVAL DECREASE IN SIZE OF THE RIGHT PLEURAL EFFUSION. THERE IS NO PNEUMOTHORAX. 2. PERSISTENT SMALL RIGHT AND TINY LEFT PLEURAL EFFUSIONS. 3. RIGHT BASILAR ATELECTASIS OR CONSOLIDATION. JOB NUMBER: [id number] [facility]
--- NOTE | 2018-09-17 14:08 | Physical Therapy Tx Note ---
Physical Therapy Tx Note - Treatment Note Physical Therapy Tx Note: Detail (PT was held today per RN due to increased res piration rate with ambulation to BR. Patient underwent procedure this am.) Physical Therapy Problem List: Detail (1) Decreased hip strength bilaterally 2) Decreased standing balance 3) Decreased ability to complete prolonged physical activity.) Physical Therapy Goals: 1. The patient's balance will improve to moderate risk for falling category using Tinetti Assessment Tool. 2) The patient will ambulate with appropriate assistive device community distance as required in AFC. 3) Increase LE strength 1/3 muscle grade to increase stability of gait. 4) The patient will tolerate 30 minutes of physical activity with one rest period. Physical Therapy Plan: PT 1-2 times a day for gait training, balance and LE strengthening and muscular endurance exercises.
[2018-09-17] MEDS: ATORVASTATIN 20 MG TABLET PO SCH (22:04)
[2018-09-17] MEDS: MELATONIN 5 MG TABLET PO SCH (22:04)
[2018-09-17] MEDS: ACETAMINOPHEN 325 MG TAB PO PRN (22:05)
[2018-09-17] MEDS: OLANZAPINE 5MG TABLET PO SCH (22:06)
[2018-09-17] MEDS: TRAZODONE 50 MG TABLET PO SCH (22:06)
[2018-09-18] MEDS: SODIUM CHLORIDE NASAL SPRAY SCH ×8 (02:30→21:25)
[2018-09-18] MEDS: LEVOTHYROXINE SOD 112 MCG TAB PO SCH (06:36)
[2018-09-18] MEDS: PANTOPRAZOLE SODIUM 40 MG TABLET PO SCH (06:37)
[2018-09-18] MEDS: CLOPIDOGREL 75MG TABLET PO SCH (09:33)
[2018-09-18] MEDS: DILTIAZEM HCL 120 MG ER CAPSULE PO SCH (09:33)
[2018-09-18] MEDS: ASPIRIN 81 MG CHEWABLE TABLET PO SCH (09:33)
[2018-09-18] MEDS: FUROSEMIDE 20 MG TABLET PO SCH ×2 (09:33→16:29)
[2018-09-18] MEDS: POTASSIUM CHLORIDE 10 MEQ TAB PO SCH (09:33)
[2018-09-18] MEDS: METOPROLOL TART 50 MG TABLET PO SCH ×2 (09:33→21:25)
[2018-09-18] MEDS: ACETAMINOPHEN 325 MG TAB PO PRN (21:23)
[2018-09-18] MEDS: ATORVASTATIN 20 MG TABLET PO SCH (21:23)
[2018-09-18] MEDS: MELATONIN 5 MG TABLET PO SCH (21:23)
[2018-09-18] MEDS: OLANZAPINE 5MG TABLET PO SCH (21:24)
[2018-09-18] MEDS: TRAZODONE 50 MG TABLET PO SCH (21:25)
[2018-09-19] MEDS: SODIUM CHLORIDE NASAL SPRAY SCH ×7 (06:29→20:16)
[2018-09-19] MEDS: PANTOPRAZOLE SODIUM 40 MG TABLET PO SCH (06:30)
[2018-09-19] MEDS: LEVOTHYROXINE SOD 112 MCG TAB PO SCH (06:30)
[2018-09-19] MEDS: DILTIAZEM HCL 120 MG ER CAPSULE PO SCH (09:29)
[2018-09-19] MEDS: POTASSIUM CHLORIDE 10 MEQ TAB PO SCH (09:30)
[2018-09-19] MEDS: METOPROLOL TART 50 MG TABLET PO SCH ×2 (09:30→20:39)
[2018-09-19] MEDS: ASPIRIN 81 MG CHEWABLE TABLET PO SCH (09:30)
[2018-09-19] MEDS: CLOPIDOGREL 75MG TABLET PO SCH (09:30)
[2018-09-19] MEDS: FUROSEMIDE 20 MG TABLET PO SCH ×2 (09:30→15:12)
[2018-09-19] MEDS: ALBUTEROL SULFATE (0.083%) 2.5 MG/3 ML NEB INH PRN (19:24)
[2018-09-19] MEDS ORDERED: ALPRAZOLAM 0.25 MG TABLET PO SCH (20:15)
[2018-09-19 21:06] LABS: CREATININE 1.4 mg/dL (0.7-1.2)
[2018-09-19] MEDS: MELATONIN 5 MG TABLET PO SCH (21:10)
[2018-09-19] MEDS: ATORVASTATIN 20 MG TABLET PO SCH (21:10)
[2018-09-19] MEDS: OLANZAPINE 5MG TABLET PO SCH (21:11)
[2018-09-19] MEDS: TRAZODONE 50 MG TABLET PO SCH (21:11)
[2018-09-19] MEDS: ACETAMINOPHEN 325 MG TAB PO PRN (21:12)
[2018-09-20] MEDS: METOPROLOL TART 50 MG TABLET PO SCH ×3 (01:44→22:09)
[2018-09-20] MEDS: SODIUM CHLORIDE NASAL SPRAY SCH ×8 (01:44→22:08)
[2018-09-20] MEDS: LEVOTHYROXINE SOD 112 MCG TAB PO SCH (06:46)
[2018-09-20] MEDS: PANTOPRAZOLE SODIUM 40 MG TABLET PO SCH (06:46)
[2018-09-20] MEDS: DILTIAZEM HCL 120 MG ER CAPSULE PO SCH (09:55)
[2018-09-20] MEDS: POTASSIUM CHLORIDE 10 MEQ TAB PO SCH (09:55)
[2018-09-20] MEDS: CLOPIDOGREL 75MG TABLET PO SCH (09:55)
[2018-09-20] MEDS: ASPIRIN 81 MG CHEWABLE TABLET PO SCH (09:56)
[2018-09-20] MEDS: FUROSEMIDE 20 MG TABLET PO SCH (09:56)
[2018-09-20] MEDS ORDERED: ALPRAZOLAM 0.25 MG TABLET PO ONE (12:30)
[2018-09-20] MEDS: ALBUTEROL SULFATE (0.083%) 2.5 MG/3 ML NEB INH PRN (12:36)
--- NOTE | 2018-09-20 16:11 | Physical Therapy Tx Note ---
Physical Therapy Tx Note - Treatment Note Tolerated: Good Total Time Spent With Patient: 20 Physical Therapy Tx Note: Detail (The patient was in bed when PT arrived. The patient ambulated with 4 wheeled walker a distance of 40 feet x 1 with supervision for safety and shortness of breath ( less then last seen). The patient's balance was retested using Tinetti Assessment Tool and strength was retested. The patient has improved balance and strength.) Physical Therapy Problem List: Detail (1) Decreased hip strength bilaterally 2) Decreased standing balance 3) Decreased ability to complete prolonged physical activity.) Physical Therapy Goals: 1. The patient's balance will improve to moderate risk for falling category using Tinetti Assessment Tool. 2) The patient will ambulate with appropriate assistive device community distance as required in AFC. 3) Increase LE strength 1/3 muscle grade to increase stability of gait. 4) The patient will tolerate 30 minutes of physical activity with one rest period. Physical Therapy Plan: PT 1-2 times a day for gait training, balance and LE strengthening and muscular endurance exercises.
[2018-09-20] MEDS ORDERED: FUROSEMIDE 20 MG TABLET PO SCH (17:00)
[2018-09-20] MEDS: ACETAMINOPHEN 325 MG TAB PO PRN (22:08)
[2018-09-20] MEDS: ATORVASTATIN 20 MG TABLET PO SCH (22:09)
[2018-09-20] MEDS: OLANZAPINE 5MG TABLET PO SCH (22:09)
[2018-09-20] MEDS: TRAZODONE 50 MG TABLET PO SCH (22:10)
[2018-09-20] MEDS: MELATONIN 5 MG TABLET PO SCH (22:10)
[2018-09-21] MEDS: SODIUM CHLORIDE NASAL SPRAY SCH ×4 (01:23→10:00)
--- NOTE | 2018-09-21 05:02 | RADIOLOGY REPORT ---
EXAM: CHEST, SINGLE AP PORTABLE VIEW HISTORY: PATIENT HAS SHORTNESS OF BREATH. TECHNIQUE: A single AP portable view of the chest was provided along with the comparison chest x-ray dated 09/17/18. FINDINGS: The right cardiac border is ill defined. There is a moderate to large right posterolateral lobe atelectasis and/or infiltrate with pleural effusion which appears similar to the prior examination. Moderate left sided posterior lower lobe passive atelectasis and/or infiltrate is increased with respect to the prior examination. Moderate left sided pleural effusion also appears slightly increased with respect to the prior examination. There is no pneumothorax identified. The left anterior chest wall pacemaker is unchanged with respect to the prior examination. IMPRESSION: MODERATE TO LARGE RIGHT POSTERIOR LOWER LOBE CONSOLIDATION WITH PLEURAL EFFUSION APPEARS UNCHANGED. MODERATE LEFT SIDED PLEURAL EFFUSION AND PASSIVE LOWER LOBE ATELECTASIS AND/OR INFILTRATE APPEARS MORE PROMINENT THAN ON THE PRIOR EXAMINATION. FOLLOW-UP PA AND LATERAL VIEWS OF THE CHEST CAN BE OBTAINED UNTIL RESOLUTION OF FINDINGS. JOB NUMBER: [id number] MTDD
[2018-09-21] MEDS: LEVOTHYROXINE SOD 112 MCG TAB PO SCH (08:01)
[2018-09-21] MEDS: PANTOPRAZOLE SODIUM 40 MG TABLET PO SCH (08:01)
[2018-09-21] MEDS: METOPROLOL TART 50 MG TABLET PO SCH (09:59)
[2018-09-21] MEDS: FUROSEMIDE 20 MG TABLET PO SCH (09:59)
[2018-09-21] MEDS: DILTIAZEM HCL 120 MG ER CAPSULE PO SCH (09:59)
[2018-09-21] MEDS: CLOPIDOGREL 75MG TABLET PO SCH (09:59)
[2018-09-21] MEDS: ASPIRIN 81 MG CHEWABLE TABLET PO SCH (09:59)
[2018-09-21] MEDS: POTASSIUM CHLORIDE 10 MEQ TAB PO SCH (09:59)
--- NOTE | 2018-09-21 10:19 | Discharge Summary ---
Providers Discharge Summary Date: 09/21/18 Date of admission: 08/30/18 18:50 Attending physician: PAT DOWNS Primary care physician: JANET VILLA M.D. Consults: Consult Orders 08/30/18 19:09 Consult - Case Management Now Comment: Reason For Exam: swing bed admission, discharge planning Physical Exam - Vital Signs Vital Signs: Vital Signs - Last 24 Hrs Temp Pulse Pulse Resp BP BP Pulse Ox 09/21/18 08:00 97 F L 79 18 119/68 92 L 09/20/18 20:00 97.8 F 85 24 96/57 92 L 09/20/18 12:36 78 24 99 09/20/18 10:19 98.9 F 105/68 - General General Appearance: Alert, Oriented x3, Mild distress - Head Head exam: Normal inspection - Eye Eye exam: Normal appearance, PERRL Pupils: Normal accommodation - ENT ENT exam: Normal exam, Mucous membranes moist, Normal external ear exam, Normal orophraynx Ear exam: Normal external inspection. negative: External canal tenderness Nasal Exam: Normal inspection. negative: Discharge, Sinus tenderness Mouth exam: Normal external inspection, Tongue normal Teeth exam: Normal inspection. negative: Dental caries Throat exam: Normal inspection. negative: Tonsillar erythema, Tonsillar exudate - Neck Neck exam: Normal inspection, Full ROM. negative: Tenderness - Respiratory Respiratory exam: Accessory muscle use, Decreased breath sounds - Cardiovascular Cardiovascular Exam: Regular rate, Normal rhythm, Normal heart sounds Peripheral Pulses: 2+: Radial (R), Radial (L), Dorsalis Pedis (R), Dorsalis Pedis (L) - GI/Abdominal GI/Abdominal exam: Soft, Normal bowel sounds. negative: Tenderness - Rectal Rectal exam: Deferred - exam: Deferred - Extremities Extremities exam: Normal inspection, Full ROM, Normal capillary refill, Pedal edema (1+ bilaterally). negative: Tenderness - Back Back exam: Reports: Normal inspection, Full ROM. Denies: Muscle spasm, Rash noted, Tenderness - Neurological Neurological exam: Alert, Oriented X3 - Psychiatric Psychiatric exam: Normal affect, Normal mood - Skin Skin exam: Dry, Intact, Normal color, Warm Hospitalization - Hospitalization Admission Diagnosis: deconditioning due to heart failure. left epistaxis requiring cautery of the left sphenopalatine artery for persistent posterior epistaxis. CAD. CHF. SSS with pacemaker - Problem List (1) DVT prophylaxis Current Visit: Yes Status: Acute Base Code: [id number] - Comment: 09/21/18 - Resuming Eliquis 2.5mg QD - Bun/Cr 31/1.4, age > 75 (2) Physical deconditioning Current Visit: Yes Status: Acute Base Code: R53.81 - OTHER MALAISE Comment: 09/21/18: -Physical deconditioning noted due to CHF and multilple hospitalizations recently -Continued progress with PT/OT (3) Atrial fibrillation Current Visit: No Status: Acute Discharge Diagnosis: Atrial fibrillation type: chronic Qualified Code(s): I48.2 - Chronic atrial fibrillation Base Code: I48.91 - UNSPECIFIED ATRIAL FIBRILLATION Comment: 09/21/18: - Hx of Watchman device placed. Not sure if patient is out of the 45 day window for continued anticoagulation. - Follows with [facility] cardiology managing that Dr. Caal. (4) CHF (congestive heart failure) Current Visit: No Status: Acute Discharge Diagnosis: Heart failure type: systolic Heart failure chronicity: unspecified Qualified Code(s): I50.20 - Unspecified systolic (congestive) heart failure Base Code: I50.9 - HEART FAILURE, UNSPECIFIED Comment: 09/21/18: -Pro-BNP: 14,000 on 08/18 -Lasix 20mg daily -Potassium 5.0, holding daily potassium supplement x 2 days, will recheck potassium at that time (5) COPD (chronic obstructive pulmonary disease) Current Visit: No Status: Acute Discharge Diagnosis: COPD type: COPD with acute exacerbation Qualified Code(s): J44.1 - Chronic obstructive pulmonary disease with (acute) exacerbation Base Code: J44.9 - CHRONIC OBSTRUCTIVE PULMONARY DISEASE, UNSPECIFIED (6) Dyspnea Current Visit: No Status: Acute Discharge Diagnosis: Dyspnea type: unspecified Qualified Code(s): R06.00 - Dyspnea, unspecified Base Code: R06.00 - DYSPNEA, UNSPECIFIED Comment: 09/21/18 - Intermittent in nature. - 92-93% on RA - CXR done on 09/13/18 to evaluate chronic Pleural Effusion which showed no canseco es - US guided thoracentesis 09/17: 800mL pleural fluid aspirated. -Interventional Radiology to do Thoracentesis at [facility] on 09/17/18 in the a.m. -Lasix increased from 20mg daily to BID (7) Pleural effusion Current Visit: No Status: Acute Base Code: J90 - PLEURAL EFFUSION, NOT ELSEWHERE CLASSIFIED Comment: 09/21/18: - Hx of recurrent pleural Effusion, requiring pulmonlogy intervention and drainage - Lasix 20mg daily94% on RA - US guided tap as noted above. - To follow with [employer] on discharge. (8) Full code status Current Visit: Yes Status: Acute Base Code: Z78.9 - OTHER SPECIFIED HEALTH STATUS Comment: 09/21/18: -Full Code this admission - Hospitalization Course Hospital Course: Mr. Al is a87 y/o male with multiple medical conditions the most recent being recurrent pleural effusions and epistaxis involving the left nostril. The patient was admitted to [facility] Swing bed on 08/31/18 for daily physical and occupational therapy due to deconditioning. During admission the patient again developed pleural effusions which led to increasing respiratory distress requiring supplemental oxygen to maintain oxygen saturations. The patient was scheduled to follow up with Pulmonary medicine at [facility] in the ambulatory clinic. However due to worsening respiratory status they were called regarding doing another tap but did not see the need to do so. Interventional Radiology at [facility] was able to do an ultrasound guided thoracentesis yielding 800mL of pleural fluid. The patient's respiratory status improved thereafter and he has been able to maintain saturations > 92% without oxygen. The patient has progressed in terms of his physical conditioning having had PT/OT daily for the past 4 weeks. On examination today the patient is alert, responsive and able to participate in physical examination. His vitals show: HR 79 BP119/68, RR 18, Temp 97, Sats 92% RA. The patient will be resumed on Eliquis 2.5mg for anticoagulation due to chronic a. fib. It is documented that the patient has a Watchman device but I'm not sure of when this was placed. If he is outside of the 45 day window post implantation he may not need to be continued on Eliquis and should be maintained on DAPT with Aspirin and Plavix. We will leave this to be determined by Cardiology when he sees them in clinic next week. He is to follow up in [address] Yost in the office. Medication scripts have been forwarded to [facility] yesterday. Procedures: Imaging and X-Rays 09/05/18 12:24 CHEST 2 VIEWS [RAD] Stat 09/13/18 09:53 CHEST 2 VIEWS [RAD] Stat 09/17/18 07:47 THORACENTESIS [US] Routine 09/17/18 08:13 CHEST 2 VIEWS [RAD] Stat 09/20/18 16:25 CXR [CHEST 1 VIEW] [RAD] Stat Cardiology Procedures 09/19/18 20:09 EKG NOW Abnormal Labs: Abnormal Lab Results 08/31/18 08/31/18 09/09/18 Range/Units 07:34 07:34 06:30 WBC 13.4 H 14.0 H (4.2-12.2) K/uL RBC 3.20 L 3.27 L (4.40-5.70) M/uL Hgb 9.5 L 9.5 L (14.0-18.0) gm/dl Hct 31.6 L 32.3 L (42.0-52.0) % MCV 98.8 H 98.8 H (81-97) fl MCHC 30.1 L 29.4 L (32-36) g/dl RDW 15.9 H 15.6 H (11.5-14.5) % Neutrophils % 87.0 H 90.0 H (47-80) % Lymphocytes % 6.1 L (16-45) % Lymphocytes 7.0 L 7.0 L (16-45) % D-Dimer (0-0.59) mg/L FEU Potassium (3.4-4.5) mmol/L Chloride (98-107) mmol/L BUN 37 H (8-23) mg/dL Creatinine 1.6 H (0.7-1.2) mg/dL Random Glucose (74-109) mg/dL Calcium (8.8-10.2) mg/dL Troponin T (0-0.010) ng/mL NT-Pro-B Natriuret Pep (<450) pg/mL 09/09/18 09/11/18 09/14/18 Range/Units 06:30 06:00 06:27 WBC (4.2-12.2) K/uL RBC (4.40-5.70) M/uL Hgb (14.0-18.0) gm/dl Hct (42.0-52.0) % MCV (81-97) fl MCHC (32-36) g/dl RDW (11.5-14.5) % Neutrophils % (47-80) % Lymphocytes % (16-45) % Lymphocytes (16-45) % D-Dimer (0-0.59) mg/L FEU Potassium 5.1 H 4.7 H (3.4-4.5) mmol/L Chloride 110 H (98-107) mmol/L BUN 45 H 49 H 41 H (8-23) mg/dL Creatinine 1.5 H 1.4 H (0.7-1.2) mg/dL Random Glucose 116 H 124 H (74-109) mg/dL Calcium 8.7 L 8.6 L (8.8-10.2) mg/dL Troponin T (0-0.010) ng/mL NT-Pro-B Natriuret Pep 01295.00 H (<450) pg/mL 09/17/18 09/19/18 09/19/18 Range/Units 06:24 20:45 20:45 WBC (4.2-12.2) K/uL RBC (4.40-5.70) M/uL Hgb (14.0-18.0) gm/dl Hct (42.0-52.0) % MCV (81-97) fl MCHC (32-36) g/dl RDW (11.5-14.5) % Neutrophils % (47-80) % Lymphocytes % (16-45) % Lymphocytes (16-45) % D-Dimer 3.99 H (0-0.59) mg/L FEU Potassium (3.4-4.5) mmol/L Chloride 108 H (98-107) mmol/L BUN 33 H 31 H (8-23) mg/dL Creatinine 1.4 H (0.7-1.2) mg/dL Random Glucose (74-109) mg/dL Calcium 8.4 L (8.8-10.2) mg/dL Troponin T (0-0.010) ng/mL NT-Pro-B Natriuret Pep (<450) pg/mL 09/19/18 09/20/18 Range/Units 20:45 07:23 WBC (4.2-12.2) K/uL RBC (4.40-5.70) M/uL Hgb (14.0-18.0) gm/dl Hct (42.0-52.0) % MCV (81-97) fl MCHC (32-36) g/dl RDW (11.5-14.5) % Neutrophils % (47-80) % Lymphocytes % (16-45) % Lymphocytes (16-45) % D-Dimer (0-0.59) mg/L FEU Potassium (3.4-4.5) mmol/L Chloride (98-107) mmol/L BUN (8-23) mg/dL Creatinine (0.7-1.2) mg/dL Random Glucose (74-109) mg/dL Calcium (8.8-10.2) mg/dL Troponin T 0.072 H 0.057 H (0-0.010) ng/mL NT-Pro-B Natriuret Pep (<450) pg/mL Discharge Medications - Discharge Medications Home Medications: Ambulatory Orders Acetaminophen 650 mg PO Q6H PRN 06/09/18 [Last Taken Unknown] Levothyroxine Sodium 112 mcg PO DAILY 06/09/18 [Last Taken 08/14/18] Melatonin 3 mg PO QHS 06/09/18 [Last Taken 08/14/18] Metoprolol Tartrate 50 mg PO BID 06/09/18 [Last Taken 08/14/18] Nitroglycerin 0.4MG [Nitrostat 0.4MG] 0.4 mg SL Q5MIN PRN 06/09/18 [Last Taken 08/14/18] Olanzapine [Zyprexa] 5 mg PO QHS 06/09/18 [Last Taken 08/14/18] Atorvastatin Calcium [Lipitor] 20 mg PO DAILY 08/14/18 [Last Taken 08/14/18] Omeprazole 40 mg PO DAILYAC 08/14/18 [Last Taken 08/14/18] Diltiazem HCl [Diltiazem 24Hr ER] 120 mg PO DAILY 08/18/18 [Last Taken Unknown] Hydrocodone/Acetaminophen [Hydrocodone-Acetamin 5-325 mg] 1 - 2 each PO Q4H PRN 08/18/18 [Last Taken Unknown] Lidocaine 1 gm TP TID PRN 08/18/18 [Last Taken Unknown] Magnesium Hydroxide [Milk of Magnesia] 1,200 mg PO BID PRN 08/18/18 [Last Taken Unknown] Acetaminophen [Tylenol 325Mg] 650 mg PO Q6H PRN tablet 08/20/18 [Last Taken Unknown] Albuterol Sulfate 0.083% [Neb] [Albuterol Sulfate] 2.5 mg INH RESP.Q4H.WA PRN nebulization solution 08/20/18 [Last Taken Unknown] Benzonatate [Tessalon Perles] 100 mg PO TID PRN capsule 08/20/18 [Last Taken Unknown] Docusate Sodium [Colace] 100 mg PO BID cap 08/20/18 [Last Taken Unknown] Furosemide [Lasix] 20 mg PO BIDDIUR tablet 08/20/18 [Last Taken Unknown] Morphine Sulfate 2 mg IVP Q4H PRN vial 08/20/18 [Last Taken Unknown] Oxymetazoline HCl [Afrin] 15 ml NA Q12H PRN btl 08/20/18 [Last Taken Unknown] Discharge Plan - Discharge Instructions Instructions: Alprazolam (By mouth), Trazodone (By mouth), Olanzapine (By mouth), Pleural Effusion (DC) Additional Instructions: [facility] will send a visiting nurse and therapy to see you at [place]. Appointment with Dr. Yost on ThursdaySeptember 28 at 2:40. Enter through Door E. Appointment with Dr. Her at [facility] on 10/01 at 10:30. Appointment at [facility] on 09/29 at 1:00pm Quality Measures - Quality Measures Quality Measures: Atrial Fibrillation & Atrial Flutter: Chronic Anticoagulation Therapy, Advance Directives, Documentation of Current Medications in Medical Record, Elder Maltreatment Screen and Follow-Up Plan, Heart Failure, Screening for High Blood Pressure and F/U Documented - Current Medications Quality Measure: Measure #130: Documentation of Current Medications Documentation of Current Medications: <Current Medications Documented/Reviewed> [G8427] - Blood Pressure Screening Quality Measure: Screening for High Blood Pressure and Follow-Up Documented Does Patient Have Any of the Following: Active Dx of HTN Blood Pressure Classification: Normal BP Reading Systolic Measurement: 105 Diastolic Measurement: 68 Screening for High Blood Pressure: Patient Exclusion, Hx of HTN [G9744] - Atrial Fibrillation and Atrial Flutter Quality Measure: Atrial Fibrillation & Atrial Flutter: Chronic Anticoagulation Therapy Does Patient Have Any of the Following: No CHADS2 Risk Stratification: Age 75 or Greater, Heart Failure or Impaired LVSF Risk Stratification Summary: One or more high risk factors OR more than one moderate risk factor exists. [M4187] Anticoagulation Therapy: <Oral anticoagulant Prescribed> [[id number]] - Heart Failure (PAT/ARB Therapy) Quality Measure: Heart Failure Left Ventricular Systolic Function: Unknown PAT Inhibitor or ARB Therapy for LVSD: Not Eligible - Heart Failure (Beta-antolin Therapy) Quality Measure: Heart Failure Left Ventricular Systolic Function: Unknown Beta-Antolin Therapy for LVEF < 40%: Not Eligible - Advance Directives Quality Measure: Measure #47: Care Plan Advance Directives Established: Yes Advance Directives Information Provided To Patient: Already Provided Advance Directives on File: No Living Will: Yes Power of Automobile Body Customizer: Yes Power of Automobile Body Customizer Name: mary ann boone Advance Care Planning: <Care Plan/Decision Maker Not Decided; Discussed & Documented> [9334F] - Elder Abuse Suspicion Index Screening: Elder Abuse Suspicion Index Screening Rely on people for bathing, dressing, shopping, banking, etc: Yes Prevented from getting food, clothes, medication, etc: No Made to feel shamed or threatened by someone: No Forced to sign papers or use money against will: No Feel afraid, touched in ways not wanted or hurt physically: No Poor eye contact, withdrawn, malnourished, cuts or bruises: Yes Screening Result: Positive result, One YES response in questions 2-6. EASI Reference Information: Elham WU, Sharif C, Osvaldo D, Jose Juan David.Development and validation of a tool to assist physicians identification of elder abuse: The Elder Abuse Suspicion Index (EASI ). Journal of Elder Abuse and Neglect, 2008; 20 (3): 276-300. - Elder Maltreatment Screen Quality Measures: Elder Maltreatment Screen and Follow-Up Plan Elder Maltreatment Screen: <Negative, No Follow-Up Plan Required> [E8714]
--- NOTE | 2018-09-21 14:56 | Rehab Discharge Summary ---
Patient Information - Patient Information Diagnosis: deconditioning due to heart failure Ordered Treatment: PT Evaluate and Treat Surgery: No Past Medical/Surgical Hx: PAST MEDICAL/SURGICAL HISTORY Past Surgical History cervical neck pacemaker right knee denies rotator cuff PMH - Respiratory Hx Respiratory Disorders Yes Hx Bronchitis Yes Hx Dyspnea Yes Hx Pneumonia Yes Comment: CHF; PLEURAL EFFUSIONS PMH - Cardiovascular Hx Cardiovascular Disorders Yes Hx Abnormal EKG Yes Hx Chest Pain Yes Hx Congestive Heart Failure Yes Hx Irregular Heartbeat Yes: A-fib Hx Pacemaker/Defibrillator Yes: PACEMAKER PMH - Neuro Hx Neurological Disorders No Hx Seizures No PMH - GI Hx Gastrointestinal Disorders Yes Hx Gastroesophageal Reflux Yes PMH - Hx Genitourinary Disorders No PMH - Endocrine Hx Endocrine Disorders Yes Hx Diabetes No Hx Thyroid Disease Yes PMH - Musculoskeletal Hx Musculoskeletal Disorders Yes Comment: increased weakness and decreased mobility PMH - Psych Hx Psychiatric Problems Yes Hx Anxiety Yes Hx Depression Yes Comment: restless at night PMH - Hematology/Oncology Hx Hematology/Oncology No Disorders Comment: RECENT NOSE BLEEDS Premorbid Status: Detail (Pt lives in [facility] (assisted living). He has a walk in shower with a seat and grab bar and a standard height toilet with a grab bar. He has assist for self cares if needed but he would like to be Ind. Staff are responsible for all home mgmt, meal prep and laundry. He does ambulate to the dining room and uses a 4 wheeled walker.) Social History: Detail (Supportive daughter was present during evaluation.) Precautions: [place], Fall Subjective Information - Subjective Information Per Patient (The patient had no complaints of pain. The patient did complain of shortness of breath with activity.) Objective Data - Mental Status Patient Orientation: Oriented x3 - Visual Perception Appears within normal limits for therapeutic activities - ROM Within normal limits - Strength/Tone Not within normal limits (Bilateral LE strength hip flexors and adductors 4/5, hip abductors 4+/5, knee extensors 5/5, knee flexors 4+/5, ankle musculature 5/5.) - Bed Mobility Independent - Transfers Independent (The patient was independent with sit to and from stand transfer.) - Balance Balance Sitting: Good Balance Standing: Fair (The patient's balance using the Tinetti Assessment Tool was which is in the moderate risk for falling category. Patient was initially 18 which is in the high risk for falls category.) - Gait Detail (The patient was ambulatory with 4 wheeled walker a maximum distance of 67 feet. Patient's usual ambulatory distance was 30 to 40 feet.) Therapy Assessment - Therapy Assessment Detail (The patient exhibited improved LE strength and balance. The patient's endurance for activity is variable. The patient's completion of goals were effected by the patient's medical status.) Problem List - Problem List Physical Therapy Problem List: Detail (1) Decreased hip strength bilaterally 2) Decreased standing balance 3) Decreased ability to complete prolonged physical activity.) Occupational Therapy Problem List: Detail (1. Decreased activity tolerance needed for safe and Ind self cares. 2. Decreased Ind with total body showering.) Goals - Goals Physical Therapy Goals: 1. The patient's balance will improve to moderate risk for falling category using Tinetti Assessment Tool. (Goal Met). 2) The patient will ambulate with appropriate assistive device community distance as required in AFC. (Goal partially Met- on one occasion- not consistent). 3) Increase LE strength 1/3 muscle grade to increase stability of gait.(Goal partially Met- not all muscle groups). 4) The patient will tolerate 30 minutes of physical activity with one rest period. ( Met one time- not consistent) Occupational Therapy Goals: 1. Pt will demonstrate improved activity tolerance to allow safe and Ind self cares. 2. Pt will be safe and Ind with total body showering in sitting and standing. 3. Pt will be safe and Ind with functional mobility needed for ADLs. Plan - Plan Physical Therapy Plan: The patient is discharged to [facility]. The patient is to receive Home PT. Occupational Therapy Plan: OT 2-4 days per week to address goals and problem list as above.
--- NOTE | 2018-09-21 15:54 | Rehab Discharge Summary ---
Patient Information - Patient Information Diagnosis: deconditioning due to heart failure Ordered Treatment: OT Evaluate and Treat Surgery: No Past Medical/Surgical Hx: PAST MEDICAL/SURGICAL HISTORY Past Surgical History cervical neck pacemaker right knee denies rotator cuff PMH - Respiratory Hx Respiratory Disorders Yes Hx Bronchitis Yes Hx Dyspnea Yes Hx Pneumonia Yes Comment: CHF; PLEURAL EFFUSIONS PMH - Cardiovascular Hx Cardiovascular Disorders Yes Hx Abnormal EKG Yes Hx Chest Pain Yes Hx Congestive Heart Failure Yes Hx Irregular Heartbeat Yes: A-fib Hx Pacemaker/Defibrillator Yes: PACEMAKER PMH - Neuro Hx Neurological Disorders No Hx Seizures No PMH - GI Hx Gastrointestinal Disorders Yes Hx Gastroesophageal Reflux Yes PMH - Hx Genitourinary Disorders No PMH - Endocrine Hx Endocrine Disorders Yes Hx Diabetes No Hx Thyroid Disease Yes PMH - Musculoskeletal Hx Musculoskeletal Disorders Yes Comment: increased weakness and decreased mobility PMH - Psych Hx Psychiatric Problems Yes Hx Anxiety Yes Hx Depression Yes Comment: restless at night PMH - Hematology/Oncology Hx Hematology/Oncology No Disorders Comment: RECENT NOSE BLEEDS Premorbid Status: Detail (Pt lives in [facility] (assisted living). He has a walk in shower with a seat and grab bar and a standard height toilet with a grab bar. He has assist for self cares if needed but he would like to be Ind. Staff are responsible for all home mgmt, meal prep and laundry. He does ambulate to the dining room and uses a 4 wheeled walker.) Social History: Detail Precautions: [place], Fall Subjective Information - Subjective Information Per Patient Objective Data - Pain Pain Present: No (Pt did not c/o pain.) - Mental Status Patient Orientation: Oriented x3 - Visual Perception Appears within normal limits for therapeutic activities - ROM Not within normal limits (Right shoulder motion impaired due to premorbid rotator cuff injury. Remaining hayley UE AROM WNL.) - Strength/Tone Not within normal limits (Right shoulder strength graded 3-/5 due to premorbid rotator cuff injury. Remaining hayley UE strength 4/5.) - Coordination Appears within normal limits for therapeutic activities - Bed Mobility Independent - Transfers Independent - Balance Balance Sitting: Good Balance Standing: Fair - Sensation Intact - Gait Detail (Pt ambulating short distances in room with 4 wheeled walker Indly.) - ADL's/IADL's Detail (Pt required min assist for total body dressing and showering due to significant fatigue and shortness of breath.) Therapy Assessment - Therapy Assessment Detail (Pt requires min assist for self cares due to shortness of breath with activity.) Problem List - Problem List Physical Therapy Problem List: Detail (1) Decreased hip strength bilaterally 2) Decreased standing balance 3) Decreased ability to complete prolonged physical activity.) Occupational Therapy Problem List: Detail (1. Decreased activity tolerance needed for safe and Ind self cares. 2. Decreased Ind with total body showering.) Goals - Goals Physical Therapy Goals: 1. The patient's balance will improve to moderate risk for falling category using Tinetti Assessment Tool. (Goal Met). 2) The patient will ambulate with appropriate assistive device community distance as required in AFC. (Goal partially Met- on one occasion- not consistent). 3) Increase LE strength 1/3 muscle grade to increase stability of gait.(Goal partially Met- not all muscle groups). 4) The patient will tolerate 30 minutes of physical activity with one rest period. ( Met one time- not consistent) Occupational Therapy Goals: Goals partially met: 1. Pt will demonstrate improved activity tolerance to allow safe and Ind self cares. 2. Pt will be safe and Ind with total body showering in sitting and standing. 3. Pt will be safe and Ind with functional mobility needed for ADLs. Prognosis - Prognosis Good Plan - Plan Physical Therapy Plan: The patient is discharged to [facility]. The patient is to receive Home PT. Occupational Therapy Plan: Pt discharged to [facility]. He will receive continued therapy for endurance and functional activity.
== END 2018-09-21 15:10 | disposition home health service (06) | DRG 292 ==
LOC: MEDSURG 18:50
PROVIDERS: ADMIT Emergency Medicine; ATTEND Internal Medicine
DX: I50.9 Heart failure, unspecified (principal); J44.1 Chronic obstructive pulmonary disease with (acute) exacerbation; J90 Pleural effusion, not elsewhere classified; I48.91 Unspecified atrial fibrillation; N18.2 Chronic kidney disease, stage 2 (mild); R04.0 Epistaxis; Z79.01 Long term (current) use of anticoagulants
CPT/HCPCS: 32555; 71045; 71046; 80048; 83735; 83880; 84484; 85027; 85379; 85610; 93005; 93010; 94640; 94760; 94761; 97110; 97530; 97535; 99306; 99309; 99310; 99316; J7030; J7512; J7613

== ENCOUNTER 2018-10-04 22:11 | Emergency (ER) | payer MEDICARE, BC ==
[2018-10-04 22:57] LABS: ABSOLUTE NEUTROPHIL COUNT 7.42; HEMATOCRIT 31.9 % (42.0-52.0); HEMOGLOBIN 9.2 gm/dl (14.0-18.0); MEAN CELL VOLUME 92.5 fl (81-97); MEAN CORPUSCULAR HEMOGLOBIN 26.6 pg (27-33); MEAN CORPUSCULAR HGB CONC 28.8 g/dl (32-36); MEAN PLATELET VOLUME 9.6 fl (7.4-10.4); PLATELET COUNT 423 K/uL (130-400); RED BLOOD COUNT 3.45 M/uL (4.40-5.70); RED CELL DISTRIBUTION WIDTH 16.5 % (11.5-14.5); WHITE BLOOD COUNT W/O DIFF 10.1 K/uL (4.2-12.2)
[2018-10-04 22:59] LABS: HYPOCHROMIA 1+
--- NOTE | 2018-10-04 23:00 | Emergency Department Record ---
History of Present Illness - General Chief complaint: Pain Stated complaint: BUTT PAIN Time Seen by Provider: 10/04/18 22:24 Source: Patient, EMS Mode of Arrival: EMS Limitations: No limitations - History of Present Illness Initial comments: pt brought in for unclear reason. he c/o pain on his butt,, arms. he is a poor historian. MD Complaint: Extremity pain Onset/Timin -: Week(s) Location: Other History of Same: Yes Radiation: None Severity scale (1-10): >10 Quality: Aching Consistency: Constant Improves with: Nothing Worsens with: Nothing Associated Symptoms: Denies other symptoms - Related Data Home Medications Medication Instructions Recorded Confirmed Last Taken Albuterol Sulfate 0.083% [Neb] 3 ml NEB .EVERY 4-6 HOURS PRN 10/04/18 10/04/18 Unknown [Albuterol Sulfate] Aspirin 81 mg PO DAILY 10/04/18 10/04/18 Unknown Benzonatate [Tessalon] 1 cap PO Q8H PRN 10/04/18 10/04/18 Unknown Bisacodyl [Dulcolax] 10 mg PO BID PRN 10/04/18 10/04/18 Unknown Clopidogrel Bisulfate [Plavix] 75 mg PO DAILY 10/04/18 10/04/18 Unknown Furosemide [Lasix] 20 mg PO DAILY 10/04/18 10/04/18 Unknown Magnesium Hydroxide [Milk of 30 ml PO DAILY PRN 10/04/18 10/04/18 Unknown Magnesia] Pantoprazole Sodium [Protonix] 40 mg PO DAILY 10/04/18 10/04/18 Unknown Potassium Chloride 10 meq PO DAILY 10/04/18 10/04/18 Unknown Trazodone HCl 25 mg PO QHS 10/04/18 10/04/18 Unknown Previous Rx's Medication Instructions Recorded Acetaminophen [Tylenol 325Mg] 650 mg PO Q6H PRN tablet 08/20/18 Allergies Allergy/AdvReac Type Severity Reaction Status Date / Time No Known Drug Allergies Allergy Verified 10/04/18 22:27 Travel Screening - Travel/Exposure Within Last 30 Days Have you traveled within the last 30 days?: No - Travel/Exposure Within Last Year Have you traveled outside the [place] in the last year?: No - Additonal Travel Details Have you been exposed to anyone with a communicable illness?: No - Travel Symptoms Symptom Screening: None Review of Systems ROS unobtainable: Due to mental status Reviewed: No additional complaints except as noted below Constitutional: Reports: As per HPI. Denies: Chills, Fever, Malaise, Night swea ts, Weakness, Weight change Eyes: Reports: As per HPI. Denies: Eye discharge, Eye pain, Photophobia, Vision change ENT: Reports: As per HPI. Denies: Congestion, Dental pain, Ear pain, Epistaxis, Hearing loss, Throat pain Respiratory: Reports: As per HPI. Denies: Cough, Dyspnea, Hemoptysis, Stridor, Wheezes Cardiovascular: Reports: As per HPI. Denies: Arrhythmia, Chest pain, Dyspnea on exertion, Edema, Murmurs, Orthopnea, Palpitations, Paroxysmal nocturnal dyspnea, Rheumatic Fever, Syncope Endocrine: Reports: As per HPI. Denies: Fatigue, Heat or cold intolerance, P olydipsia, Polyuria Gastrointestinal: Reports: As per HPI. Denies: Abdominal pain, Constipation, Diarrhea, Hematemesis, Hematochezia, Melena, Nausea, Vomiting Genitourinary: Reports: As per HPI. Denies: Dysuria, Frequency, Hematuria, Incontinence, Retention, Testicular pain, Testicular mass, Urgency Musculoskeletal: Reports: As per HPI. Denies: Arthralgia, Back pain, Gout, Joint swelling, Myalgia, Neck pain Skin: Reports: As per HPI. Denies: Bruising, Change in color, Change in hair/nails, Lesions, Pruritus, Rash Neurological: Reports: As per HPI. Denies: Abnormal gait, Confusion, Headache, Numbness, Paresthesias, Seizure, Tingling, Tremors, Vertigo, Weakness Psychiatric: Reports: As per HPI. Denies: Anxiety, Auditory hallucinations, Depression, Homicidal thoughts, Suicidal thoughts, Visual hallucinations Hematological/Lymphatic: Reports: As per HPI. Denies: Anemia, Blood Clots, Easy bleeding, Easy bruising, Swollen glands Past Medical History - SOCIAL HISTORY Smoking Status: Former smoker Alcohol Use: None Drug Use: None - RESPIRATORY Hx Respiratory Disorders: Yes Hx Bronchitis: Yes Hx Dyspnea: Yes Hx Pneumonia: Yes Comment:: CHF; PLEURAL EFFUSIONS - CARDIOVASCULAR Hx Cardio Disorders: Yes Hx Abnormal EKG: Yes Hx Chest Pain: Yes Hx CHF: Yes Hx Irregular Heartbeat: Yes (A-fib) Hx Pacemaker/Defib: Yes (PACEMAKER) - NEURO Hx Neuro Disorders: No Hx Seizures: No - GI Hx GI Disorders: Yes Hx Reflux: Yes - Hx Genitourinary Disorders: No - ENDOCRINE Hx Endocrine Disorders: Yes Hx Diabetes: No - MUSCULOSKELETAL Hx Musculoskeletal Disorders: Yes Comment:: increased weakness and decreased mobility - PSYCH Hx Psych Problems: Yes Hx Anxiety: Yes Hx Depression: Yes Comment:: restless at night - HEMATOLOGY/ONCOLOGY Hx Hematology/Oncology Disorders: No Comment:: RECENT NOSE BLEEDS Family Medical History Any Significant Family History?: No Family Hx Comment (NOT TO BE USED IN PLACE OF ITEMS BELOW): Pt not sure Physical Exam - General General Appearance: Alert, Cooperative, Mild distress - Head Head exam: Normal inspection - Eye Eye exam: Normal appearance, PERRL, EOMI Pupils: Normal accommodation - ENT ENT exam: Normal exam, Mucous membranes moist, Normal external ear exam, Normal orophraynx Ear exam: Normal external inspection. negative: External canal tenderness Nasal Exam: Normal inspection. negative: Discharge, Sinus tenderness Mouth exam: Normal external inspection, Tongue normal Teeth exam: Normal inspection. negative: Dental caries Throat exam: Normal inspection. negative: Tonsillar erythema, Tonsillar exudate - Neck Neck exam: Normal inspection, Full ROM. negative: Tenderness - Respiratory Respiratory exam: Normal lung sounds bilaterally. negative: Respiratory distress - Cardiovascular Cardiovascular Exam: Regular rate, Normal rhythm, Normal heart sounds - GI/Abdominal GI/Abdominal exam: Soft, Normal bowel sounds. negative: Tenderness - Rectal Rectal exam: Deferred - exam: Deferred - Extremities Extremities exam: Normal inspection, Full ROM, Normal capillary refill, Pedal edema. negative: Tenderness - Back Back exam: Reports: Normal inspection, Full ROM. Denies: Muscle spasm, Rash noted, Tenderness - Neurological Neurological exam: Alert, CN II-XII intact, Normal gait, Oriented X3 - Psychiatric Psychiatric exam: Normal affect, Normal mood - Skin Skin exam: Dry, Intact, Normal color, Warm, Other (ecchymosis on extremities) Course Vital Signs 10/04/18 22:12 Pulse Rate 89 Respiratory 36 H Rate Blood Pressure 92/38 Pulse Ox 97 Medical Decision Making - Lab Data Result diagrams: 10/04/18 22:45 10/04/18 22:45 Disposition Disposition: Transfer Clinical Impression: Mental status, decreased, Pleural effusion Renal failure Qualifiers: Renal failure chronicity: acute Acute renal failure type: unspecified Qualified Code(s): N17.9 - Acute kidney failure, unspecified CHF (congestive heart failure) Qualifiers: Heart failure type: unspecified Heart failure chronicity: acute Qualified Code(s): I50.9 - Heart failure, unspecified Transfer To: [facility] Reason For Transfer: needs higher level of care, [place]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
[2018-10-04 23:06] LABS: BILIRUBIN,TOTAL 0.8 mg/dL (0.2-1.0); CREATININE 2.8 mg/dL (0.7-1.2)
[2018-10-04 23:07] LABS: TOTAL PROTEIN 6.8 g/dL (6.6-8.7)
[2018-10-04 23:11] LABS: ALB/GLOB RATIO 0.7 (1.1-1.8); ALBUMIN 2.9 g/dL (4.0-5.0)
[2018-10-04 23:29] LABS: INR 1.5; PARTIAL THROMBOPLASTIN TIME 30.4 SECONDS (24.5-39.1)
[2018-10-04] MEDS ORDERED: 0.9% SODIUM CHLORIDE 250ML BAG IV ONE (23:54)
[2018-10-05 00:06] LABS: URINE APPEARANCE CLEAR; URINE BILIRUBIN NEGATIVE (NEGATIVE); URINE BLOOD NEGATIVE (NEGATIVE); URINE COLOR YELLOW; URINE GLUCOSE (UA) NEGATIVE (NEGATIVE); URINE KETONE TRACE (NEGATIVE); URINE LEUKOCYTE ESTERASE NEGATIVE (NEGATIVE); URINE NITRITE NEGATIVE (NEGATIVE)
--- NOTE | 2018-10-05 13:39 | RADIOLOGY REPORT ---
EXAM: CHEST, TWO VIEWS HISTORY: CONFUSION. UNSPECIFIED CHEST PAIN. TECHNIQUE: Supine AP and crosstable lateral views of the chest were obtained. Comparison: Two view chest radiographic examination dated 09/17/18. Portable chest dated 09/20/18. FINDINGS: A dual lead transvenous cardiac pacer remains in place via the left subclavian approach with lead tips in the right atrium and right ventricle respectively. The heart is enlarged. Evaluation of the vasculature is limited by supine technique. There is persistent opacification of the right hemithorax space with costophrenic angle blunting consistent with a combination of pleural effusion and underlying air space disease. Pleural stripe thickening in the apex appears slightly more pronounced likely due to shifting of pleural fluid superiorly. Mild reticular opacity prominence within the right lung is not significantly changed in the interval. Persistent opacity in the retrocardiac left lung base. Diagnostic considerations include round atelectasis, infiltrate and loculated pleural effusion. This does not appear significantly changed. Previously demonstrated left lateral costophrenic angle blunting is no longer present. This could relate to shifting of pleural fluid given supine technique. Left apical pleural and parenchymal scarring persists. IMPRESSION: 1. DUAL LEAD TRANSVENOUS CARDIAC STIMULATOR REMAINS IN PLACE. 2. CARDIOMEGALY. EVALUATION OF THE VASCULATURE IS LIMITED BY SUPINE TECHNIQUE. 3. OPACIFICATION OF THE LOWER RIGHT HEMIDIAPHRAGMS WITH COSTOPHRENIC ANGLE BLUNTING CONSISTENT WITH A COMBINATION OF PLEURAL EFFUSION AND UNDERLYING AIR SPACE DISEASE. UNDERLYING MASS WOULD BE DIFFICULT TO EXCLUDE. 4. PLEURAL STRIPE THICKENING IN THE RIGHT APEX REDEMONSTRATED CONSISTENT WITH SCARRING AND/OR PLEURAL FLUID. THIS APPEARS SLIGHTLY MORE PRONOUNCED IN THE INTERVAL. 5. INTERVAL CLEARING OF LEFT LATERAL COSTOPHRENIC ANGLE BLUNTING. THIS MAY RELATE TO SHIFTING OF PLEURAL FLUID GIVEN SUPINE TECHNIQUE. 6. SOMEWHAT ROUNDED OPACITY IN THE RETROCARDIAC LEFT LUNG BASE REDEMONSTRATED, DISCUSSED ABOVE. JOB NUMBER: [id number] [facility]
--- NOTE | 2018-10-06 05:46 | RADIOLOGY REPORT ---
EXAM: PELVIS, AP HISTORY: LOWER ABDOMEN AND LEFT HIP PAIN. NO REPORTED TRAUMA. TECHNIQUE: Two AP views of the pelvis are obtained. COMPARISON: None. FINDINGS: There is diffuse osteopenia limiting evaluation. No convincing acute fracture nor dislocation. 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 Mild degenerative changes of the sacroiliac joints. Moderate degenerative changes of the lower lumbar spine. Post laminectomy changes at the L5 level. There are small round calcifications within the inferior left hemipelvis consistent with phleboliths. IMPRESSION: 1. OSTEOPENIA LIMITS EVALUATION. 2. NO ACUTE FRACTURE NOR DISLOCATION. 3. MILD DEGENERATIVE CHANGES OF EACH HIP. 4. POSTSURGICAL CHANGES WITHIN THE LOWER LUMBAR SPINE. J[facility]BER: [id number] [facility]
--- NOTE | 2018-10-06 05:53 | CT SCAN REPORT ---
EXAM: CT SCAN HEAD WO CONTRAST HISTORY: CONFUSION. ALTERED LEVEL OF CONSCIOUSNESS. TECHNIQUE: Routine noncontrast CT examination of the head is performed. COMPARISON: None. FINDINGS: The examination is mildly limited by patient motion particularly at the lower levels. There is moderate dilatation of the subarachnoid spaces consistent with generalized atrophy. The ventricles are at the upper limits of normal in size. Moderate periventricular and subcortical white matter lucencies are scattered throughout each cerebral hemisphere, relatively confluent. These are nonspecific but likely areas of chronic microvascular ischemia. No suspicious area of abnormally increased or decreased attenuation is noted throughout the brain substance. There are symmetric hypodensities near the inferior margins of each lentiform nucleus consistent with prominent perivascular spaces, choroid fissure cysts or less likely old lacunar infarcts. No abnormal extra-axial fluid collection. No acute skull fracture. Postsurgical changes are noted involving the posteromedial wall of the left maxillary sinus. There is a small amount of fluid dependently in the left maxillary sinus as well as mild mucosal thickening consistent with sinusitis. Primarily chronic inflammatory changes/mucosal thickening are scattered within the ethmoid air-cells bilaterally. Postcataract surgery changes are noted bilaterally. The orbits, as visualized, are unremarkable. IMPRESSION: 1. NO CT EVIDENCE OF ACUTE MAJOR VESSEL INFARCTION, INTRACRANIAL HEMORRHAGE, NOR MASS. 2. GENERALIZED ATROPHY. WHITE MATTER LUCENCIES SCATTERED IN EACH CEREBRAL HEMISPHERE CONSISTENT WITH CHRONIC MICROVASCULAR ISCHEMIA. 3. POSTSURGICAL CHANGES WITHIN THE MEDIAL WALL OF THE LEFT MAXILLARY SINUS. ACUTE ON CHRONIC INFLAMMATORY CHANGES OF THE LEFT MAXILLARY SINUS. PRIMARILY CHRONIC-APPEARING INFLAMMATORY CHANGES SCATTERED IN MULTIPLE BILATERAL ETHMOID AIR-CELLS. [facility]: [id number] [facility]
== END 2018-10-05 01:18 | disposition short-term general hospital (02) ==
LOC: ER 22:11
DX: N17.9 Acute kidney failure, unspecified (principal); I50.9 Heart failure, unspecified; R41.82 Altered mental status, unspecified; K62.89 Other specified diseases of anus and rectum; R07.9 Chest pain, unspecified; I48.91 Unspecified atrial fibrillation; M25.552 Pain in left hip; Z95.0 Presence of cardiac pacemaker; Z87.891 Personal history of nicotine dependence
CPT/HCPCS: 70450; 71046; 72170; 80053; 81003; 83880; 85027; 85610; 85730; 99285